=== PATIENT | female | born 1980 | race Caucasian/White ===

== ENCOUNTER 2024-06-10 11:31 | Outpatient (OUT) | payer MEDICAID, SELFPAY ==
[2024-06-10 12:02] LABS: Basophils Percent Auto 0.5 % (0.2-2.0); Eosinophils Absolute Auto 0.1 10^3/uL (0.0-0.7); Eosinophils Percent Auto 1.9 % (0.9-7.0); Hemoglobin 13.2 g/dL (12.0-16.0); Immature Granulocytes Abs Auto 0.03 10^3/uL (0.00-0.03); Immature Granulocytes Pct Auto 0.4 % (0.0-0.5); Lymphocytes Absolute Auto 1.8 10^3/uL (1.2-3.8); Mean Corpuscular HGB Conc 32.2 g/dL (29.9-35.2); Mean Corpuscular Hemoglobin 26.8 pg (26.7-34.0); Mean Corpuscular Volume 83.3 fL (81.0-99.0); Mean Platelet Volume 9.9 fL (9.5-13.5); Monocytes Absolute Auto 0.4 10^3/uL (0.3-0.8); Monocytes Percent Auto 5.2 % (1.7-12.0); Neutrophils Absolute Auto 5.1 10^3/uL (1.4-6.5); Platelet Count 300 10^3/uL (150-450); Red Blood Count 4.92 10^6/uL (4.20-5.40); Red Cell Distribution Width 12.4 % (11.0-15.0); White Blood Count 7.5 10^3/uL (4.0-11.0)
[2024-06-10 12:08] LABS: Estimated Average Glucose 100 mg/dL; Glycohemoglobin A1C 5.1 % (4.5-6.2)
[2024-06-10 12:19] LABS: Alanine Aminotransferase 35 U/L (14-59); Albumin Globulin Ratio 0.7; Albumin Level 3.2 g/dL (3.4-5.0); Alkaline Phosphatase 70 U/L (46-116); Anion Gap 8.6; Aspartate Amino Transferase 19 U/L (15-37); BUN Creatinine Ratio 14.5; Bilirubin Total 0.6 mg/dL (0.2-1.0); Calcium 8.8 mg/dL (8.5-10.1); Carbon Dioxide 29.1 mmol/L (21.0-32.0); Chloride 102 mmol/L (98-107); Chol HDL Ratio 5.3; Cholesterol 264 mg/dL (<=200); Estimated GFR (African America >60 (>=60); Estimated GFR (Non-African Ame >60 (>=60); Globulin 4.4 g/dL; Glucose 93 mg/dL (74-106); HDL Cholesterol 50 mg/dL (40-60); Potassium 3.7 mmol/L (3.5-5.1); Sodium 136 mmol/L (136-145); Thyroid Stimulating Hormone 2.815 uIU/mL (0.358-3.740); Total Protein 7.6 g/dL (6.4-8.2); Triglycerides 152 mg/dL (<=150); VLDL CHOLESTEROL 30.4 mg/dL
[2024-06-10 12:30] LABS: Bilirubin Urine NEGATIVE (NEGATIVE); Blood Urine TRACE-L (NEGATIVE); Clarity Urine CLEAR (CLEAR); Color Urine LT. YELLOW (YELLOW); Glucose Urine UA NEGATIVE (NEGATIVE); Ketones Urine NEGATIVE (NEGATIVE); Leukocyte Esterase Urine SMALL (NEGATIVE); Nitrite Urine NEGATIVE (NEGATIVE); Protein Urine NEGATIVE (NEG/TRACE); Urobilinogen Urine 0.2 EU/dL (0.2-1.0)
[2024-06-10 12:57] LABS: Urine Microscopic Indicated YES
[2024-06-10 13:12] LABS: Bacteria Urine MODERATE #/HPF (NONE SEEN); Cast Seen? NONE SEEN #/LPF (NONE SEEN); Crystals Seen? None Seen #/HPF (None Seen); Mucus Urine TRACE (NONE SEEN); RBC Urine 0-2 #/HPF (0-2); Squamous Epithelial Cell Urine FEW #/LPF (NONE/RARE)
== END 2024-06-10 11:32 | disposition home or self-care (01) ==
PROVIDERS: PCP Nurse Practitioner; Visit Provider Nurse Practitioner
DX: Z01.419 Encounter for gynecological examination (general) (routine) without abnormal findings (principal); Z78.9 Other specified health status
CPT/HCPCS: 36415; 80053; 80061; 81001; 83036; 84443; 85025; 87624; 88175

== ENCOUNTER 2024-06-10 21:36 | Outpatient (REF) | payer MEDICAID, SELFPAY | END 2024-06-10 21:37 | disposition home or self-care (01) | LOC: LAB 21:36 | PROVIDERS: PCP Nurse Practitioner; Visit Provider Nurse Practitioner | DX: Z01.419 Encounter for gynecological examination (general) (routine) without abnormal findings (principal) | CPT/HCPCS: 87624; 88175 ==

== ENCOUNTER 2024-06-14 06:54 | Outpatient (RCR) | payer MEDICAID, SELFPAY | END 2024-07-10 10:31 | disposition home or self-care (01) | LOC: PT 06:54 | PROVIDERS: PCP Nurse Practitioner; Visit Provider Nurse Practitioner | DX: M54.50 Low back pain, unspecified (principal) | CPT/HCPCS: 97010; 97110; 97112; 97140; 97161 ==

== ENCOUNTER 2024-06-14 11:22 | Outpatient (OUT) | payer MEDICAID, SELFPAY ==
--- NOTE | 2024-06-14 11:24 | MM_ITS ---
Patient Name: JOSE RODRIGUEZ MR#: [id number] : 1980 Exam Date: 06/14/2024 Ordering Doctor: KIRBY Byrne CNP RADIOLOGY REPORT PROCEDURE: MM TOMOSYNTHESIS SCREENING BI COMPARISON: MG MAMM SCREEN 3D VALERY CAD, 01/24/2022. INDICATIONS: Screening Calculator Name NCI Breast Cancer Risk Assessment Tool 5 Year Breast Cancer Risk 0.60% Lifetime Breast Cancer Risk 8.90% Personal Breast Cancer No Personal Ovarian Cancer No Treatments None Family Cancers Grandmother-paternal with lung cancer at age 66. LOCATION: [facility] BREAST COMPOSITION: The breasts are heterogeneously dense,which may obscure small masses. FINDINGS: DIAGNOSTIC CATEGORY 1--NEGATIVE. RIGHT BREAST: No significant suspicious finding. No significant change has occurred. LEFT BREAST: No significant suspicious finding. No significant change has occurred. RECOMMENDATIONS: ROUTINE MAMMOGRAM AND CLINICAL EVALUATION IN 12 MONTHS. PLEASE NOTE: A NORMAL MAMMOGRAM DOES NOT EXCLUDE THE POSSIBILITY OF BREAST CANCER. A CLINICALLY SUSPICIOUS PALPABLE LUMP SHOULD BE BIOPSIED. Dictated by: Boston Mccarthy M.D. on 06/14/2024 at 14:19 Approved by: Boston Mccarthy M.D. on 06/14/2024 at 14:25
== END 2024-06-14 11:23 | disposition home or self-care (01) ==
LOC: MAMMO 11:22
PROVIDERS: PCP Nurse Practitioner; Visit Provider Nurse Practitioner
DX: Z12.31 Encounter for screening mammogram for malignant neoplasm of breast (principal); M54.50 Low back pain, unspecified; Z80.1 Family history of malignant neoplasm of trachea, bronchus and lung
CPT/HCPCS: 77063; 77067; 97110; 97112; 97140; 97161

== ENCOUNTER 2024-07-29 10:31 | Outpatient (OUT) | payer MEDICAID, SELFPAY ==
[2024-07-29 10:47] LABS: Basophils Percent Auto 0.5 % (0.2-2.0); Eosinophils Absolute Auto 0.2 10^3/uL (0.0-0.7); Eosinophils Percent Auto 2.1 % (0.9-7.0); Immature Granulocytes Abs Auto 0.02 10^3/uL (0.00-0.03); Immature Granulocytes Pct Auto 0.3 % (0.0-0.5); Mean Corpuscular HGB Conc 33.3 g/dL (29.9-35.2); Mean Corpuscular Hemoglobin 27.3 pg (26.7-34.0); Mean Corpuscular Volume 81.8 fL (81.0-99.0); Mean Platelet Volume 10.1 fL (9.5-13.5); Monocytes Absolute Auto 0.3 10^3/uL (0.3-0.8); Neutrophils Absolute Auto 5.3 10^3/uL (1.4-6.5); Neutrophils Percent Auto 68.1 % (43.0-75.0); Platelet Count 264 10^3/uL (150-450); Red Blood Count 4.77 10^6/uL (4.20-5.40); Red Cell Distribution Width 12.5 % (11.0-15.0); White Blood Count 7.8 10^3/uL (4.0-11.0)
--- OUTSIDE RECORDS SUMMARY | 2024-07-29 10:53 | XMS_ITS | CCD ---
Author Organization [facility] Care Team Providers Care Stock Supervisor Name Role Phone AICHHOLZ, STEREO EQUIPMENT INSTALLER TRIP Consulting Unavailable AICHHOLZ, STEREO EQUIPMENT INSTALLER TRIP Primary Care Unavailable AICHHOLZ, STEREO EQUIPMENT INSTALLER TRIP Admitting Unavailable AICHHOLZ, STEREO EQUIPMENT INSTALLER TRIP Attending Unavailable AICHHOLZ, STEREO EQUIPMENT INSTALLER TRIP Consulting Unavailable AICHHOLZ, STEREO EQUIPMENT INSTALLER TRIP Primary Care Unavailable AICHHOLZ, STEREO EQUIPMENT INSTALLER TRIP Admitting Unavailable AICHHOLZ, STEREO EQUIPMENT INSTALLER TRIP Attending Unavailable AICHHOLZ, STEREO EQUIPMENT INSTALLER TRIP Consulting Unavailable AICHHOLZ, STEREO EQUIPMENT INSTALLER TRIP Primary Care Unavailable AICHHOLZ, STEREO EQUIPMENT INSTALLER TRIP Admitting Unavailable AICHHOLZ, STEREO EQUIPMENT INSTALLER TRIP Attending Unavailable AICHHOLZ, STEREO EQUIPMENT INSTALLER TRIP Primary Care Unavailable DR JINNY WHITE V Consulting Unavailable AICHHOLZ, STEREO EQUIPMENT INSTALLER TRIP Admitting Unavailable AICHHOLZ, STEREO EQUIPMENT INSTALLER TRIP Attending Unavailable AICHHOLZ, STEREO EQUIPMENT INSTALLER TRIP Consulting Unavailable AICHHOLZ, TRIP Attending Unavailable Problems Active Problems Problem Classification Problem Date Documented Da te Episodic/Chronic Conditions associated with dizziness or vertigo (4 sources) Dizziness and giddiness; Translations: [DIZZINESS AND GIDDINESS] Onset: 10-31-2022 Episodic Disorders of lipid metabolism (4 sources) Hyperlipidemia, unspecified; Translations: [HYPERLIPIDEMIA UNSPECIFIED] Onset: 01-15-2022 Chronic Mood disorders (1 source) Mood disorders; Translations: [DEPRESSION UNSPECIFIED] Onset: 01-19-2022 Other nutritional; endocrine; and metabolic disorders (1 source) Morbid (severe) obesity due to excess calories; Translations: [MORBID SEVERE OBES D/T EXCESS WILMA] Onset: 01-19-2022 Chronic Other nutritional; endocrine; and metabolic disorders (1 source) Body mass index (BMI) 40.0-44.9, adult; Translations: [BODY MASS INDEX BMI 40.0-44.9 ADULT] Onset: 01-19-2022 Chronic Past or Other Problems Problem Classification Problem Date Documented Da te Episodic/Chronic Genitourinary symptoms and ill-defined conditions (1 source) Asymptomatic microscopic hematuria; Translations: [ASYMPTOMATIC MICROSCOPIC HEMATURIA] Onset: 01-19-2022 Episodic Other screening for suspected conditions (not mental disorders or infectious disease) (8 sources) Encounter for screening mammogram for malignant neoplasm of breast; Translations: [Encounter for screening for malignant neoplasm of cervix] Onset: 01-18-2022 Episodic Residual codes; unclassified (1 source) Family history of malignant neoplasm of trachea, bronchus and lung; Translations: [FAM HX MALIG NEOPLSM TRACH BRON LNG] Onset: 01-26-2022 Episodic Results Test Name Value Interpretation Reference Range Facility CBC AUTO DIFFon 10-31-2022 BASO # 0.0 103/ul Normal 0.0-0.1 [facility] Comment on above: Performed By: #### C BC #### [facility] [address] [place] [address] Dr. Zainab Simpson Basophils/100 WBC (Bld) 0.5 % Normal 0.2-2.0 [facility] Comment on above: Performed By: #### C BC #### [facility] [address] [place] [address] Dr. Zainab Simpson EO # 0.1 103/ul Normal 0.0-0.7 [facility] Comment on above: Performed By: #### C BC #### [facility] [address] [place] [address] Dr. Zainab Simpson Eosinophils/100 WBC (Bld) 1.6 % Normal 0.9-7.[address] [facility] Comment on above: Performed By: #### C BC #### [facility] [address] [place] [address] Dr. Zainab Simpson Erythrocyte distribution width (RBC) [Ratio] 12.2 % Normal 11.0-15.0 [facility] Comment on above: Performed By: #### C BC #### [facility] [address] [place] [address] Dr. Zainab Simpson Hematocrit (Bld) [Volume fraction] 41.2 % Normal 36.0-48.0 [facility] Comment on above: Performed By: #### C BC #### [facility] [address] [place] [address] Dr. Zainab Simpson Hemoglobin (Bld) [Mass/Vol] 13.7 g/dL Normal 12.0-16.0 [facility] Comment on above: Performed By: #### C BC #### [facility] [address] [place] [address] Dr. Zainab Simpson IG # 0.03 10e3/ul Normal 0.00-0.03 [facility] Comment on above: Performed By: #### C BC #### [facility] [address] [place] [address] Dr. Zainab Simpson IG % 0.3 % Normal 0.0-0.5 [facility] Comment on above: Performed By: #### C BC #### [facility] [address] [place] [address] Dr. Zainab Simpson LYMPH # 2.0 103/ul Normal 1.2-3.[address] [facility] Comment on above: Performed By: #### C BC #### [facility] [address] [place] [address] Dr. Zainab Simpson Lymphocytes/100 WBC (Bld) 23.1 % Normal 20.5-60.0 [facility] Comment on above: Performed By: #### C BC #### [facility] [address] [place] [address] Dr. Zainab Simpson MANUAL DIFF REQ NO Normal [facility] Comment on above: Performed By: #### C BC #### [facility] [address] [place] [address] Dr. Zainab Simpson MCH (RBC) [Entitic mass] 27.6 pg Normal 26.7-34.[address] [facility] Comment on above: Performed By: #### C BC #### [facility] [address] [place] [address] Dr. Zainab Simpson MCHC (RBC) [Mass/Vol] 33.3 g/dL Normal 29.9-35.[address] [facility] Comment on above: Performed By: #### C BC #### [facility] [address] [place] [address] Dr. Zainab Simpson MCV (RBC) [Entitic vol] 82.9 fL Normal 81.0-99.[address] [facility] Comment on above: Performed By: #### C BC #### [facility] [address] [place] [address] Dr. Zainab Simpson MONO # 0.3 103/ul Normal 0.3-0.[address] [facility] Comment on above: Performed By: #### C BC #### [facility] [address] [address] [address] Zainab Simpson Monocytes/100 WBC (Bld) 3.7 % Normal 1.7-12.[address] [facility] Comment on above: Performed By: #### C BC #### [facility] [address] [place] [address] Dr. Zainab Simpson NEUT # 6.3 103/ul Normal 1.4-6.[address] [facility] Comment on above: Performed By: #### C BC #### [facility] [address] [place] [address] Dr. Zainab Simpson Neutrophils/100 WBC (Bld) 70.8 % Normal 43.0-75.[address] [facility] Comment on above: Performed By: #### C BC #### [facility] [address] [place] [address] Dr. Zainab Simpson Platelet mean volume (Bld) [Entitic vol] 10.3 fL Normal 9.5-13.[address] [facility] Comment on above: Performed By: #### C BC #### [facility] [address] [place] [address] Dr. Zainab Simpson PLT 289 103/ul Normal 150-[address] [facility] Comment on above: Performed By: #### C BC #### [facility] [address] [place] [address] Dr. Zainab Simpson RBC 4.97 106/ul Normal 4.20-5.[address] [facility] Comment on above: Performed By: #### C BC #### [facility] [address] [place] [address] Dr. Zainab Simpson WBC 8.8 103/ul Normal 4.0-11.0 [facility] Comment on above: Performed By: #### C BC #### [facility] [address] [place] [address] Dr. Zainab Smipson FREE T4on 10-31-2022 Free T4 [Mass/Vol] 0.89 ng/dL Normal 0.76-1.46 [facility] Comment on above: Performed By: #### F T4 #### [facility] [address] [place] [address] Dr. Zainab Simpson PROF 14(COMP METB)on 022 Albumin [Mass/Vol] 3.2 g/dL Critically low 3.4-5.0 [facility] Comment on above: Performed By: #### T SH, CMP #### [facility] [address] [place] [address] Dr. Zainab Simpson Albumin/Globulin [Mass ratio] 0.7 {ratio} Normal [facility] Comment on above: Performed By: #### T SH, CMP #### [facility] [address] [place] [address] Dr. Zainab Simpson ALP [Catalytic activity/Vol] 64 U/L Normal 46-116 [facility] Comment on above: Performed By: #### T SH, CMP #### [facility] [address] [place] [address] Dr. Zainab Simpson ALT [Catalytic activity/Vol] 32 U/L Normal 14-59 [facility] Comment on above: Performed By: #### T SH, CMP #### [facility] [address] [place] [address] Dr. Zainab Simpson Anion gap [Moles/Vol] 11.0 mmol/L Normal [facility] Comment on above: Performed By: #### T SH, CMP #### [facility] [address] [place] [address] Dr. Zainab Simpson AST [Catalytic activity/Vol] 21 U/L Normal 15-37 [facility] Comment on above: Performed By: #### T SH, CMP #### [facility] [address] [place] [address] Dr. Zainab Simpson Bilirubin [Mass/Vol] 0.5 mg/dL Normal 0.2-1.0 [facility] Comment on above: Performed By: #### T SH, CMP #### [facility] [address] [place] [address] Dr. Zainab Simpson Calcium [Mass/Vol] 9.0 mg/dL Normal 8.5-10.1 [facility] Comment on above: Performed By: #### T SH, CMP #### [facility] [address] [place] [address] Dr. Zainab Simpson Chloride [Moles/Vol] 102 mmol/L Normal 98-107 [facility] Comment on above: Performed By: #### T SH, CMP #### [facility] [address] [place] [address] Dr. Zainab Simpson CO2 [Moles/Vol] 30.2 mmol/L Normal 21.0-32.0 [facility] Comment on above: Performed By: #### T SH, CMP #### [facility] [address] [place] [address] Dr. Zainab Simpson Creatinine [Mass/Vol] 0.62 mg/dL Normal 0.55-1.02 [facility] Comment on above: Performed By: #### T SH, CMP #### [facility] [address] [place] [address] Dr. Zainab Simpson EGFR-AF LAO >60 Normal >=60 [facility] Comment on above: Performed By: #### T SH, CMP #### [facility] [address] [place] [address] Dr. Zainab Simpson EGFR-NON AF LAO >60 Normal >=60 [facility] Comment on above: Performed By: #### T SH, CMP #### [facility] [address] [place] [address] Dr. Zainab Simpson Globulin (S) [Mass/Vol] 4.5 g/dL Normal [facility] Comment on above: Performed By: #### T SH, CMP #### [facility] [address] [place] [address] Dr. Zainab Simpson Glucose [Mass/Vol] 90 mg/dL Normal 74-106 [facility] Comment on above: Performed By: #### T SH, CMP #### [facility] [address] [place] [address] Dr. Zainab Simpson Potassium [Moles/Vol] 4.2 mmol/L Normal 3.5-5.1 [facility] Comment on above: Performed By: #### T ERWIN, CMP #### [facility] [address] [place] [address] Dr. Zainab Simpson Protein [Mass/Vol] 7.7 g/dL Normal 6.4-8.2 [facility] Comment on above: Performed By: #### T ERWIN, CMP #### [facility] [address] [place] [address] Dr. Zainab Simpson Sodium [Moles/Vol] 139 mmol/L Normal 136-145 [facility] Comment on above: Performed By: #### T ERWIN, CMP #### [facility] [address] [place] [address] Dr. Zainab Simpson Urea nitrogen [Mass/Vol] 10.0 mg/dL Normal 7.0-18.0 [facility] Comment on above: Performed By: #### T ERWIN, CMP #### [facility] [address] [place] [address] Dr. Zainab Simpson Urea nitrogen/Creatinine [Mass ratio] 16.1 mg/mg Normal [facility] Comment on above: Performed By: #### T ERWIN, CMP #### [facility] [address] [place] [address] Dr. Zainab Simpson TSHon 10-31-2022 TSH 2.431 uIU/mL Normal 0.358-3.740 [facility] Comment on above: Performed By: #### T ERWIN, CMP #### [facility] [address] [place] [address] Dr. Zainab Simpson MG MAMM SCREEN 3D VALERY CADon 01-24-2022 MG MAMM SCREEN 3D VALERY CAD Patient: JOSE RODRIGUEZ Exam Date: 01/24/2022 : 1980 Gender:F Ordering : KIRBY MOCTEZUMA STEREO EQUIPMENT INSTALLER Admission #: [id number] Family : Order #: [id number] CLICK HERE TO VIEW EXAM RADIOLOGY REPORT PROCEDURE: MAMMOGRAM SCREENING 3D BILATERAL CAD COMPARISON: None. INDICATIONS: Screening mammography Calculator Name NCI Breast Cancer Risk Assessment Tool 5 Year Breast Cancer Risk 0.50% Lifetime Breast Cancer Risk 9.00% Personal Breast Cancer No Personal Ovarian Cancer No Treatments None Family Cancers Grandmother-paternal with lung cancer at age 66. LOCATION: [facility] BREAST COMPOSITION: Heterogeneously dense,which may obscure small masses. FINDINGS: DIAGNOSTIC CATEGORY 1--NEGATIVE. Scattered benign-appearing nodules are present. Scattered benign-appearing calcifications are present. RIGHT BREAST: No significant suspicious finding. LEFT BREAST: No significant suspicious finding. RECOMMENDATIONS: ROUTINE MAMMOGRAM AND CLINICAL EVALUATION IN 12 MONTHS. PLEASE NOTE: A NORMAL MAMMOGRAM DOES NOT EXCLUDE THE POSSIBILITY OF BREAST CANCER. A CLINICALLY SUSPICIOUS PALPABLE LUMP SHOULD BE BIOPSIED. Dictated by: Jinny White MD on 01/24/2022 at 10:40 Approved by: Jinny White MD on 01/24/2022 at 10:42 Normal [facility] PAP ACOG PANEL 2: 30 to 65on 01-22-2022 . . Normal [facility] Comment on above: Result Comment: Perf ormed at: WB Performed By: #### [id number] #### [facility] [address] [place] [address] Dr. Zainab Simpson DIAGNOSIS: Comment Normal [facility] Comment on above: Result Comment: NEGA TIVE FOR INTRAEPITHELIAL LESION OR MALIGNANCY. Performed at: WB Performed By: #### [id number] #### [facility] [address] [address] [address] Zainab Simpson HPV Aptima Negative Normal Negative [facility] Comment on above: Result Comment: This nucleic acid amplification test detects fourteen high-risk HPV types (16,18,31,33,35,39,45,51,52,56,58,59,66,68) without differentiation. Performed at: =G Performed By: #### [id number] #### [facility] [address] [address] [address] Zainab Simpson Methodology: Comment Normal [facility] Comment on above: Result Comment: This liquid based ThinPrep(R) pap test was screened with the use of an image guided system. Performed at: WB Performed By: #### [id number] #### [facility] [address] [address] [address] Zainab Simpson Note: Comment Normal [facility] Comment on above: Result Comment: The Pap smear is a screening test designed to aid in the detection of premalignant and malignant conditions of the uterine cervix. It is not a diagnostic procedure and should not be used as the sole means of detecting cervical cancer. Both false-positive and false-negative reports do occur. . Performed at: WB Performed By: #### [id number] #### [facility] [address] [address] [address] Zainab Simpson Performed by: Comment Normal [facility] Comment on above: Result Comment: Loretta Oliveira, Voip Network Engineer (ASCP) Performed at: WB Performed By: #### [id number] #### [facility] [address] [place] [address] Dr. Zainab Simpson Specimen adequacy: Comment Normal [facility] Comment on above: Result Comment: Sati sfactory for evaluation. Endocervical and/or squamous metaplastic cells (endocervical component) are present. Performed at: WB Performed By: #### [id number] #### [facility] [address] [place] [address] Dr. Zainab Simpson Age Gdln ACOG Testing 30-65 Normal [facility] Comment on above: Performed By: #### [id number] #### [facility] [address] [place] [address] Dr. Zainab Simpson VAGINITIS/VAGINOSIS DNA PROB Joe 01-20-2022 Mana species Negative Normal Negative [facility] Comment on above: Performed By: #### V AGINT ####[facility] [address] [address]Dr. Zainab Simpson Gardnerella vaginalis Negative Normal Negative [facility] Comment on above: Performed By: #### V AGINT ####[facility] [address] [id number]. Zainab Simpson Trichomonas vaginalis Negative Normal Negative [facility] Comment on above: Performed By: #### V AGINT ####[facility] [address] [id number]. Zainab Simpson CBC AUTO DIFFon 01-15-2022 BASO # 0.0 103/ul Normal 0.0-0.[address] [facility] Comment on above: Performed By: #### C BC ####[facility] [address] [address]Dr. Zainab Simpson Basophils/100 WBC (Bld) 0.5 % Normal 0.2-2.[address] [facility] Comment on above: Performed By: #### C BC ####[facility] [address] [id number]. Zainab Simpson EO # 0.2 103/ul Normal 0.0-0.[address] [facility] Comment on above: Performed By: #### C BC ####[facility] [address] [place], [place] [id number]. Zainab Simpson Eosinophils/100 WBC (Bld) 1.8 % Normal 0.9-7.[address] [facility] Comment on above: Performed By: #### C BC ####[facility] [address] [phone]. Zainab Simpson Erythrocyte distribution width (RBC) [Ratio] 12.8 % Normal 11.0-15.[address] [facility] Comment on above: Performed By: #### C BC ####[facility] [address] [place], [place] [address]Dr. Zainab Simpson Hematocrit (Bld) [Volume fraction] 40.9 % Normal 36.0-48.[address] [facility] Comment on above: Performed By: #### C BC ####[facility] [address] [phone]. Zainab Simpson Hemoglobin (Bld) [Mass/Vol] 13.4 g/dL Normal 12.0-16.[address] [facility] Comment on above: Performed By: #### C BC ####[facility] [address] [phone]. Zainab Simpson IG # 0.02 10e3/ul Normal 0.00-0.[address] [facility] Comment on above: Performed By: #### C BC ####[facility] [address] [id number]. Zainab Simpson IG % 0.2 % Normal 0.0-0.[address] [facility] Comment on above: Performed By: #### C BC ####[facility] [address] [id number]. Zainab Simpson LYMPH # 2.3 103/ul Normal 1.2-3.[address] [facility] Comment on above: Performed By: #### C BC ####[facility] [address] [address]Dr. Zainab Simpson Lymphocytes/100 WBC (Bld) 26.8 % Normal 20.5-60.[address] [facility] Comment on above: Performed By: #### C BC ####[facility] [address] [address]Dr. Zainab Simpson MANUAL DIFF REQ NO Normal [facility] Comment on above: Performed By: #### C BC ####[facility] [address] [address]Dr. Zainab Simpson MCH (RBC) [Entitic mass] 27.6 pg Normal 26.7-34.[address] [facility] Comment on above: Performed By: #### C BC ####[facility] [address] [address]Dr. Zainab Simpson MCHC (RBC) [Mass/Vol] 32.8 g/dL Normal 29.9-35.[address] [facility] Comment on above: Performed By: #### C BC ####[facility] [address] [address]Dr. Zainab Simpson MCV (RBC) [Entitic vol] 84.3 fL Normal 81.0-99.[address] [facility] Comment on above: Performed By: #### C BC ####[facility] [address] [phone]. Zainab Simpson MONO # 0.4 103/ul Normal 0.3-0.[address] [facility] Comment on above: Performed By: #### C BC ####[facility] [address] [phone]. Zainab Simpson Monocytes/100 WBC (Bld) 4.9 % Normal 1.7-12.[address] [facility] Comment on above: Performed By: #### C BC ####[facility] [address] [phone]. Zainab Simpson NEUT # 5.7 103/ul Normal 1.4-6.[address] [facility] Comment on above: Performed By: #### C BC ####[facility] [address] [phone]. Zainab Simpson Neutrophils/100 WBC (Bld) 65.8 % Normal 43.0-75.[address] [facility] Comment on above: Performed By: #### C BC ####[facility] [address] [phone]. Zainab Simpson Platelet mean volume (Bld) [Entitic vol] 10.1 fL Normal 9.5-13.[address] [facility] Comment on above: Performed By: #### C BC ####[facility] [address] [phone]. Zainab Simpson PLT 265 103/ul Normal 150-[address] [facility] Comment on above: Performed By: #### C BC ####[facility] [address] [phone]. Zainab Simpson RBC 4.85 106/ul Normal 4.20-5.[address] [facility] Comment on above: Performed By: #### C BC ####[facility] [address] [phone]. Zainab Simpson WBC 8.7 103/ul Normal 4.0-11.[address] [facility] Comment on above: Performed By: #### C BC ####[facility] [address] [place], [place] [id number]. Zainab Simpson GLYCOHEMOGLOBIN A1Con 2021 ADA RECOMMENDATION ADA THERAPEUTIC TARGET 6.0 - 7.0 ACTION SUGGESTED > 7.0 Normal [facility] Comment on above: Performed By: #### A 1C #### [facility] [address] [address] [address] Zainab Simpson Glucose [Mass/Vol] 111 mg/dL Normal [facility] Comment on above: Performed By: #### A 1C #### [facility] [address] [address] [address] Zainab Simpson HbA1c (Bld) [Mass fraction] 5.5 % Normal <=6.0 [facility] Comment on above: Performed By: #### A 1C #### [facility] [address] [place] [address] Dr. Zainab Simpson LIPID PROFILEon 01-15-2022 CHOL-HDL RATIO NORM SEE BELOW Normal [facility] Comment on above: Result Comment: 3.3 - 4.4 LOW RISK 4.4 - 7.1 AVERAGE RISK 7.1 - 11.0 MODERATE RISK >11.0 HIGH RISK Performed By: #### T SH, LIPID, CMP #### [facility] [address] [address] [address] Zainab Simpson Cholesterol [Mass/Vol] 194 mg/dL Normal <=200 [facility] Comment on above: Performed By: #### T SH, LIPID, CMP #### [facility] [address] [address] [address] Zainab Simpson Cholesterol in HDL [Mass/Vol] 50 mg/dL Normal [facility] Comment on above: Performed By: #### T SH, LIPID, CMP #### [facility] [address] [address] [address] Zainab Simpson Cholesterol in LDL [Mass/Vol] 108.8 mg/dL Normal [facility] Comment on above: Performed By: #### T SH, LIPID, CMP #### [facility] [address] [place] [address] Dr. Zainab Simpson Cholesterol.total/Cho lesterol in HDL [Mass ratio] 3.9 {ratio} Normal [facility] Comment on above: Performed By: #### T SH, LIPID, CMP #### [facility] [address] [address] [address] Zainab Simpson HDL NORMAL > or = 60 mg/dl - LO W CARDIOVASCULAR RISK <40 mg/dl - HIGH CARDIOVASCULAR RISK Normal [facility] Comment on above: Performed By: #### T SH, LIPID, CMP #### [facility] [address] [address] [address] Zainab Simpson LDL CALC NORMAL SEE BELOW Normal [facility] Comment on above: Result Comment: <100 mg/dl OPTIMAL 100 - 129 mg/dl NEAR OR ABOVE OPTIMAL 130 - 159 mg/dl BORDERLINE HIGH 160 - 189 mg/dl HIGH >190 mg/dl VERY HIGH Performed By: #### T SH, LIPID, CMP #### [facility] [address] [address] [address] Zainab Simpson Triglyceride [Mass/Vol] 176 mg/dL Critically high <=150 [facility] Comment on above: Performed By: #### T SH, LIPID, CMP #### [facility] [address] [address] [address] Zainab Simpson VLDL CALC 35.2 mg/dL Normal [facility] Comment on above: Performed By: #### T SH, LIPID, CMP #### [facility] [address] [address] [address] Zainab Simpson PROF 14(COMP METB)on 022 Albumin [Mass/Vol] 3.2 g/dL Critically low 3.5-5.0 [facility] Comment on above: Performed By: #### T SH, LIPID, CMP ####[facility] [address] [address]Dr. Zainab Simpson Albumin/Globulin [Mass ratio] 0.7 {ratio} Normal [facility] Comment on above: Performed By: #### T SH, LIPID, CMP ####[facility] [address] [address]Dr. Zainab Simpson ALP [Catalytic activity/Vol] 70 U/L Normal 38-126 [facility] Comment on above: Performed By: #### T SH, LIPID, CMP ####[facility] [address] [address]Dr. aZinab Simpson ALT [Catalytic activity/Vol] 28 U/L Normal 9-[address] [facility] Comment on above: Performed By: #### T SH, LIPID, CMP ####[facility] [address] [address]Dr. Zainab Simpson Anion gap [Moles/Vol] 7.7 mmol/L Normal [facility] Comment on above: Performed By: #### T SH, LIPID, CMP ####[facility] [address] [place], [place] [address]Dr. Zainab Simpson AST [Catalytic activity/Vol] 14 U/L Normal 14-36 [facility] Comment on above: Performed By: #### T SH, LIPID, CMP ####[facility] [address] [place], [place] [address]Dr. Zainab Simpson Bilirubin [Mass/Vol] 0.4 mg/dL Normal 0.2-1.[address] [facility] Comment on above: Performed By: #### T SH, LIPID, CMP ####[facility] [address] [place], [place] [address]Dr. Zainab Simpson Calcium [Mass/Vol] 9.1 mg/dL Normal 8.4-10.2 [facility] Comment on above: Performed By: #### T SH, LIPID, CMP ####[facility] [address] [place], [place] [address]Dr. Zainab Simpson Chloride [Moles/Vol] 105 mmol/L Normal 98-[address] [facility] Comment on above: Performed By: #### T SH, LIPID, CMP ####[facility] [address] [place], [place] [address]Dr. Zainab Simpson CO2 [Moles/Vol] 31.0 mmol/L Critically high 22.0-30.0 [facility] Comment on above: Performed By: #### T SH, LIPID, CMP ####[facility] [address] [place], [place] [address]Dr. Zainab Simpson Creatinine [Mass/Vol] 0.63 mg/dL Normal 0.52-1.[address] [facility] Comment on above: Performed By: #### T ERWIN, LIPID, CMP ####[facility] [address] [place] [id number]. Zainab Simpson EGFR-AF LAO >60 Normal >=60 [facility] Comment on above: Performed By: #### T SH, LIPID, CMP ####[facility] [address] [place] [id number]. Zainab Simpson EGFR-NON AF LAO >60 Normal >=[address] [facility] Comment on above: Performed By: #### T ERWIN, LIPID, CMP ####[facility] [address] [address]Dr. Zainab Simpson Globulin (S) [Mass/Vol] 4.3 g/dL Normal [facility] Comment on above: Performed By: #### T ERWIN, LIPID, CMP ####[facility] [address] [address]Dr. Zainab Simpson Glucose [Mass/Vol] 92 mg/dL Normal 74-106 [facility] Comment on above: Performed By: #### T ERWIN, LIPID, CMP ####[facility] [address] [address]Dr. Zainab Simpson Potassium [Moles/Vol] 3.7 mmol/L Normal 3.4-5.[address] [facility] Comment on above: Performed By: #### T ERWIN, LIPID, CMP ####[facility] [address] [address]Dr. Zainab Simpson Protein [Mass/Vol] 7.5 g/dL Normal 6.1-8.2 [facility] Comment on above: Performed By: #### T ERWIN, LIPID, CMP ####[facility] [address] [address]Dr. Zainab Simpson Sodium [Moles/Vol] 140 mmol/L Normal 137-145 [facility] Comment on above: Performed By: #### T ERWIN, LIPID, CMP ####[facility] [address] [place] [id number]. Zainab Simpson Urea nitrogen [Mass/Vol] 9.0 mg/dL Normal 7.0-17.[address] [facility] Comment on above: Performed By: #### T ERWIN, LIPID, CMP ####[facility] [address] [place], [place] [address]Dr. Zainab Simpson Urea nitrogen/Creatinine [Mass ratio] 14.3 mg/mg Normal [facility] Comment on above: Performed By: #### T ERWIN, LIPID, CMP ####[facility] [address] [place], [place] [address]AeDr. Zainab Simpson TSHon 01-15-2022 TSH 4.291 uIU/mL Normal 0.470-4.680 [facility] Comment on above: Performed By: #### T SH, LIPID, CMP #### [facility] [address] [place] [address] Dr. Zainab Simpson TSH RANGE SEE BELOW Normal [facility] Comment on above: Result Comment: <0.3 4 UIU/ml HYPERTHYROID 0.34-5.60 UIU/ml EUTHYROID >5.60 UIU/ml HYPOTHYROID Performed By: #### T ERWIN, LIPID, CMP #### [facility] [address] [place] [address] Dr. Zainab Simpson UA RANDOM W/MICROSCOPICon BACTERIA TRACE Abnormal NONE SEEN [facility] Comment on above: Performed By: #### U AMIC #### [facility] [address] [address] [address] Zainab Simpson Bilirubin Ql (U) Negative Normal NEGATIVE [facility] Comment on above: Performed By: #### U AMIC #### [facility] [address] [address] [address] Zainab Simpson CAST NONE SEEN Normal NONE SEEN [facility] Comment on above: Performed By: #### U AMIC #### [facility] [address] [place] [address] Dr. Zainab Simpson Clarity (U) CLEAR Normal CLEAR [facility] Comment on above: Performed By: #### U AMIC #### [facility] [address] [address] [address] Zainab Simpson Color (U) LT. YELLOW Normal YELLOW [facility] Comment on above: Performed By: #### U AMIC #### [facility] [address] [place] [address] Dr. Zainab Simpson Crystals LM Nom (Urine sed) NONE SEEN Normal NONE SEEN [facility] Comment on above: Performed By: #### U AMIC #### [facility] [address] [address] [address] Zainab Simpson Epithelial cells LM Ql (Urine sed) FEW Abnormal NONE SEEN /RARE [facility] Comment on above: Performed By: #### U AMIC #### [facility] [address] [place] [address] Dr. Zainab Simpson Glucose Ql (U) Negative Normal NEGATIVE [facility] Comment on above: Performed By: #### U AMIC #### [facility] [address] [place] [address] Dr. Zainab Simpson Hemoglobin Ql (U) Negative Normal NEGATIVE [facility] Comment on above: Performed By: #### U AMIC #### [facility] [address] [place] [address] Dr. Zainab Simpson Ketones Ql (U) Negative Normal NEGATIVE [facility] Comment on above: Performed By: #### U AMIC #### [facility] [address] [place] [address] Dr. Zainab Simpson LEUKOCYTES Negative Normal NEGATIVE [facility] Comment on above: Performed By: #### U AMIC #### [facility] [address] [place] [address] Dr. Zainab Simpson MUCOUS NONE SEEN Normal NONE SEEN [facility] Comment on above: Performed By: #### U AMIC #### [facility] [address] [place] [address] Dr. Zainab Simpson Nitrite Ql (U) Negative Normal NEGATIVE [facility] Comment on above: Performed By: #### U AMIC #### [facility] [address] [place] [address] Dr. Zainab Simpson pH (U) 6.0 [pH] Normal 5-[address] [facility] Comment on above: Performed By: #### U AMIC #### [facility] [address] [address] [address] Zainab Simpson RBC NONE SEEN Abnormal 0-[address] [facility] Comment on above: Performed By: #### U AMIC #### [facility] [address] [address] [address] Zainab Simpson SPEC GRAVITY 1.025 Normal 1.005-<=1.025 [facility] Comment on above: Performed By: #### U AMIC #### [facility] [address] [address] [address] Zainab Simpson UA PROTEIN Negative Normal NEGATIVE/ TRACE [facility] Comment on above: Performed By: #### U AMIC #### [facility] [address] [address] [address] Zainab Simpson Urobilinogen Qn (U) 0.2 {Robyn'U}/dL Normal 0.2 - 1. 0 [facility] Comment on above: Performed By: #### U AMIC #### [facility] [address] [address] [address] Zainab Simpson WBC 0-2 Abnormal NONE SEEN [facility] Comment on above: Performed By: #### U AMIC #### [facility] [address] [address] [address] Zainab Simpson Encounters Encounter Date Encounter Type Care Provider Facility Start: 06-10-2024 End: 06-10-2024 ambulatory TRIP AICHHOLZ Not Available Start: 10-31-2022 End: 11-01-2022 ambulatory [employer] TRIP AICHHOLZ Facility:[facility] Start: 01-24-2022 End: 01-25-2022 ambulatory [employer] TRIP AICHHOLZ Facility:[facility] Start: 01-18-2022 End: 01-18-2022 ambulatory [employer] TRIP AICHHOLZ Facility:[facility] Start: 01-15-2022 End: 01-16-2022 ambulatory [employer]ST[employer] TRIP AICHHOLZ Facility:[facility] Payers Date Payer Category Payer Unknown [id number] 2.16.84 [id number] 1980 Unknown [id number] 2.16.84 [id number] 1980 Unknown [id number] 2.16.84 [id number] 1980 Unknown [id number] 2.16.84 [id number] 1980 Unknown [id number] 2.16.84 [id number] 1959 Unknown [id number] Unknown [id number] Summary Purpose Family History No Family History Records FoundNo Family History Records Found Advance Directives No Advanced Directives Records FoundNo Advanced Directives Records Found Additional Source Comments INFORMATION SOURCE (unrecogn ized section and content) DATE CREATED AUTHOR 01/11/2023 [facility] DATE CREATED AUTHOR AUTHOR'S JAYRO WREN 06/12/2024 [facility] EPIC FOR RECORDS PERTAINING TO PATIENTS WHO ARE OR HAVE BEEN ENROLLED IN A CHEMICAL DEPENDENCY/SUBSTANCEABUSE PROGRAM, SOME INFORMATION MAY BE OMITTED. This clinical summary was aggregated from multiple sources. Caution should be exercised in using it in the provision of clinical care. This summary normalizes information from multiple sources, and as a consequence, information in this document may materially change the coding, format and clinical context of patient data. In addition, data may be omitted in some cases. CLINICAL DECISIONS SHOULD BE BASED ON THE PRIMARY CLINICAL RECORDS. [facility] [employer] provides no warranty or guarantee of the accuracy or completeness of information in this document.
[2024-07-29 11:28] LABS: INR 0.99; Prothrombin Time 10.5 sec (9.0-11.6)
[2024-07-29 11:45] LABS: Free T4 0.94 ng/dL (0.76-1.46)
[2024-07-29 11:52] LABS: Thyroid Stimulating Hormone 2.547 uIU/mL (0.358-3.740)
[2024-07-29 12:02] LABS: HCG Quantitative <1 mIU/mL
== END 2024-07-29 10:32 | disposition home or self-care (01) ==
LOC: LAB 10:33
PROVIDERS: PCP Nurse Practitioner; Visit Provider Obstetrics & Gynecology
DX: R10.30 Lower abdominal pain, unspecified (principal); T83.89XA Other specified complication of genitourinary prosthetic devices, implants and grafts, initial encounter; N92.0 Excessive and frequent menstruation with regular cycle
CPT/HCPCS: 36415; 84439; 84443; 84702; 85025; 85610; 85730

== ENCOUNTER 2024-08-30 10:22 | Outpatient (OUT) | payer MEDICAID, SELFPAY ==
--- NOTE | 2024-08-30 10:28 | US_ITS ---
The [address] [address] Patient Name: JOSE RODRIGUEZ MRN: [id number] date: 1980 Sex: F Assigned Patient Location: Current Patient Location: Accession/Order Number: [id number] Exam Date: 08/30/2024 10:30 Report Date: 09/01/2024 04:45 At the request of: JOELLEN BALLESTEROS Procedure: US pelvis w/ transvaginal EXAMINATION: US pelvis w/ transvaginal HISTORY: Lower Abdominal Pain, Heavy Menses Due To IUD COMPARISON: No relevant comparison available. TECHNIQUE: Transabdominal and/or transvaginal sonographic examination was performed as indicated by examination type. FINDINGS: UTERUS: Normal size and appearance. Uterus size: 9.7 x 5.5 x 5.9 cm ENDOMETRIUM: IUD within lower endometrial cavity and cervix. Endometrial thickness: 8 mm RIGHT OVARY: Normal size and appearance. Duplex Doppler demonstrates normal waveform and flow; resistive index 0.6. Ovary size: 1.9 x 3.8 x 2.6 cm LEFT OVARY: Normal size and appearance. Duplex Doppler demonstrates normal waveform and flow; resistive index 0.5. Ovary size: 3.6 x 2.0 x 2.7 cm CUL-DE-SAC: Unremarkable. No significant free fluid. BLADDER: Unremarkable. OTHER: None. US/US pelvis w/ transvaginal IMPRESSION: 1. IUD is present, but is low within the endometrial cavity extending into the cervical canal. Electronically authenticated by: ABELARDO HALEY Date: 09/01/2024 04:45
--- OUTSIDE RECORDS SUMMARY | 2024-08-30 10:38 | XMS_ITS | CCD ---
Author Organization [facility] Care Team Providers Care Dental Technology Advisor Name Role Phone AICHHOLZ, CLIENT SERVICE CONSULTANT TRIP Consulting Unavailable AICHHOLZ, CLIENT SERVICE CONSULTANT TRIP Primary Care Unavailable AICHHOLZ, CLIENT SERVICE CONSULTANT TRIP Admitting Unavailable AICHHOLZ, CLIENT SERVICE CONSULTANT TRIP Attending Unavailable AICHHOLZ, CLIENT SERVICE CONSULTANT TRIP Consulting Unavailable AICHHOLZ, CLIENT SERVICE CONSULTANT TRIP Primary Care Unavailable AICHHOLZ, CLIENT SERVICE CONSULTANT TRIP Admitting Unavailable AICHHOLZ, CLIENT SERVICE CONSULTANT TRIP Attending Unavailable AICHHOLZ, CLIENT SERVICE CONSULTANT TRIP Consulting Unavailable AICHHOLZ, CLIENT SERVICE CONSULTANT TRIP Primary Care Unavailable AICHHOLZ, CLIENT SERVICE CONSULTANT TRIP Admitting Unavailable AICHHOLZ, CLIENT SERVICE CONSULTANT TRIP Attending Unavailable AICHHOLZ, CLIENT SERVICE CONSULTANT TRIP Primary Care Unavailable DR JINNY WHITE V Consulting Unavailable AICHHOLZ, CLIENT SERVICE CONSULTANT TRIP Admitting Unavailable AICHHOLZ, CLIENT SERVICE CONSULTANT TRIP Attending Unavailable AICHHOLZ, CLIENT SERVICE CONSULTANT TRIP Consulting Unavailable AICHHOLZ, TRIP Attending Unavailable JOELLEN BALLESTEROS Attending Unavailable AICHHOLZ, RTIP Referring Unavailable Problems Active Problems Problem Classification Problem [...] 10-31-2022 BASO # 0.0 103/ul Normal 0.0-0.1 [facility] Comment on above: Performed By: #### C BC #### [facility] [address] [place] [address] Dr. Zainab Simpson Basophils/100 WBC (Bld) 0.5 % Normal 0.2-2.0 [facility] Comment on above: Performed By: #### C BC #### [facility] [address] [place] [address] Dr. Zainab Simpson EO # 0.1 103/ul Normal 0.0-0.7 [facility] Comment on above: Performed By: #### C BC #### [facility] [address] [address] [address] Zainab Simpson Eosinophils/100 WBC (Bld) 1.6 % Normal 0.9-7.0 [facility] Comment on above: Performed By: #### C BC #### [facility] [address] [place] [address] Dr. Zainab Simpson Erythrocyte distribution width (RBC) [Ratio] 12.2 % Normal 11.0-15.0 [facility] Comment on above: Performed By: #### C BC #### [facility] [address] [place] [address] Dr. Zainab Simpson Hematocrit (Bld) [Volume fraction] 41.2 % Normal 36.0-48.0 [facility] Comment on above: Performed By: #### C BC #### [facility] [address] [place] [address] Dr. Zainab Simpson Hemoglobin (Bld) [Mass/Vol] 13.7 g/dL Normal 12.0-16.0 [facility] Comment on above: Performed By: #### C BC #### [facility] [address] [place] [address] Dr. Zainab Simpson IG # 0.03 10e3/ul Normal 0.00-0.03 [facility] Comment on above: Performed By: #### C BC #### [facility] [address] [place] [address] Dr. Zainab Simpson IG % 0.3 % Normal 0.0-0.5 [facility] Comment on above: Performed By: #### C BC #### [facility] [address] [place] [address] Dr. Zainab Simpson LYMPH # 2.0 103/ul Normal 1.2-3.8 [facility] Comment on above: Performed By: #### C BC #### [facility] [address] [place] [address] Dr. Zainab Simpson Lymphocytes/100 WBC (Bld) 23.1 % Normal 20.5-60.0 [facility] Comment on above: Performed By: #### C BC #### [facility] [address] [place] [address] Dr. Zainab Simpson MANUAL DIFF REQ NO Normal [facility] Comment on above: Performed By: #### C BC #### [facility] [address] [place] [address] Dr. Zainab Simpson MCH (RBC) [Entitic mass] 27.6 pg Normal 26.7-34.0 [facility] Comment on above: Performed By: #### C BC #### [facility] [address] [place] [address] Dr. Zainab Simpson MCHC (RBC) [Mass/Vol] 33.3 g/dL Normal 29.9-35.2 [facility] Comment on above: Performed By: #### C BC #### [facility] [address] [address] [address] Zainab Simpson MCV (RBC) [Entitic vol] 82.9 fL Normal 81.0-99.0 [facility] Comment on above: Performed By: #### C BC #### [facility] [address] [address] [address] Zainab Simpson MONO # 0.3 103/ul Normal 0.3-0.8 [facility] Comment on above: Performed By: #### C BC #### [facility] [address] [place] [address] Dr. Zainab Simpson Monocytes/100 WBC (Bld) 3.7 % Normal 1.7-12.0 [facility] Comment on above: Performed By: #### C BC #### [facility] [address] [place] [address] Dr. Zainab Simpson NEUT # 6.3 103/ul Normal 1.4-6.5 [facility] Comment on above: Performed By: #### C BC #### [facility] [address] [place] [address] Dr. Zainab Simpson Neutrophils/100 WBC (Bld) 70.8 % Normal 43.0-75.0 [facility] Comment on above: Performed By: #### C BC #### [facility] [address] [place] [address] Dr. Zainab Simpson Platelet mean volume (Bld) [Entitic vol] 10.3 fL Normal 9.5-13.5 [facility] Comment on above: Performed By: #### C BC #### [facility] [address] [place] [address] Dr. Zainab Simpson PLT 289 103/ul Normal 150-450 [facility] Comment on above: Performed By: #### C BC #### [facility] [address] [address] [address] Zainab Simpson RBC 4.97 106/ul Normal 4.20-5.40 [facility] Comment on above: Performed By: #### C BC #### [facility] [address] [place] [address] Dr. Zainab Simpson WBC 8.8 103/ul Normal 4.0-11.0 [facility] Comment on above: Performed By: #### C BC #### [facility] [address] [place] [address] Dr. Zainab Simpson FREE T4on 10-31-2022 Free T4 [Mass/Vol] 0.89 ng/dL Normal 0.76-1.46 [facility] Comment on above: Performed By: #### F T4 #### [facility] [address] [place] [address] Dr. Zainab Simpson PROF 14(COMP METB)on 022 Albumin [Mass/Vol] 3.2 g/dL Critically low 3.4-5.0 [facility] Comment on above: Performed By: #### T SH, CMP #### [facility] [address] [place] [address] Dr. Zainab Simpson Albumin/Globulin [Mass ratio] 0.7 {ratio} Normal [facility] Comment on above: Performed By: #### T SH, CMP #### [facility] [address] [place] [address] Dr. Zainab Simpson ALP [Catalytic activity/Vol] 64 U/L Normal 46-116 [facility] Comment on above: Performed By: #### T SH, CMP #### [facility] [address] [place] [address] Dr. Zainab Simpson ALT [Catalytic activity/Vol] 32 U/L Normal 14-59 [facility] Comment on above: Performed By: #### T SH, CMP #### [facility] [address] [place] [address] Dr. Zainab Simpson Anion gap [Moles/Vol] 11.0 mmol/L Normal [facility] Comment on above: Performed By: #### T SH, CMP #### [facility] [address] [place] [address] Dr. Zainab Simpson AST [Catalytic activity/Vol] 21 U/L Normal 15-37 [facility] Comment on above: Performed By: #### T SH, CMP #### [facility] [address] [address] [address] Zainab Simpson Bilirubin [Mass/Vol] 0.5 mg/dL Normal 0.2-1.0 [facility] Comment on above: Performed By: #### T SH, CMP #### [facility] [address] [place] [address] Dr. Zainab Simpson Calcium [Mass/Vol] 9.0 mg/dL Normal 8.5-10.1 [facility] Comment on above: Performed By: #### T SH, CMP #### [facility] [address] [address] [address] Zainab Simpson Chloride [Moles/Vol] 102 mmol/L Normal 98-107 [facility] Comment on above: Performed By: #### T SH, CMP #### [facility] [address] [place] [address] Dr. Zainab Simpson CO2 [Moles/Vol] 30.2 mmol/L Normal 21.0-32.0 [facility] Comment on above: Performed By: #### T SH, CMP #### [facility] [address] [place] [address] Dr. Zainab Simpson Creatinine [Mass/Vol] 0.62 mg/dL Normal 0.55-1.02 [facility] Comment on above: Performed By: #### T SH, CMP #### [facility] [address] [place] [address] Dr. Zainab Simpson EGFR-AF ESTONIAN >60 Normal >=60 [facility] Comment on above: Performed By: #### T SH, CMP #### [facility] [address] [place] [address] Dr. Zainab Simpson EGFR-NON AF ESTONIAN >60 Normal >=60 [facility] Comment on above: Performed By: #### T SH, CMP #### [facility] [address] [place] [address] Dr. Zainab Simpson Globulin (S) [Mass/Vol] 4.5 g/dL Normal [facility] Comment on above: Performed By: #### T SH, CMP #### [facility] [address] [address] [address] Zainab Simpson Glucose [Mass/Vol] 90 mg/dL Normal 74-106 [facility] Comment on above: Performed By: #### T SH, CMP #### [facility] [address] [address] [address] Zainab Simpson Potassium [Moles/Vol] 4.2 mmol/L Normal 3.5-5.1 [facility] Comment on above: Performed By: #### T SH, CMP #### [facility] [address] [address] [address] Zainab Simpson Protein [Mass/Vol] 7.7 g/dL Normal 6.4-8.2 [facility] Comment on above: Performed By: #### T SH, CMP #### [facility] [address] [place] [address] Dr. Zainab Simpson Sodium [Moles/Vol] 139 mmol/L Normal 136-145 [facility] Comment on above: Performed By: #### T SH, CMP #### [facility] [address] [place] [address] Dr. Zainab Simpson Urea nitrogen [Mass/Vol] 10.0 mg/dL Normal 7.0-18.0 [facility] Comment on above: Performed By: #### T SH, CMP #### [facility] [address] [place] [address] Dr. Zainab Simpson Urea nitrogen/Creatinine [Mass ratio] 16.1 mg/mg Normal [facility] Comment on above: Performed By: #### T SH, CMP #### [facility] [address] [address] [address] Zainab Simpson TSHon 10-31-2022 TSH 2.431 uIU/mL Normal 0.358-3.740 [facility] Comment on above: Performed By: #### T SH, CMP #### [facility] [address] [address] [address] Zainab Simpson MG MAMM SCREEN 3D VALERY CADon 01-24-2022 MG MAMM SCREEN 3D VALERY CAD Patient: JOSE RODRIGUEZ Exam Date: 01/24/2022 : 1980 Gender:F Ordering : KIRBY MOCTEZUMA CLIENT SERVICE CONSULTANT Admission #: [id number] Family : Order #: [id number] CLICK HERE TO VIEW EXAM RADIOLOGY REPORT PROCEDURE: MAMMOGRAM SCREENING 3D BILATERAL CAD COMPARISON: None. INDICATIONS: Screening mammography Calculator Name NCI Breast Cancer Risk Assessment Tool 5 Year Breast Cancer Risk 0.50% Lifetime Breast Cancer Risk 9.00% Personal Breast Cancer No Personal Ovarian Cancer No Treatments None Family Cancers Grandmother-paternal with lung cancer at age 66. LOCATION: [facility] BREAST COMPOSITION: Heterogeneously dense,which may obscure [...] White MD on 01/24/2022 at 10:42 Normal [facility] PAP ACOG PANEL 2: 30 to 65on 01-22-2022 . . Normal [facility] Comment on above: Result Comment: Perf ormed at: WB Performed By: #### [id number] #### [facility] [address] [address] [address] Zainab Simpson DIAGNOSIS: Comment Normal [facility] Comment on above: Result Comment: NEGA TIVE FOR INTRAEPITHELIAL LESION OR MALIGNANCY. Performed at: WB Performed By: #### [id number] #### [facility] [address] [address] [address] Zainab Simpson HPV Aptima Negative Normal Negative [facility] Comment on above: Result Comment: This nucleic acid amplification test detects fourteen high-risk HPV types (16,18,31,33,35,39,45,51,52,56,58,59,66,68) without differentiation. Performed at: =G Performed By: #### [id number] #### [facility] [address] [address] [address] Zainab Simpson Methodology: Comment Normal [facility] Comment on above: Result Comment: This liquid based ThinPrep(R) pap test was screened with the use of an image guided system. Performed at: WB Performed By: #### [id number] #### [facility] [address] [address] [address] Zainab Simpson Note: Comment Normal [facility] Comment on above: Result Comment: The Pap smear is a screening test designed to aid in the detection of premalignant and malignant conditions of the uterine cervix. It is not a diagnostic procedure and should not be used as the sole means of detecting cervical cancer. Both false-positive and false-negative reports do occur. . Performed at: WB Performed By: #### [id number] #### [facility] [address] [place] [address] Dr. Zainab Simpson Performed by: Comment Normal [facility] Comment on above: Result Comment: Loretta Oliveira, Webbing Supervisor (ASCP) Performed at: WB Performed By: #### [id number] #### [facility] [address] [address] [address] Zainab Simpson Specimen adequacy: Comment Normal [facility] Comment on above: Result Comment: Sati sfactory for evaluation. Endocervical and/or squamous metaplastic cells (endocervical component) are present. Performed at: WB Performed By: #### [id number] #### [facility] [address] [place] [address] Dr. Zainab Simpson Age Gdln ACOG Testing 30-65 [facility] Comment on above: Performed By: #### [id number] #### [facility] [address] [address] [address] Zainab Simpson VAGINITIS/VAGINOSIS DNA PROB Joe 01-20-2022 Mana species Negative Normal Negative [facility] Comment on above: Performed By: #### V AGINT ####[facility] [address] [address]. Zainab Simpson Gardnerella vaginalis Negative Normal Negative [facility] Comment on above: Performed By: #### V AGINT ####[facility] [address] [address]. Zainab Simpson Trichomonas vaginalis Negative Normal Negative [facility] Comment on above: Performed By: #### V AGINT ####[facility] [address] [id number]. Zainab Simpson CBC AUTO DIFFon 01-15-2022 BASO # 0.0 103/ul Normal 0.0-0.1 [facility] Comment on above: Performed By: #### C BC ####[facility] [address] [place], [place] [address]Dr. Avriladelina Simpson Basophils/100 WBC (Bld) 0.5 % Normal 0.2-2.0 [facility] Comment on above: Performed By: #### C BC ####[facility] [address] [place], [place] [address]Dr. Zainab Calvin EO # 0.2 103/ul Normal 0.0-0.7 [facility] Comment on above: Performed By: #### C BC ####[facility] [address] [place], [place] [address]Dr. Zainab Calvin Eosinophils/100 WBC (Bld) 1.8 % Normal 0.9-7.0 [facility] Comment on above: Performed By: #### C BC ####[facility] [address] [place], [place] [address]Dr. Zainab Simpson Erythrocyte distribution width (RBC) [Ratio] 12.8 % Normal 11.0-15.0 [facility] Comment on above: Performed By: #### C BC ####[facility] [address] [place], [place] [address]Dr. Avriladelina Simpson Hematocrit (Bld) [Volume fraction] 40.9 % Normal 36.0-48.0 [facility] Comment on above: Performed By: #### C BC ####[facility] [address] [place], [place] [address]Dr. Zainab Simpson Hemoglobin (Bld) [Mass/Vol] 13.4 g/dL Normal 12.0-16.0 [facility] Comment on above: Performed By: #### C BC ####[facility] [address] [address]DrYogi Simpson IG # 0.02 10e3/ul Normal 0.00-0.03 [facility] Comment on above: Performed By: #### C BC ####[facility] [address] [address]DrYogi Simpson IG % 0.2 % Normal 0.0-0.5 [facility] Comment on above: Performed By: #### C BC ####[facility] [address] [address]DrYogi Simpson LYMPH # 2.3 103/ul Normal 1.2-3.8 [facility] Comment on above: Performed By: #### C BC ####[facility] [address] [address]DrYogi Simpson Lymphocytes/100 WBC (Bld) 26.8 % Normal 20.5-60.0 [facility] Comment on above: Performed By: #### C BC ####[facility] [address] [address]DrYogi Simpson MANUAL DIFF REQ NO Normal [facility] Comment on above: Performed By: #### C BC ####[facility] [address] [id number]. Zainab Simpson MCH (RBC) [Entitic mass] 27.6 pg Normal 26.7-34.0 [facility] Comment on above: Performed By: #### C BC ####[facility] [address] [id number] Simpsno MCHC (RBC) [Mass/Vol] 32.8 g/dL Normal 29.9-35.2 [facility] Comment on above: Performed By: #### C BC ####[facility] [address] [id number] Simpson MCV (RBC) [Entitic vol] 84.3 fL Normal 81.0-99.0 [facility] Comment on above: Performed By: #### C BC ####[facility] [address] [address]Dr. Zainab Simpson MONO # 0.4 103/ul Normal 0.3-0.8 [facility] Comment on above: Performed By: #### C BC ####[facility] [address] [address]Dr. Zainab Simpson Monocytes/100 WBC (Bld) 4.9 % Normal 1.7-12.0 [facility] Comment on above: Performed By: #### C BC ####[facility] [address] [place], [place] [address]Dr. Zainab Simpson NEUT # 5.7 103/ul Normal 1.4-6.5 [facility] Comment on above: Performed By: #### C BC ####[facility] [address] [place], [place] [address]Dr. Zainab Simpson Neutrophils/100 WBC (Bld) 65.8 % Normal 43.0-75.0 [facility] Comment on above: Performed By: #### C BC ####[facility] [address] [place], [place] [address]Dr. Zainab Simpson Platelet mean volume (Bld) [Entitic vol] 10.1 fL Normal 9.5-13.5 [facility] Comment on above: Performed By: #### C BC ####[facility] [address] [place], [place] [address]Dr. Zainab Simpson PLT 265 103/ul Normal 150-450 [facility] Comment on above: Performed By: #### C BC ####[facility] [address] [place], [place] [address]Dr. Zainab Simpson RBC 4.85 106/ul Normal 4.20-5.40 [facility] Comment on above: Performed By: #### C BC ####[facility] [address] [address]Dr. Zainab Simpson WBC 8.7 103/ul Normal 4.0-11.0 [facility] Comment on above: Performed By: #### C BC ####[facility] [address] [address]Dr. Zainab Simpson GLYCOHEMOGLOBIN A1Con 2021 ADA RECOMMENDATION ADA THERAPEUTIC TARGET 6.0 - 7.0 ACTION SUGGESTED > 7.0 Normal [facility] Comment on above: Performed By: #### A 1C #### [facility] [address] [address] [address] Zainab Simpson Glucose [Mass/Vol] 111 mg/dL Normal [facility] Comment on above: Performed By: #### A 1C #### [facility] [address] [address] [address] Zainab Simpson HbA1c (Bld) [Mass fraction] 5.5 % Normal <=6.0 [facility] Comment on above: Performed By: #### A 1C #### [facility] [address] [address] [address] Zainab Simpson LIPID PROFILEon 01-15-2022 CHOL-HDL RATIO NORM SEE BELOW Normal [facility] Comment on above: Result Comment: 3.3 - 4.4 LOW RISK 4.4 - 7.1 AVERAGE RISK 7.1 - 11.0 MODERATE RISK >11.0 HIGH RISK Performed By: #### T ERWIN, LIPID, CMP #### [facility] [address] [address] [address] Zainab Simpson Cholesterol [Mass/Vol] 194 mg/dL Normal <=200 [facility] Comment on above: Performed By: #### T ERWIN, LIPID, CMP #### [facility] [address] [address] [address] Zainab Simpson Cholesterol in HDL [Mass/Vol] 50 mg/dL Normal [facility] Comment on above: Performed By: #### T ERWIN, LIPID, CMP #### [facility] [address] [address] [address] Zainab Simpson Cholesterol in LDL [Mass/Vol] 108.8 mg/dL Normal [facility] Comment on above: Performed By: #### T SH, LIPID, CMP #### [facility] [address] [address] [address] Zainab Simpson Cholesterol.total/Cho lesterol in HDL [Mass ratio] 3.9 {ratio} Normal [facility] Comment on above: Performed By: #### T ERWIN, LIPID, CMP #### [facility] [address] [place] [address] Dr. Zainab Simpson HDL NORMAL > or = 60 mg/dl - LO W CARDIOVASCULAR RISK <40 mg/dl - HIGH CARDIOVASCULAR RISK Normal [facility] Comment on above: Performed By: #### T ERWIN, LIPID, CMP #### [facility] [address] [address] [address] Zainab Simpson LDL CALC NORMAL SEE BELOW Normal [facility] Comment on above: Result Comment: <100 mg/dl OPTIMAL 100 - 129 mg/dl NEAR OR ABOVE OPTIMAL 130 - 159 mg/dl BORDERLINE HIGH 160 - 189 mg/dl HIGH >190 mg/dl VERY HIGH Performed By: #### T ERWIN, LIPID, CMP #### [facility] [address] [address] [address] Zainab Simpson Triglyceride [Mass/Vol] 176 mg/dL Critically high <=150 [facility] Comment on above: Performed By: #### T ERWIN, LIPID, CMP #### [facility] [address] [address] [address] Zainab Simpson VLDL CALC 35.2 mg/dL Normal [facility] Comment on above: Performed By: #### T ERWIN, LIPID, CMP #### [facility] [address] [place] [address] Dr. Zainab Simpson PROF 14(COMP METB)on 022 Albumin [Mass/Vol] 3.2 g/dL Critically low 3.5-5.0 [facility] Comment on above: Performed By: #### T ERWIN, LIPID, CMP ####[facility] [address] [address]Dr. Zainab Simpson Albumin/Globulin [Mass ratio] 0.7 {ratio} Normal [facility] Comment on above: Performed By: #### T ERWIN, LIPID, CMP ####[facility] [address] [address]Dr. Zainab Simpson ALP [Catalytic activity/Vol] 70 U/L Normal 38-126 [facility] Comment on above: Performed By: #### T ERWIN LIPID, CMP ####[facility] [address] [address]Dr. Zainab Simpson ALT [Catalytic activity/Vol] 28 U/L Normal 9-52 [facility] Comment on above: Performed By: #### T ERWIN LIPID, CMP ####[facility] [address] [address]Dr. Zainab Simpson Anion gap [Moles/Vol] 7.7 mmol/L Normal [facility] Comment on above: Performed By: #### T ERWIN LIPID, CMP ####[facility] [address] [place], [place] [address]Dr. Zainab Simpson AST [Catalytic activity/Vol] 14 U/L Normal 14-36 [facility] Comment on above: Performed By: #### T ERWIN LIPID, CMP ####[facility] [address] [place], [place] [address]Dr. Zainab Simpson Bilirubin [Mass/Vol] 0.4 mg/dL Normal 0.2-1.3 [facility] Comment on above: Performed By: #### T ERWIN LIPID, CMP ####[facility] [address] [place], [place] [address]Dr. Zainab Simpson Calcium [Mass/Vol] 9.1 mg/dL Normal 8.4-10.2 [facility] Comment on above: Performed By: #### T ERWIN LIPID, CMP ####[facility] [address] [place], [place] [address]Dr. Zainab Simpson Chloride [Moles/Vol] 105 mmol/L Normal 98-107 [facility] Comment on above: Performed By: #### T ERWIN LIPID, CMP ####[facility] [address] [address]Dr. Zainab Simpson CO2 [Moles/Vol] 31.0 mmol/L Critically high 22.0-30.0 [facility] Comment on above: Performed By: #### T ERWIN LIPID, CMP ####[facility] [address] [address]Dr. Zainab Simpson Creatinine [Mass/Vol] 0.63 mg/dL Normal 0.52-1.04 [facility] Comment on above: Performed By: #### T SH, LIPID, CMP ####[facility] [address] [address]Dr. Zainab Simpson EGFR-AF ESTONIAN >60 Normal >=60 [facility] Comment on above: Performed By: #### T SH, LIPID, CMP ####[facility] [address] [address]Dr. Zainab Simpson EGFR-NON AF ESTONIAN >60 Normal >=60 [facility] Comment on above: Performed By: #### T SH, LIPID, CMP ####[facility] [address] [place], [place] [address]Dr. Zainab Simpson Globulin (S) [Mass/Vol] 4.3 g/dL Normal [facility] Comment on above: Performed By: #### T SH, LIPID, CMP ####[facility] [address] [place], [place] [address]Dr. Zainab Simpson Glucose [Mass/Vol] 92 mg/dL Normal 74-106 [facility] Comment on above: Performed By: #### T SH, LIPID, CMP ####[facility] [address] [place], [place] [address]Dr. Zainab Simpson Potassium [Moles/Vol] 3.7 mmol/L Normal 3.4-5.0 [facility] Comment on above: Performed By: #### T SH, LIPID, CMP ####[facility] [address] [place], [place] [address]Dr. Zainab Simpson Protein [Mass/Vol] 7.5 g/dL Normal 6.1-8.2 The [facility] Comment on above: Performed By: #### T SH, LIPID, CMP ####[facility] [address] [place], [place] [address]Dr. Zainab Simpson Sodium [Moles/Vol] 140 mmol/L Normal 137-145 The [facility] Comment on above: Performed By: #### T SH, LIPID, CMP ####[facility] [address] [id number] Simpson Urea nitrogen [Mass/Vol] 9.0 mg/dL Normal 7.0-17.0 [facility] Comment on above: Performed By: #### T SH, LIPID, CMP ####[facility] [address] [id number] Simpson Urea nitrogen/Creatinine [Mass ratio] 14.3 mg/mg Normal [facility] Comment on above: Performed By: #### T SH, LIPID, CMP ####[facility] [address] [address]DrYogi Simpson TSHon 01-15-2022 TSH 4.291 uIU/mL Normal 0.470-4.680 [facility] Comment on above: Performed By: #### T SH, LIPID, CMP #### [facility] [address] [place] [address] Dr. Zainab Simpson TSH RANGE SEE BELOW Normal [facility] Comment on above: Result Comment: <0.3 4 UIU/ml HYPERTHYROID 0.34-5.60 UIU/ml EUTHYROID >5.60 UIU/ml HYPOTHYROID Performed By: #### T SH, LIPID, CMP #### [facility] [address] [place] [address] Dr. Zainab Simpson UA RANDOM W/MICROSCOPICon BACTERIA TRACE Abnormal NONE SEEN [facility] Comment on above: Performed By: #### U AMIC #### [facility] [address] [place] [address] Dr. Zainab Simpson Bilirubin Ql (U) Negative Normal NEGATIVE [facility] Comment on above: Performed By: #### U AMIC #### [facility] [address] [place] [address] Dr. Zainab Simpson CAST NONE SEEN Normal NONE SEEN [facility] Comment on above: Performed By: #### U AMIC #### [facility] [address] [place] [address] Dr. Zainab Simpson Clarity (U) CLEAR Normal CLEAR [facility] Comment on above: Performed By: #### U AMIC #### [facility] [address] [address] [address] Zainab Simpson Color (U) LT. YELLOW Normal YELLOW [facility] Comment on above: Performed By: #### U AMIC #### [facility] [address] [address] [address] Zainab Simpson Crystals LM Nom (Urine sed) NONE SEEN Normal NONE SEEN [facility] Comment on above: Performed By: #### U AMIC #### [facility] [address] [address] [address] Zainab Simpson Epithelial cells LM Ql (Urine sed) FEW Abnormal NONE SEEN /RARE [facility] Comment on above: Performed By: #### U AMIC #### [facility] [address] [place] [address] Dr. Zainab Smipson Glucose Ql (U) Negative Normal NEGATIVE [facility] Comment on above: Performed By: #### U AMIC #### [facility] [address] [address] [address] Zainab Simpson Hemoglobin Ql (U) Negative Normal NEGATIVE [facility] Comment on above: Performed By: #### U AMIC #### [facility] [address] [place] [address] Dr. Zainab Simpson Ketones Ql (U) Negative Normal NEGATIVE [facility] Comment on above: Performed By: #### U AMIC #### [facility] [address] [address] [address] Zainab Simpson LEUKOCYTES Negative Normal NEGATIVE [facility] Comment on above: Performed By: #### U AMIC #### [facility] [address] [address] [address] Zainab Simpson MUCOUS NONE SEEN Normal NONE SEEN [facility] Comment on above: Performed By: #### U AMIC #### [facility] [address] [place] [address] Dr. Zainab Simpson Nitrite Ql (U) Negative Normal NEGATIVE [facility] Comment on above: Performed By: #### U AMIC #### [facility] [address] [address] [address] Zainab Simpson pH (U) 6.0 [pH] Normal 5-9 [facility] Comment on above: Performed By: #### U AMIC #### [facility] [address] [address] [address] Zainab Simpson RBC NONE SEEN Abnormal 0-2 [facility] Comment on above: Performed By: #### U AMIC #### [facility] [address] [address] [address] Zainab Simpson SPEC GRAVITY 1.025 Normal 1.005-<=1.025 The [facility] Comment on above: Performed By: #### U AMIC #### [facility] [address] [place] [address] Dr. Zainab Simpson UA PROTEIN Negative Normal NEGATIVE/ TRACE [facility] Comment on above: Performed By: #### U AMIC #### [facility] [address] [address] [address] Zainab Simpson Urobilinogen Qn (U) 0.2 {Robyn'U}/dL Normal 0.2 - 1. 0 [facility] Comment on above: Performed By: #### U AMIC #### [facility] [address] [place] [address] Dr. Zainab Simpson WBC 0-2 Abnormal NONE SEEN [facility] Comment on above: Performed By: #### U AMIC #### [facility] [address] [address] [address] Zainab Simpson Encounters Encounter Date Encounter Type Care Provider Facility Start: 07-29-2024 End: 07-29-2024 ambulatory JOELLEN LESLI Not Available Start: 06-10-2024 End: 06-10-2024 ambulatory TRIP AICHHOLZ Not Available Start: 10-31-2022 End: 11-01-2022 ambulatory CLIENT SERVICE CONSULTANT TRIP AICHMARCUSZ Facility:[facility] Start: 01-24-2022 End: 01-25-2022 ambulatory CLIENT SERVICE CONSULTANT TRIP AICHMARCUSZ Facility:[facility] Start: 01-18-2022 End: 01-18-2022 ambulatory CLIENT SERVICE CONSULTANT TRIP AICHHOLZ Facility:[facility] Start: 01-15-2022 End: 01-16-2022 ambulatory KIRBY MOCTEZUMA Facility:[facility] Payers Date Payer Category Payer Unknown [id number] 2.16.84 [id number] 1980 Unknown [id number] 2.16.84 [id number] 1981 Unknown [id number] 2.16.84 [id number] 1981 Unknown [id number] 2.16.84 [id number] 1981 Unknown [id number] 2.16.84 [id number] 1981 Unknown [id number] 2.16.84 [id number] 1959 Unknown [id number] Medicaid [id number] Summary Purpose Family History No Family History Records FoundNo Family History Records Found Advance Directives No Advanced Directives Records FoundNo Advanced Directives Records Found Additional Source Comments INFORMATION SOURCE (unrecogn ized section and content) DATE CREATED AUTHOR 01/11/2023 [facility] DATE CREATED AUTHOR AUTHORChristian WREN 07/29/2024 [facility] EPIC FOR RECORDS PERTAINING TO PATIENTS [...] BE BASED ON THE PRIMARY CLINICAL RECORDS. [facility] [employer] [facility]. provides no warranty or guarantee of the accuracy or completeness of information in this document.
== END 2024-08-30 10:23 | disposition home or self-care (01) ==
LOC: US 10:22
PROVIDERS: PCP Nurse Practitioner; Visit Provider Obstetrics & Gynecology
DX: R10.30 Lower abdominal pain, unspecified (principal); T83.89XA Other specified complication of genitourinary prosthetic devices, implants and grafts, initial encounter; N92.0 Excessive and frequent menstruation with regular cycle
CPT/HCPCS: 76830; 76856

== ENCOUNTER 2024-09-02 13:12 | Outpatient (REF) | payer MEDICAID, SELFPAY ==
--- OUTSIDE RECORDS SUMMARY | 2024-09-06 13:18 | XMS_ITS | CCD ---
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 Name Role Phone AICHHOLZ, HAND BENDER TRIP Consulting Unavailable AICHHOLZ, HAND BENDER TRIP Primary Care Unavailable AICHHOLZ, HAND BENDER TRIP Admitting Unavailable AICHHOLZ, HAND BENDER TRIP Attending Unavailable AICHHOLZ, HAND BENDER TRIP Consulting Unavailable AICHHOLZ, HAND BENDER TRIP Primary Care Unavailable AICHHOLZ, HAND BENDER TRIP Admitting Unavailable AICHHOLZ, HAND BENDER TRIP Attending Unavailable AICHHOLZ, HAND BENDER TRIP Consulting Unavailable AICHHOLZ, HAND BENDER TRIP Primary Care Unavailable AICHHOLZ, HAND BENDER TRIP Admitting Unavailable AICHHOLZ, HAND BENDER TRIP Attending Unavailable AICHHOLZ, HAND BENDER TRIP Primary Care Unavailable DR JINNY WHITE V Consulting Unavailable AICHHOLZ, HAND BENDER TRIP Admitting Unavailable AICHHOLZ, HAND BENDER TRIP Attending Unavailable AICHHOLZ, HAND BENDER TRIP Consulting Unavailable AICHHOLZ, TRIP Attending Unavailable FLAKOJOELLEN TABARES Attending Unavailable AICHHOLZ, TRIP Referring Unavailable JOELLEN ARRIOLA Attending Unavailable Brad Lala MD Primary Care Provider Joellen Arriola Attending Unavailable Joellen Arriola Admitting Unavailable DO Joellen Arriola Attending Provider Allergies Allergy Classification Reported Allergen(s) Allergy Type Date of Onset Reaction(s) Facility (1 source) Wound Dressing Adhesive Propensity to adverse reactions to drug 4 Rash [facility] Medications Current Medications Medication Drug Class(es) Dates Sig (Normalized) Sig (Original) atorvastatin 10 mg oral tablet (1 source) HMG-CoA Reductase Inhibitor Start: 08-13-2024 End: 09-12-2024 take 1 tablet by mouth at bedtime atorvastatin (Lipitor) 10 MG tablet Indications: Mixed hyperlipidemia (CMS/HCC) Take 1 tablet (10 mg) by mouth at bedtime 30 tablet 1 08/13/2024 09/12/2024 Active chlorhexidine gluconate 40 mg/ml medicated liquid soap (1 source) Start: 06-10-2024 Chlorhexidine Gluconate (Hibiclens) 4 % solution Indications: Folliculitis Apply to torso and breast area leave on for 5 minutes and then wash off. Do this daily for 5 doses. Avoid use on face 118 mL 06/10/2024 Active Problems Active Problems Problem Classification Problem Date Documented Date Episodic/Chronic Abdominal pain (2 sources) Pain in female pelvis; Translations: [Pelvic and perineal pain] Onset: 07-29-2024 09-02-2024 Episodic Anxiety disorders (1 source) Mixed anxiety and depressive disorder; Translations: [Other specified anxiety disorders] Onset: 06-10-2024 06-10-2024 Chronic Conditions associated with dizziness or vertigo (4 sources) Dizziness and giddiness; Translations: [DIZZINESS AND GIDDINESS] Onset: 10-31-2022 Episodic Contraceptive and procreative management (1 source) Sterilization requested; Translations: [Encounter for sterilization] 09-02-2024 Episodic Disorders of lipid metabolism (5 sources) Hyperlipidemia, unspecified; Translations: [Mixed hyperlipidemia] Onset: 01-15-2022 Chronic Inflammatory diseases of female pelvic organs (1 source) Bacterial vaginosis; Translations: [Acute vaginitis] Onset: 06-12-2024 06-12-2024 Episodic Menstrual disorders (4 sources) Menorrhagia; Translations: [Excessive and frequent menstruation with regular cycle] Onset: 06-10-2024 09-02-2024 Chronic Mood disorders (1 source) Mood disorders; Translations: [DEPRESSION UNSPECIFIED] Onset: 01-19-2022 Other female genital disorders (1 source) Abnormal uterine bleeding; Translations: [Abnormal uterine and vaginal bleeding, unspecified] 09-02-2024 Chronic Other female genital disorders (1 source) Vaginal discharge; Translations: [Other specified noninflammatory disorders of vagina] Onset: 06-10-2024 06-10-2024 Episodic Other nutritional; endocrine; and metabolic disorders (1 source) Morbid (severe) obesity due to excess calories; Translations: [MORBID SEVERE OBES D/T EXCESS WILMA] Onset: 01-19-2022 Chronic Other nutritional; endocrine; and metabolic disorders (1 source) Body mass index (BMI) 40.0-44.9, adult; Translations: [BODY MASS INDEX BMI 40.0-44.9 ADULT] Onset: 01-19-2022 Chronic Other nutritional; endocrine; and metabolic disorders (1 source) Morbid obesity; Translations: [Morbid (severe) obesity due to excess calories] Onset: 06-10-2024 06-10-2024 Chronic Other screening for suspected conditions (not mental disorders or infectious disease) (9 sources) Encounter for screening mammogram for malignant neoplasm of breast; Translations: [Encounter for screening for malignant neoplasm of cervix] Onset: 01-18-2022 Episodic Other skin disorders (1 source) Folliculitis; Translations: [Follicular disorder, unspecified] Onset: 06-10-2024 06-10-2024 Episodic Residual codes; unclassified (1 source) Patient participation status; Translations: [Other specified health status] Onset: 06-10-2024 06-10-2024 Episodic Spondylosis; intervertebral disc disorders; other back problems (1 source) Low back pain; Translations: [Lumbar back pain] Onset: 06-10-2024 06-10-2024 Episodic Past or Other Problems Problem Classification Problem Date Documented Da te Episodic/Chronic Genitourinary symptoms and ill-defined conditions (1 source) Asymptomatic microscopic hematuria; Translations: [ASYMPTOMATIC MICROSCOPIC HEMATURIA] Onset: 01-19-2022 Episodic Residual codes; unclassified (1 source) Family history of malignant neoplasm of trachea, bronchus and lung; Translations: [FAM HX MALIG NEOPLSM TRACH BRON LNG] Onset: 01-26-2022 Episodic Results Test Name Value Interpretation Reference Range Facility HCG ( test) Ql (U)o n 09-02-2024 Interpretation and review of laboratory results Normal [facility] Preg Test, Ur Negative [facility] Healthcare [facility] CBC AUTO DIFFon 10-31-2022 BASO # 0.0 103/ul Normal 0.0-0.1 [facility] Comment on above: Performed By: #### C BC #### [facility] [address] [address] [address] Zainab Simpson Basophils/100 WBC (Bld) 0.5 % Normal 0.2-2.0 [facility] Comment on above: Performed By: #### C BC #### [facility] [address] [place] [address] Dr. Zainab Simpson EO # 0.1 103/ul Normal 0.0-0.7 [facility] Comment on above: Performed By: #### C BC #### [facility] [address] [place] [address] Dr. Zainab Simpson Eosinophils/100 WBC (Bld) 1.6 % Normal 0.9-7.0 [facility] Comment on above: Performed By: #### C BC #### [facility] [address] [place] [address] Dr. Zainab Simpson Erythrocyte distribution width (RBC) [Ratio] 12.2 % Normal 11.0-15.0 [facility] Comment on above: Performed By: #### C BC #### [facility] [address] [place] [address] Dr. Zainab Simpson Hematocrit (Bld) [Volume fraction] 41.2 % Normal 36.0-48.0 [facility] Comment on above: Performed By: #### C BC #### [facility] [address] [place] [address] Dr. Zainab Simpson Hemoglobin (Bld) [Mass/Vol] 13.7 g/dL Normal 12.0-16.0 [facility] Comment on above: Performed By: #### C BC #### [facility] [address] [place] [address] Dr. Zainab Simpson IG # 0.03 10e3/ul Normal 0.00-0.03 [facility] Comment on above: Performed By: #### C BC #### [facility] [address] [place] [address] Dr. Zainab Simpson IG % 0.3 % Normal 0.0-0.5 [facility] Comment on above: Performed By: #### C BC #### [facility] [address] [place] [address] Dr. Zainab Simpson LYMPH # 2.0 103/ul Normal 1.2-3.8 [facility] Comment on above: Performed By: #### C BC #### [facility] [address] [place] [address] Dr. Zainab Simpson Lymphocytes/100 WBC (Bld) 23.1 % Normal 20.5-60.0 [facility] Comment on above: Performed By: #### C BC #### [facility] [address] [place] [address] Dr. Zainab Simpson MANUAL DIFF REQ NO Normal [facility] Comment on above: Performed By: #### C BC #### [facility] [address] [place] [address] Dr. Zainab Simpson MCH (RBC) [Entitic mass] 27.6 pg Normal 26.7-34.0 [facility] Comment on above: Performed By: #### C BC #### [facility] [address] [place] [address] Dr. Zainab Simpson MCHC (RBC) [Mass/Vol] 33.3 g/dL Normal 29.9-35.2 [facility] Comment on above: Performed By: #### C BC #### [facility] [address] [place] [address] Dr. Zainab Simpson MCV (RBC) [Entitic vol] 82.9 fL Normal 81.0-99.0 [facility] Comment on above: Performed By: #### C BC #### [facility] [address] [place] [address] Dr. Zainab Simpson MONO # 0.3 103/ul Normal 0.3-0.8 [facility] Comment on above: Performed By: #### C BC #### [facility] [address] [place] [address] Dr. Zainab Simpson Monocytes/100 WBC (Bld) 3.7 % Normal 1.7-12.0 [facility] Comment on above: Performed By: #### C BC #### [facility] [address] [place] [address] Dr. Zainab Simpson NEUT # 6.3 103/ul Normal 1.4-6.5 [facility] Comment on above: Performed By: #### C BC #### [facility] [address] [place] [address] Dr. Zainab Simpson Neutrophils/100 WBC (Bld) 70.8 % Normal 43.0-75.0 [facility] Comment on above: Performed By: #### C BC #### [facility] [address] [place] [address] Dr. Zainab Simposn Platelet mean volume (Bld) [Entitic vol] 10.3 fL Normal 9.5-13.5 [facility] Comment on above: Performed By: #### C BC #### [facility] [address] [place] [address] Dr. Zainab Simpson PLT 289 103/ul Normal 150-450 [facility] Comment on above: Performed By: #### C BC #### [facility] [address] [place] [address] Dr. Zainab Simpson RBC 4.97 106/ul Normal 4.20-5.40 [facility] Comment on above: Performed By: #### C BC #### [facility] [address] [place] [address] Dr. Zainab Simpson WBC 8.8 103/ul Normal 4.0-11.0 [facility] Comment on above: Performed By: #### C BC #### [facility] [address] [place] [address] Dr. Zainab Simpson FREE T4on 10-31-2022 Free T4 [Mass/Vol] 0.89 ng/dL Normal 0.76-1.46 [facility] Comment on above: Performed By: #### F T4 #### [facility] [address] [place] [address] Dr. Zainab Simpson PROF 14(COMP METB)on 022 Albumin [Mass/Vol] 3.2 g/dL Critically low 3.4-5.0 [facility] Comment on above: Performed By: #### T ERWIN CMP #### [facility] [address] [place] [address] Dr. Zainab Simpson Albumin/Globulin [Mass ratio] 0.7 {ratio} Normal [facility] Comment on above: Performed By: #### T ANU HOOD #### [facility] [address] [address] [address] Zainab Simpson ALP [Catalytic activity/Vol] 64 U/L Normal 46-116 [facility] Comment on above: Performed By: #### T SH, CMP #### [facility] [address] [address] [address] Zainab Simpson ALT [Catalytic activity/Vol] 32 U/L Normal 14-59 [facility] Comment on above: Performed By: #### T SH, CMP #### [facility] [address] [address] [address] Zainab Simpson Anion gap [Moles/Vol] 11.0 mmol/L Normal [facility] Comment on above: Performed By: #### T SH, CMP #### [facility] [address] [place] [address] Dr. Zainab Simpson AST [Catalytic activity/Vol] 21 U/L Normal 15-37 [facility] Comment on above: Performed By: #### T SH, CMP #### [facility] [address] [address] [address] Zainab Simpson Bilirubin [Mass/Vol] 0.5 mg/dL Normal 0.2-1.0 [facility] Comment on above: Performed By: #### T SH, CMP #### [facility] [address] [place] [address] Dr. Zainab Simpson Calcium [Mass/Vol] 9.0 mg/dL Normal 8.5-10.1 [facility] Comment on above: Performed By: #### T SH, CMP #### [facility] [address] [address] [address] Zainab Simpson Chloride [Moles/Vol] 102 mmol/L Normal 98-107 [facility] Comment on above: Performed By: #### T SH, CMP #### [facility] [address] [address] [address] Zainab Simpson CO2 [Moles/Vol] 30.2 mmol/L Normal 21.0-32.0 [facility] Comment on above: Performed By: #### T SH, CMP #### [facility] [address] [place] [address] Dr. Zainab Simpson Creatinine [Mass/Vol] 0.62 mg/dL Normal 0.55-1.02 [facility] Comment on above: Performed By: #### T SH, CMP #### [facility] [address] [place] [address] Dr. Zainab Simpson EGFR-AF ISRAELI >60 Normal >=60 [facility] Comment on above: Performed By: #### T SH, CMP #### [facility] [address] [place] [address] Dr. Zainab Simpson EGFR-NON AF ISRAELI >60 Normal >=60 [facility] Comment on above: Performed By: #### T SH, CMP #### [facility] [address] [place] [address] Dr. Zainab Simpson Globulin (S) [Mass/Vol] 4.5 g/dL Normal [facility] Comment on above: Performed By: #### T SH, CMP #### [facility] [address] [place] [address] Dr. Zainab Simpson Glucose [Mass/Vol] 90 mg/dL Normal 74-106 [facility] Comment on above: Performed By: #### T SH, CMP #### [facility] [address] [place] [address] Dr. Zainab Simpson Potassium [Moles/Vol] 4.2 mmol/L Normal 3.5-5.1 [facility] Comment on above: Performed By: #### T SH, CMP #### [facility] [address] [place] [address] Dr. Zainab Simpson Protein [Mass/Vol] 7.7 g/dL Normal 6.4-8.2 [facility] Comment on above: Performed By: #### T SH, CMP #### [facility] [address] [place] [address] Dr. Zainab Simpson Sodium [Moles/Vol] 139 mmol/L Normal 136-145 [facility] Comment on above: Performed By: #### T SH, CMP #### [facility] [address] [address] [address] Zainab Simpson Urea nitrogen [Mass/Vol] 10.0 mg/dL Normal 7.0-18.0 [facility] Comment on above: Performed By: #### T SH, CMP #### [facility] [address] [address] [address] Zainab Simpson Urea nitrogen/Creatinine [Mass ratio] 16.1 mg/mg Normal [facility] Comment on above: Performed By: #### T SH, CMP #### [facility] [address] [address] [address] Zainab Simpson TSHon 10-31-2022 TSH 2.431 uIU/mL Normal 0.358-3.740 [facility] Comment on above: Performed By: #### T SH, CMP #### [facility] [address] [address] [address] Zainab Simpson MG MAMM SCREEN 3D VALERY CADon 01-24-2022 MG MAMM SCREEN 3D VALERY CAD Patient: JOSE MARADIAGA Exam Date: 01/24/2022 : 1980 Gender:F Ordering : KIRBY TRIP [facility]EZESDRAS [facility] Admission #: [id number] Family : Order #: [id number] CLICK HERE TO VIEW EXAM RADIOLOGY REPORT PROCEDURE: MAMMOGRAM SCREENING 3D BILATERAL CAD COMPARISON: None. INDICATIONS: Screening mammography Calculator Name NCI Breast Cancer Risk Assessment Tool 5 Year Breast Cancer Risk 0.50% Lifetime Breast Cancer Risk 9.00% Personal Breast Cancer No Personal Ovarian Cancer No Treatments None Family Cancers Grandmother-paternal with lung cancer at age 66. LOCATION: [facility] BREAST COMPOSITION: Heterogeneously dense,which may obscure small [...] White MD on 01/24/2022 at 10:42 Normal [facility] PAP ACOG PANEL 2: 30 to 65on 01-22-2022 . . Normal [facility] Comment on above: Result Comment: Perf ormed at: WB Performed By: #### [id number] #### [facility] [address] [address] [address] Zainab Simpson DIAGNOSIS: Comment Normal [facility] Comment on above: Result Comment: NEGA TIVE FOR INTRAEPITHELIAL LESION OR MALIGNANCY. Performed at: WB Performed By: #### [id number] #### [facility] [address] [address] [address] Zainab Simpson HPV Aptima Negative Normal Negative [facility] Comment on above: Result Comment: This nucleic acid amplification test detects fourteen high-risk HPV types (16,18,31,33,35,39,45,51,52,56,58,59,66,68) without differentiation. Performed at: =G Performed By: #### [id number] #### [facility] [address] [address] [address] Zainab Simpson Methodology: Comment Normal [facility] Comment on above: Result Comment: This liquid based ThinPrep(R) pap test was screened with the use of an image guided system. Performed at: WB Performed By: #### [id number] #### [facility] [address] [place] [address] Dr. Zainab Simpson Note: Comment Normal [facility] Comment on above: Result Comment: The Pap smear is a screening test designed to aid in the detection of premalignant and malignant conditions of the uterine cervix. It is not a diagnostic procedure and should not be used as the sole means of detecting cervical cancer. Both false-positive and false-negative reports do occur. . Performed at: WB Performed By: #### [id number] #### [facility] [address] [place] [address] Dr. Zainab Simpson Performed by: Comment Normal [facility] Comment on above: Result Comment: Loretta Oliveira, Waterproofing Mixer (ASCP) Performed at: WB Performed By: #### [id number] #### [facility] [address] [address] [address] Zainab Simpson Specimen adequacy: Comment Normal [facility] Comment on above: Result Comment: Sati sfactory for evaluation. Endocervical and/or squamous metaplastic cells (endocervical component) are present. Performed at: WB Performed By: #### 4 [id number] #### [facility] [address] [address] [address] Zainab Simpson Age Gdln ACOG Testing 30-65 Normal [facility] Comment on above: Performed By: #### 4 [id number] #### [facility] [address] [address] [address] Zainab Simpson VAGINITIS/VAGINOSIS DNA PROB Joe 01-20-2022 Mana species Negative Normal Negative [facility] Comment on above: Performed By: #### V AGINT ####[facility] [address] [place], [place] [address]Dr. Zainab Simpson Gardnerella vaginalis Negative Normal Negative [facility] Comment on above: Performed By: #### V AGINT ####[facility] [address] [place], [place] [address]Dr. Zainab Simpson Trichomonas vaginalis Negative Normal Negative [facility] Comment on above: Performed By: #### V AGINT ####[facility] [address] [address]Dr. Zainab Simpson CBC AUTO DIFFon 01-15-2022 BASO # 0.0 103/ul Normal 0.0-0.1 [facility] Comment on above: Performed By: #### C BC ####[facility] [address] [address]Dr. Zainab Simpson Basophils/100 WBC (Bld) 0.5 % Normal 0.2-2.0 [facility] Comment on above: Performed By: #### C BC ####[facility] [address] [address]Dr. Zainab Simpson EO # 0.2 103/ul Normal 0.0-0.7 [facility] Comment on above: Performed By: #### C BC ####[facility] [address] [id number]. Zainab Simpson Eosinophils/100 WBC (Bld) 1.8 % Normal 0.9-7.0 [facility] Comment on above: Performed By: #### C BC ####[facility] [address] [address]Dr. Zainab Simpson Erythrocyte distribution width (RBC) [Ratio] 12.8 % Normal 11.0-15.0 [facility] Comment on above: Performed By: #### C BC ####[facility] [address] [place], [place] [address]Dr. Zainab Simpson Hematocrit (Bld) [Volume fraction] 40.9 % Normal 36.0-48.0 [facility] Comment on above: Performed By: #### C BC ####[facility] [address] [place], [place] [address]Dr. Zainab Simpson Hemoglobin (Bld) [Mass/Vol] 13.4 g/dL Normal 12.0-16.0 [facility] Comment on above: Performed By: #### C BC ####[facility] [address] [place], [place] [address]Dr. Zainab Simpson IG # 0.02 10e3/ul Normal 0.00-0.03 [facility] Comment on above: Performed By: #### C BC ####[facility] [address] [place], [place] [address]Dr. Zainab Simpson IG % 0.2 % Normal 0.0-0.5 [facility] Comment on above: Performed By: #### C BC ####[facility] [address] [place], [place] [address]Dr. Zainab Simpson LYMPH # 2.3 103/ul Normal 1.2-3.8 [facility] Comment on above: Performed By: #### C BC ####[facility] [address] [place], [place] [address]Dr. Zainab Simpson Lymphocytes/100 WBC (Bld) 26.8 % Normal 20.5-60.0 [facility] Comment on above: Performed By: #### C BC ####[facility] [address] [id number]. Zainab Simpson MANUAL DIFF REQ NO Normal [facility] Comment on above: Performed By: #### C BC ####[facility] [address] [id number]. Zainab Simpson MCH (RBC) [Entitic mass] 27.6 pg Normal 26.7-34.0 [facility] Comment on above: Performed By: #### C BC ####[facility] [address] [place], [place] [address]Dr. Zainab Simpson MCHC (RBC) [Mass/Vol] 32.8 g/dL Normal 29.9-35.2 [facility] Comment on above: Performed By: #### C BC ####[facility] [address] [place], [place] [address]Dr. Zainab Calvin MCV (RBC) [Entitic vol] 84.3 fL Normal 81.0-99.0 [facility] Comment on above: Performed By: #### C BC ####[facility] [address] [place], [place] [address]Dr. Zainab Simpson MONO # 0.4 103/ul Normal 0.3-0.8 [facility] Comment on above: Performed By: #### C BC ####[facility] [address] [place], [place] [address]Dr. Avriladelina Simpson Monocytes/100 WBC (Bld) 4.9 % Normal 1.7-12.0 [facility] Comment on above: Performed By: #### C BC ####[facility] [address] [place], [place] [address]Dr. Zainab Simpson NEUT # 5.7 103/ul Normal 1.4-6.5 [facility] Comment on above: Performed By: #### C BC ####[facility] [address] [place], [place] [address]Dr. Zainab Simpson Neutrophils/100 WBC (Bld) 65.8 % Normal 43.0-75.0 [facility] Comment on above: Performed By: #### C BC ####[facility] [address] [place], [place] [address]Av. Zainab Simpson Platelet mean volume (Bld) [Entitic vol] 10.1 fL Normal 9.5-13.5 [facility] Comment on above: Performed By: #### C BC ####[facility] [address] [place], [place] [address]Nw. Zainab Simpson PLT 265 103/ul Normal 150-450 [facility] Comment on above: Performed By: #### C BC ####[facility] [address] [id number]. Zainab Simpson RBC 4.85 106/ul Normal 4.20-5.40 [facility] Comment on above: Performed By: #### C BC ####[facility] [address] [place] [id number]. Zainab Simpson WBC 8.7 103/ul Normal 4.0-11.0 [facility] Comment on above: Performed By: #### C BC ####[facility] [address] [place] [place] [id number] Simpson GLYCOHEMOGLOBIN A1Con 2021 ADA RECOMMENDATION ADA THERAPEUTIC TARGET 6.0 - 7.0 ACTION SUGGESTED > 7.0 Normal [facility] Comment on above: Performed By: #### A 1C #### [facility] [address] [address] [address] Zainab Simpson Glucose [Mass/Vol] 111 mg/dL Normal [facility] Comment on above: Performed By: #### A 1C #### [facility] [address] [address] [address] Zainab Simpson HbA1c (Bld) [Mass fraction] 5.5 % Normal <=6.0 [facility] Comment on above: Performed By: #### A 1C #### [facility] [address] [address] [address] Zainab Simpson LIPID PROFILEon 01-15-2022 CHOL-HDL RATIO NORM SEE BELOW Normal [facility] Comment on above: Result Comment: 3.3 - 4.4 LOW RISK 4.4 - 7.1 AVERAGE RISK 7.1 - 11.0 MODERATE RISK >11.0 HIGH RISK Performed By: #### T SH, LIPID, CMP #### [facility] [address] [place] [address] Dr. Zainab Simpson Cholesterol [Mass/Vol] 194 mg/dL Normal <=200 [facility] Comment on above: Performed By: #### T SH, LIPID, CMP #### [facility] [address] [place] [address] Dr. Zainab Simpson Cholesterol in HDL [Mass/Vol] 50 mg/dL Normal [facility] Comment on above: Performed By: #### T SH, LIPID, CMP #### [facility] [address] [place] [address] Dr. Zainab Simpson Cholesterol in LDL [Mass/Vol] 108.8 mg/dL Normal [facility] Comment on above: Performed By: #### T SH, LIPID, CMP #### [facility] [address] [place] [address] Dr. Zainab Simpson Cholesterol.total/Ch olesterol in HDL [Mass ratio] 3.9 {ratio} Normal [facility] Comment on above: Performed By: #### T SH, LIPID, CMP #### [facility] [address] [place] [address] Dr. Zainab Simpson HDL NORMAL > or = 60 mg/dl - LO W CARDIOVASCULAR RISK <40 mg/dl - HIGH CARDIOVASCULAR RISK Normal [facility] Comment on above: Performed By: #### T SH, LIPID, CMP #### [facility] [address] [place] [address] Dr. Zainab Simpson LDL CALC NORMAL SEE BELOW Normal [facility] Comment on above: Result Comment: <100 mg/dl OPTIMAL 100 - 129 mg/dl NEAR OR ABOVE OPTIMAL 130 - 159 mg/dl BORDERLINE HIGH 160 - 189 mg/dl HIGH >190 mg/dl VERY HIGH Performed By: #### T SH, LIPID, CMP #### [facility] [address] [place] [address] Dr. Zainab Simpson Triglyceride [Mass/Vol] 176 mg/dL Critically high <=150 [facility] Comment on above: Performed By: #### T SH, LIPID, CMP #### [facility] [address] [address] [address] Zainab Simpson VLDL CALC 35.2 mg/dL Normal [facility] Comment on above: Performed By: #### T SH, LIPID, CMP #### [facility] [address] [address] [address] Zainab Simpson PROF 14(COMP METB)on 022 Albumin [Mass/Vol] 3.2 g/dL Critically low 3.5-5.0 Th [facility] Comment on above: Performed By: #### T SH, LIPID, CMP ####[facility] [address] [address]DrYogi Simpson Albumin/Globulin [Mass ratio] 0.7 {ratio} Normal [facility] Comment on above: Performed By: #### T SH, LIPID, CMP ####[facility] [address] [place] [address]Dr. Zainab Simpson ALP [Catalytic activity/Vol] 70 U/L Normal 38-126 [facility] Comment on above: Performed By: #### T SH, LIPID, CMP ####[facility] [address] [place] [address]Dr. Zainab Simpson ALT [Catalytic activity/Vol] 28 U/L Normal 9-52 [facility] Comment on above: Performed By: #### T SH, LIPID, CMP ####[facility] [address] [place] [address]DrYogi Simpson Anion gap [Moles/Vol] 7.7 mmol/L Normal [facility] Comment on above: Performed By: #### T SH, LIPID, CMP ####[facility] [address] [place] [address]Dr. Zainab Simpson AST [Catalytic activity/Vol] 14 U/L Normal 14-36 [facility] Comment on above: Performed By: #### T SH, LIPID, CMP ####[facility] [address] [place] [address]Dr. Zainab Simpson Bilirubin [Mass/Vol] 0.4 mg/dL Normal 0.2-1.3 [facility] Comment on above: Performed By: #### T ERWIN, LIPID, CMP ####[facility] [address] [place], [place] [address]Dr. Zainab Simpson Calcium [Mass/Vol] 9.1 mg/dL Normal 8.4-10.2 [facility] Comment on above: Performed By: #### T ERWIN, LIPID, CMP ####[facility] [address] [place], [place] [address]Dr. Zainab Simpson Chloride [Moles/Vol] 105 mmol/L Normal 98-107 [facility] Comment on above: Performed By: #### T ERWIN, LIPID, CMP ####[facility] [address] [place], [place] [address]Dr. Zainab Simpson CO2 [Moles/Vol] 31.0 mmol/L Critically high 22.0-30.0 [facility] Comment on above: Performed By: #### T ERWIN, LIPID, CMP ####[facility] [address] [place], [place] [address]Dr. Zainab Simpson Creatinine [Mass/Vol] 0.63 mg/dL Normal 0.52-1.04 [facility] Comment on above: Performed By: #### T ERWIN, LIPID, CMP ####[facility] [address] [place], [place] [address]Dr. Zainab Simpson EGFR-AF ISRAELI >60 Normal >=60 [facility] Comment on above: Performed By: #### T ERWIN, LIPID, CMP ####[facility] [address] [place], [place] [address]Dr. Zainab Simpson EGFR-NON AF ISRAELI >60 Normal >=60 [facility] Comment on above: Performed By: #### T SH, LIPID, CMP ####[facility] [address] [place], [place] [address]Dr. Zainab Simpson Globulin (S) [Mass/Vol] 4.3 g/dL Normal [facility] Comment on above: Performed By: #### T SH, LIPID, CMP ####[facility] [address] [place] [address]Dr. Zainab Simpson Glucose [Mass/Vol] 92 mg/dL Normal 74-106 [facility] Comment on above: Performed By: #### T SH, LIPID, CMP ####[facility] [address] [place] [address]Dr. Zainab Simpson Potassium [Moles/Vol] 3.7 mmol/L Normal 3.4-5.0 [facility] Comment on above: Performed By: #### T SH, LIPID, CMP ####[facility] [address] [place] [address]Dr. Zainab Simpson Protein [Mass/Vol] 7.5 g/dL Normal 6.1-8.2 [facility] Comment on above: Performed By: #### T SH, LIPID, CMP ####[facility] [address] [place] [address]Dr. Zainab Simpson Sodium [Moles/Vol] 140 mmol/L Normal 137-145 [facility] Comment on above: Performed By: #### T SH, LIPID, CMP ####[facility] [address] [place] [address]Dr. Zainab Simpson Urea nitrogen [Mass/Vol] 9.0 mg/dL Normal 7.0-17.0 [facility] Comment on above: Performed By: #### T ERWIN, LIPID, CMP ####[facility] [address] [place] [address]Dr. Zainab Simpson Urea nitrogen/Creatinine [Mass ratio] 14.3 mg/mg Normal [facility] Comment on above: Performed By: #### T SH, LIPID, CMP ####[facility] [address] [place] [id number]. Zainab Simpson TSHon 01-15-2022 TSH 4.291 uIU/mL Normal 0.470-4.680 The [facility] Comment on above: Performed By: #### T SH, LIPID, CMP #### [facility] [address] [place], [place] [address] Dr. Zainab Simpson TSH RANGE SEE BELOW Normal [facility] Comment on above: Result Comment: <0.3 4 UIU/ml HYPERTHYROID 0.34-5.60 UIU/ml EUTHYROID >5.60 UIU/ml HYPOTHYROID Performed By: #### T SH, LIPID, CMP #### [facility] [address] [place] [address] Dr. Zainab Simpson UA RANDOM W/MICROSCOPICon BACTERIA TRACE Abnormal NONE SEEN [facility] Comment on above: Performed By: #### U AMIC #### [facility] [address] [place] [address] Dr. Zainab Simpson Bilirubin Ql (U) Negative Normal NEGATIVE [facility] Comment on above: Performed By: #### U AMIC #### [facility] [address] [place] [address] Dr. Zainab Simpson CAST NONE SEEN Normal NONE SEEN [facility] Comment on above: Performed By: #### U AMIC #### [facility] [address] [place] [address] Dr. Zainab Simpson Clarity (U) CLEAR Normal CLEAR [facility] Comment on above: Performed By: #### U AMIC #### [facility] [address] [place] [address] Dr. Zainab Simpson Color (U) LT. YELLOW Normal YELLOW [facility] Comment on above: Performed By: #### U AMIC #### [facility] [address] [place] [address] Dr. Zainab Simpson Crystals LM Nom (Urine sed) NONE SEEN Normal NONE SEEN [facility] Comment on above: Performed By: #### U AMIC #### [facility] [address] [place] [address] Dr. Zainab Simpson Epithelial cells LM Ql (Urine sed) FEW Abnormal NONE SEEN /RARE [facility] Comment on above: Performed By: #### U AMIC #### [facility] [address] [place] [address] Dr. Zainab Simpson Glucose Ql (U) Negative Normal NEGATIVE [facility] Comment on above: Performed By: #### U AMIC #### [facility] [address] [place] [address] Dr. Zainab Simpson Hemoglobin Ql (U) Negative Normal NEGATIVE [facility] Comment on above: Performed By: #### U AMIC #### [facility] [address] [address] [address] Zainab Simpson Ketones Ql (U) Negative Normal NEGATIVE [facility] Comment on above: Performed By: #### U AMIC #### [facility] [address] [address] [address] Zainab Simpson LEUKOCYTES Negative Normal NEGATIVE [facility] Comment on above: Performed By: #### U AMIC #### [facility] [address] [address] [address] Zainab Simpson MUCOUS NONE SEEN Normal NONE SEEN [facility] Comment on above: Performed By: #### U AMIC #### [facility] [address] [place] [address] Dr. Zainab Simpson Nitrite Ql (U) Negative Normal NEGATIVE [facility] Comment on above: Performed By: #### U AMIC #### [facility] [address] [place] [address] Dr. Zainab Simpson pH (U) 6.0 [pH] Normal 5-9 [facility] Comment on above: Performed By: #### U AMIC #### [facility] [address] [place] [address] Dr. Zainab Simpson RBC NONE SEEN Abnormal 0-2 [facility] Comment on above: Performed By: #### U AMIC #### [facility] [address] [place] [address] Dr. Zainab Simpson SPEC GRAVITY 1.025 Normal 1.005-<=1.025 [facility] Comment on above: Performed By: #### U AMIC #### [facility] [address] [place] [address] Dr. Zainab Simpson UA PROTEIN Negative Normal NEGATIVE/ TRACE [facility] Comment on above: Performed By: #### U AMIC #### [facility] [address] [place] [address] Dr. Zainab Simpson Urobilinogen Qn (U) 0.2 {Robyn'U}/dL Normal 0.2 - 1. 0 [facility] Comment on above: Performed By: #### U AMIC #### [facility] [address] [place], [place] [address] Dr. Zainab Simpson WBC 0-2 Abnormal NONE SEEN [facility] Comment on above: Performed By: #### U AMIC #### [facility] [address] [place], [place] [address] Dr. Zainab Simpson Vital Signs Date Time Vital Sign Value Performing Clinician Faci lity 09-02-2024 10:44-0400 Body mass index (BMI) [Ratio] 45.4 kg/m2 Joellen Flako DO Work Phone: [facility] 09-02-2024 10:44-0400 Body weight 137.44 kg Joellen Flako DO Work Phone: [facility] 09-02-2024 10:44-0400 Diastolic blood pressure 82 mm[Hg] Joellen Flako DO Work Phone: [facility] 09-02-2024 10:44-0400 Systolic blood pressure 124 mm[Hg] Joellen Flako DO Work Phone: [facility] Encounters Encounter Date Encounter Type Care Provider Facility Start: 09-03-2024 End: 09-03-2024 ambulatory Joellen Flako Facility:[facility] Start: 09-03-2024 End: 09-03-2024 Departed Referred DO Joellen Flako Work Phone: [facility] Start: 09-02-2024 End: 09-02-2024 Patient encounter procedure Joellen Flako DO Work Phone: [facility] Comment on above: Pre-op examination; Request for sterilization; Menorrhagia with regular cycle; Abnormal uterine bleeding (AUB); Pelvic pain in female; Dysmenorrhea Start: 09-02-2024 End: 09-02-2024 Preprocedural examination done Joellen Flako DO Work Phone: [facility] Start: 09-02-2024 End: 09-02-2024 ambulatory JOELLEN FLAKO Not Available Start: 07-29-2024 End: 07-29-2024 ambulatory JOELLEN FLAKO Not Available Start: 06-10-2024 Encounter for gynecological examination (general) (routine) without abnormal findings Joellen Flako DO Work Phone: [facility] Start: 06-10-2024 End: 06-10-2024 ambulatory TRIP PAEZHOLZ Not Available Start: 10-31-2022 End: 11-01-2022 ambulatory KIRBY TRIP AICHHOLZ Facility:[facility] Start: 01-24-2022 End: 01-25-2022 ambulatory HAND BENDER TRIP AICHHOLZ Facility:[facility] Start: 01-18-2022 End: 01-18-2022 ambulatory HAND BENDER TRIP AICHHOLZ Facility:[facility] Start: 01-15-2022 End: 01-16-2022 ambulatory KIRBY TRIP AICHHOLZ Facility:[facility] Procedures Date Procedure Procedure Detail Performing Clinician Start: 09-02-2024 Urine test visual color cmprsn meths Joellen Flako DO Work Phone: Start: 06-17-2024 Mammography Joellenlizet Hedrick o DO Work Phone: Start: 06-10-2024 Microscopic observat ion [Identifier] in Cervix by Cyto stain Joellen Flako DO Work Phone: Plan of Treatment Date Care Activity Detail Author Start: 06-10-2027 Screening for malignant neoplasm of cervix [facility] Start: 01-18-2027 Screening for malignant neoplasm of cervix HPV/Cotest [facility] Start: 06-17-2025 Screening for malignant neoplasm of breast Mammogram [facility] Tissue exam Tissue exam Path ology and Cytology Routine Dysmenorrhea Ordered: 09/02/2024 [facility] Work Phone: Comment on above: Ordered: 09/02/2024 Payers Date Payer Category Payer Self-pay 2022 Medicaid [facility] [id number] 1981 Unknown [id number] 1981 Unknown [id number] 1981 Unknown [id number] 1981 Unknown [id number] 1981 Unknown [id number] 1981 Unknown [id number] 1981 Unknown [id number] 1959 Unknown [id number] Medicaid [id number] Unknown [employer] [id number] Social History Date Type Detail Facility Start: [facility]10-[facility]24 [facility] History of tobacco use Cigarette Smoker [facility] Start: 09-02-2024 Alcoholic beverage intake Ex-drinker (finding) [facility] Start: 06-10-2024 History of Social function [facility] Start: 06-10-2024 B1300 Health Literacy [facility] How often do you nee d to have someone help you when you read instructions, pamphlets, or other written material from your doctor or pharmacy [SILS] Never [facility] Do you belong to any clubs or organizations such as mandaen groups, unions, fraternal or athletic groups, or school groups? No [facility] Are you now , , , , never or living with a partner? Never [facility] How often to you hav e a drink containing alcohol? Monthly or less [facility] How many standard dr inks containing alcohol do you have on a typical day? 1 or 2 [facility] How often do you hav e 6 or more drinks on 1 occasion? Never [facility] Do you feel stress - tense, restless, nervous, or anxious, or unable to sleep at night because your mind is troubled all the time - these days [OSQ] To some extent [facility] (I/We) worried wheth er (my/our) food would run out before (I/we) got money to buy more. Never true [facility] Start: 06-10-2024 Tobacco Comment vapes [facility] Start: 1981 Sex assigned at Not on file [facility] Start: 1980 Sex Assigned At Female F [facility] History of Present illness Narrative 09-02-2024 Monika Cat - 09/02/2024 10:30 AM EDT Note Date & Type Note Facility 09-02-2024 History of Presen t illness Narrative Reason for Appointment: Patient ID: Jose Maradiaga is a 43 y.o. female who presents for Pre-op Visit and Endometrial Biopsy Patient presents today for Pre Op/Endometrial Biopsy appointment. Patient is scheduled to undergo Da Varun assisted Bilateral Laparoscopic Salpingectomy and Endometrial Ablation with Maggie on 09/27/[address] Arriola at [facility]. MEDICATIONS Current Outpatient Medications Medication Instructions atorvastatin (LIPITOR) 10 mg, Oral, Nightly Chlorhexidine Gluconate (Hibiclens) 4 % solution Apply to torso and breast area leave on for 5 minutes and then wash off. Do this daily for 5 doses. Avoid use on face ALLERGIES Allergies Allergen Reactions Wound Dressing Adhesive Rash Pt has a sensitivity to dressing adhesive that can cause rash and open areas-bleeding PROBLEMS Active Ambulatory Problems Diagnosis Date Noted Mixed hyperlipidemia ([facility]) 06/10/2024 Morbid obesity due to excess calories ([facility]) 06/10/2024 Mixed anxiety and depressive disorder 06/10/2024 Participant in health and wellness plan 06/10/2024 Encounter for screening mammogram for malignant neoplasm of breast 06/10/2024 Pap smear, as part of routine gynecological examination 06/10/2024 Dysmenorrhea 06/10/2024 Vaginal discharge 06/10/2024 Lumbar back pain 06/10/2024 Folliculitis 06/10/2024 Bacterial vaginosis 06/12/2024 Lower abdominal pain 07/29/2024 Menorrhagia with regular cycle 07/29/2024 Resolved Ambulatory Problems Diagnosis Date Noted No Resolved Ambulatory Problems No Additional Past Medical History HISTORY PAST MEDICAL HISTORY SOCIAL HISTORY History reviewed. No pertinent past medical history. Social History Tobacco Use Smoking status: Every Day Types: Cigarettes Smokeless tobacco: Not on file Tobacco comments: vapes Substance Use Topics Alcohol use: Not Currently Drug use: Not on file FAMILY HISTORY No family history on file. SURGICAL HISTORY History reviewed. No pertinent surgical history. REVIEW OF SYSTEMS Review of Systems: Review of Systems Constitutional: Negative. HENT: Negative. Eyes: Negative. Respiratory: Negative. Cardiovascular: Negative. Gastrointestinal: Negative. Genitourinary: Positive for menstrual problem and pelvic pain. Musculoskeletal: Negative. Skin: Negative. Neurological: Negative. All other systems reviewed and are negative. Hematological: Negative. Endocrine: Negative. Allergic/Immunologic: Negative. OBJECTIVE Objective: Physical Exam Constitutional: Appearance: Normal appearance. She is well-developed. Genitourinary: Vulva normal. Cardiovascular: Rate and Rhythm: Normal rate and regular rhythm. Pulmonary: Effort: Pulmonary effort is normal. Breath sounds: Normal breath sounds. Abdominal: General: Bowel sounds are normal. There is no distension. Palpations: Abdomen is soft. Tenderness: There is no abdominal tenderness. There is no guarding or rebound. Musculoskeletal: General: No swelling. Normal range of motion. Right lower leg: No edema. Left lower leg: No edema. Neurological: Mental Status: She is alert and oriented to person, place, and time. Skin: General: Skin is warm and dry. Psychiatric: Mood and Affect: Mood normal. Behavior: Behavior normal. Vitals and nursing note reviewed. Exam conducted with a final assembly inspector present. Vitals: Estimated body mass index is 45.4 kg/m as calculated from the following: Height as of 06/10/24: 5' 8.5 . Weight as of this encounter: 303 lb. BP: 124/82 No LMP recorded. ASSESSMENT & PLAN ICD-10-CM 1. Pre-op examination Z01.818 2. Request for sterilization Z30.2 3. Menorrhagia with regular cycle N92.0 4. Abnormal uterine bleeding (AUB) N93.9 5. Pelvic pain in female R10.2 6. Dysmenorrhea N94.6 POCT , urine manually resulted Tissue exam EMBX: Patient was placed in dorsal lithotomy position with feet in stirrups. A sterile speculum was placed into the vagina and the cervix was visualized. The cervix was grasped with a single tooth tenaculum. The endometrial pipette was placed through the cervix into the uterus, endometrial curettage was performed and sampling was obtained, endometrial curettings were placed in formalin, and single tooth tenaculum was removed. Excellent hemostasis was assured. All instruments were removed from vagina. Pre Op: Patient is doing well but has desire for sterilization and has complaints of bleeding and pelvic pain. Patient has tried hormone therapy in the past but all attempts to subside patients issues of bleeding have failed. I have discussed conservative management vs. surgical management with the patient in detail and patient desires surgical management at this time. Patient has voiced understanding that a Bilateral Salpingectomy is considered to be permanent and patient will undergo Da Varun assisted Bilateral Laparoscopic Salpingectomy & Endometrial Ablation with Maggie on 09/27/2024. Surgical consents were signed, mmc was reviewed, and patient is to proceed to [facility] OR. Follow Up: Patient is to follow up between 1-2 weeks post op to assess proper healing and recovery from procedure. Documented by Alessandra Benedict LPN on behalf of: Joellen Arriola DO documented in this encounter [facility] Evaluation note Note Date & Type Note Facility Evaluation note Diagnosis Gynecologic exam normal- Primary Morbid obesity due to excess calories (CMS/HCC) Mixed hyperlipidemia (CMS/HCC) Mixed hyperlipidemia Participant in health and wellness plan Encounter for screening mammogram for malignant neoplasm of breast Dysmenorrhea Vaginal discharge Leukorrhea, not specified as infective Lumbar back pain Lumbago Folliculitis Other specified disease of hair and hair follicles Pre-op examination Request for sterilization Menorrhagia with regular cycle Abnormal uterine bleeding (AUB) Pelvic pain in female Unspecified symptom associated with female genital organs Dysmenorrhea documented in this encounter [facility] Evaluation note Note Date & Type Note Facility Evaluation note No assessment information availa [facility] Work Phone: Summary Purpose Family History No Family History Records FoundNo Family History Records FoundNo Family History Records Found Advance Directives No Advanced Directives Records FoundNo Advanced Directives Records FoundNo Advanced Directives Records Found Additional Source Comments INFORMATION SOURCE (unrecogn ized section and content) DATE CREATED AUTHOR 01/11/2023 [facility] DATE CREATED AUTHOR AUTHOR'S ORGANIZ ATION 09/03/2024 [facility] EPIC DATE CREATED AUTHOR AUTHOR'S ORGANIZ ATION 09/05/2024 [facility] Reason for Visit (unrecogniz ed section and content) Reason Comments Pre-op Visit Endometrial Biopsy Care Teams (unrecognized sec tion and content) [employer] Relationship Specialty Start Date End Date Brad Lala MD [address] [place] [address] PCP - General Family Medicine 05/14/24 Team Status: Inactive Member Role Status Dates Joellen Arriola DO Attending Provider Active Start : September 03, 2024 End: September 03, 2024 Goals (unrecognized section and content) Goals may be documented in a n alternate section FOR RECORDS PERTAINING TO PATIENTS WHO ARE [...] BE BASED ON THE PRIMARY CLINICAL RECORDS. [employer] provides no warranty or guarantee of the accuracy or completeness of information in this document.
== END 2024-09-02 13:13 | disposition home or self-care (01) ==
LOC: LAB 13:12
PROVIDERS: PCP Nurse Practitioner; Visit Provider Obstetrics & Gynecology
DX: N94.6 Dysmenorrhea, unspecified (principal)
CPT/HCPCS: 88305

== ENCOUNTER 2024-09-12 13:09 | Outpatient (OUT) | payer MEDICAID, SELFPAY ==
--- NOTE | 2024-09-12 13:27 | XR_ITS ---
The [address] [address] Patient Name: JOSE RODRIGUEZ MRN: [id number] date: 1980 Sex: F Assigned Patient Location: [facility] Current Patient Location: [facility] Accession/Order Number: [id number] Exam Date: 09/12/2024 13:35 Report Date: 09/12/2024 14:03 At the request of: JOELLEN BALLESTEROS Procedure: XR chest 2V PROCEDURE: XR chest 2V DATE: 09/12/2024 12:35 PM CDT COMPARISONS: None. CLINICAL INDICATION: 43 years Female Preop exam FINDINGS: The cardiomediastinal silhouette and pulmonary vasculature are within normal limits. The lungs are clear. There is no evidence of pleural effusion or pneumothorax. XR/XR chest 2V IMPRESSION: Chest radiograph is within normal limits. Electronically authenticated by: ANKIT BRIGHT Date: 09/12/2024 14:03
== END 2024-09-12 13:10 | disposition home or self-care (01) ==
LOC: PST 13:10
PROVIDERS: PCP Nurse Practitioner; Visit Provider Obstetrics & Gynecology
DX: Z01.810 Encounter for preprocedural cardiovascular examination (principal); N92.0 Excessive and frequent menstruation with regular cycle; N93.9 Abnormal uterine and vaginal bleeding, unspecified; R10.2 Pelvic and perineal pain
CPT/HCPCS: 71046

== ENCOUNTER 2024-09-27 07:42 | Day surgery (SDC) | payer MEDICAID, SELFPAY ==
[2024-09-12 14:08] VITALS: BP 127/82; PULSE 99; TEMP 36.1; O2SAT 99; BMI 44.9
[2024-09-27] VITALS (12 sets, daily range): BP systolic 102–144; BP diastolic 60–94; PULSE 66–87; TEMP 36.4–36.8; O2SAT 90–99; BMI 45.6
--- OUTSIDE RECORDS SUMMARY | 2024-09-27 07:46 | XMS_ITS | CCD ---
Author Organization [facility] Care Team Providers Care Process Worker Name Role Phone AICHHOLZ, MESSAGE BROKER DEVELOPER TRIP Consulting Unavailable AICHHOLZ, MESSAGE BROKER DEVELOPER TRIP Primary Care Unavailable AICHHOLZ, MESSAGE BROKER DEVELOPER TRIP Admitting Unavailable AICHHOLZ, MESSAGE BROKER DEVELOPER TRIP Attending Unavailable AICHHOLZ, MESSAGE BROKER DEVELOPER TRIP Consulting Unavailable AICHHOLZ, MESSAGE BROKER DEVELOPER TRIP Primary Care Unavailable AICHHOLZ, MESSAGE BROKER DEVELOPER TRIP Admitting Unavailable AICHHOLZ, MESSAGE BROKER DEVELOPER TRIP Attending Unavailable AICHHOLZ, MESSAGE BROKER DEVELOPER TRIP Consulting Unavailable AICHHOLZ, MESSAGE BROKER DEVELOPER TRIP Primary Care Unavailable AICHHOLZ, MESSAGE BROKER DEVELOPER TRIP Admitting Unavailable AICHHOLZ, MESSAGE BROKER DEVELOPER TRIP Attending Unavailable AICHHOLZ, MESSAGE BROKER DEVELOPER TRIP Primary Care Unavailable DR JINNY WHITE V Consulting Unavailable AICHHOLZ, MESSAGE BROKER DEVELOPER TRIP Admitting Unavailable AICHHOLZ, MESSAGE BROKER DEVELOPER TRIP Attending Unavailable AICHHOLZ, MESSAGE BROKER DEVELOPER TRIP Consulting Unavailable AICHHOLZ, TRIP Attending Unavailable JOELLEN ARRIOLA Attending Unavailable AICHHOLZ, TRIP Referring Unavailable JOELLEN ARRIOLA Attending Unavailable Brad Lala MD Primary Care Provider [phone] DO Joellen Arriola Attending Provider Joellen Arriola Attending Unavailable Joellen Arriola Admitting Unavailable Allergies Allergy Classification Reported Allergen(s) Allergy Type [...] Normal [facility] Preg Test, Ur Negative [facility] Rudi 09-02-2024 L Specimen: [id number] Received: 09/03/24 Status: MIGUEL Stone Num: [id number] Spec Type: Surgical Subm Dr: Joellen Arriola Tissues: A Endometrium - Biopsy (EMBX) Procedures: HE/2, Gross/Micro L4 Age/ Patient Sex Location Account Attending Physician Jose Rodriguez 43/F [place] [id number] Joellen Arriola SPEC NUM: [id number] RECD: 09/03/24 STATUS: MIGUEL STONE NUM: [id number] JAMILA: 09/02/24- DR: Joellen Arriola ENTERED: 09/03/24 [facility] DR: Mesfin,Gillian SPEC TYPE: Surgical DEPT: ISABELLE ANSARI ENTERED BY: [id number] RECV BY: [id number] ORDERED: HE/2, Gross/Micro L4 ORDERED: HE/2, Gross/Micro L4 Pathological Diagnosis Endometrium, biopsy: - Proliferative phase endometrium. - No evidence of hyperplasia or malignancy identified. Clinical Information Dysmenorrhea Gross Description The specimen is received in formalin with the patient's name and endometrial biopsy and consists of multiple pena-pink mucoid tissue fragments measuring 2.5 x 1.0 x 0.4 cm in aggregate. The specimen is filtered and entirely submitted in cassette A1. Microscopic Description Microscopic examination is performed. CPT Codes 07292 -------- -------- Specimen: [id number] Received: 09/03/24 Status: MIGUEL Stone Num: [id number] Spec Type: Surgical Subm Dr: Joellen Arriola Tissues: A Endometrium - Biopsy (EMBX) Procedures: HE/2, Gross/Micro L4 -------- Patient: Jose Rodriguez [id number] (Continued) -------- Signed (signature on file) Navjot Rdz MD 09/11/24 0935 Normal [facility] CBC AUTO DIFFon 10-31-2022 BASO # 0.0 103/ul Normal 0.0-0.1 [facility] Comment on above: Performed By: #### C BC #### [facility] [address] [place] [address] Dr. Zainab Simpson Basophils/100 WBC (Bld) 0.5 % Normal 0.2-2.0 [facility] Comment on above: Performed By: #### C BC #### [facility] [address] [place] [address] Dr. Zainab Simpson EO # 0.1 103/ul Normal 0.0-0.7 [facility] Comment on above: Performed By: #### C BC #### [facility] [address] [place] [address] Dr. Zainab Simpson Eosinophils/100 WBC (Bld) 1.6 % Normal 0.9-7.0 [facility] Comment on above: Performed By: #### C BC #### [facility] [address] [place] [address] Dr. Zainab Simpson Erythrocyte distribution width (RBC) [Ratio] 12.2 % Normal 11.0-15.0 [facility] Comment on above: Performed By: #### C BC #### [facility] [address] [place] [address] Dr. Zainab Simpson Hematocrit (Bld) [Volume fraction] 41.2 % Normal 36.0-48.0 [facility] Comment on above: Performed By: #### C BC #### [facility] [address] [place] [address] Dr. Zainab Simpson Hemoglobin (Bld) [Mass/Vol] 13.7 g/dL Normal 12.0-16.0 [facility] Comment on above: Performed By: #### C BC #### [facility] [address] [place] [address] Dr. Zainab Simpson IG # 0.03 10e3/ul Normal 0.00-0.03 [facility] Comment on above: Performed By: #### C BC #### [facility] [address] [place] [address] Dr. Zainab Simpson IG % 0.3 % Normal 0.0-0.5 [facility] Comment on above: Performed By: #### C BC #### [facility] [address] [place] [address] Dr. Zainab Simpson LYMPH # 2.0 103/ul Normal 1.2-3.8 [facility] Comment on above: Performed By: #### C BC #### [facility] [address] [place] [address] Dr. Zainab Simpson Lymphocytes/100 WBC (Bld) 23.1 % Normal 20.5-60.0 [facility] Comment on above: Performed By: #### C BC #### [facility] [address] [place] [address] Dr. Zainab Simpson MANUAL DIFF REQ NO Normal [facility] Comment on above: Performed By: #### C BC #### [facility] [address] [place] [address] Dr. Zainab Simpson MCH (RBC) [Entitic mass] 27.6 pg Normal 26.7-34.0 [facility] Comment on above: Performed By: #### C BC #### [facility] [address] [place] [address] Dr. Zainab Simpson MCHC (RBC) [Mass/Vol] 33.3 g/dL Normal 29.9-35.2 [facility] Comment on above: Performed By: #### C BC #### [facility] [address] [address] [address] Zainab Simpson MCV (RBC) [Entitic vol] 82.9 fL Normal 81.0-99.0 [facility] Comment on above: Performed By: #### C BC #### [facility] [address] [address] [address] Zainab Simpson MONO # 0.3 103/ul Normal 0.3-0.8 [facility] Comment on above: Performed By: #### C BC #### [facility] [address] [address] [address] Zainab Simpson Monocytes/100 WBC (Bld) 3.7 % Normal 1.7-12.0 [facility] Comment on above: Performed By: #### C BC #### [facility] [address] [place] [address] Dr. Zainab Simpson NEUT # 6.3 103/ul Normal 1.4-6.5 [facility] Comment on above: Performed By: #### C BC #### [facility] [address] [place] [address] Dr. Zainab Simpson Neutrophils/100 WBC (Bld) 70.8 % Normal 43.0-75.0 [facility] Comment on above: Performed By: #### C BC #### [facility] [address] [place] [address] Dr. Zainab Simpson Platelet mean volume (Bld) [Entitic vol] 10.3 fL Normal 9.5-13.5 [facility] Comment on above: Performed By: #### C BC #### [facility] [address] [address] [address] Zainab Simpson PLT 289 103/ul Normal 150-450 [facility] Comment on above: Performed By: #### C BC #### [facility] [address] [address] [address] Zainab Simpson RBC 4.97 106/ul Normal 4.20-5.40 [facility] Comment on above: Performed By: #### C BC #### [facility] [address] [place] [address] Dr. Zaianb Simpson WBC 8.8 103/ul Normal 4.0-11.0 [facility] Comment on above: Performed By: #### C BC #### [facility] [address] [place] [address] Dr. Zainab Simpson FREE T4on 10-31-2022 Free T4 [Mass/Vol] 0.89 ng/dL Normal 0.76-1.46 [facility] Comment on above: Performed By: #### F T4 #### [facility] [address] [place] [address] Dr. Zainab Simpson PROF 14(COMP METB)on 022 Albumin [Mass/Vol] 3.2 g/dL Critically low 3.4-5.0 [facility] Comment on above: Performed By: #### T SH, CMP #### [facility] [address] [place] [address] Dr. Zainab Simpson Albumin/Globulin [Mass ratio] 0.7 {ratio} Normal [facility] Comment on above: Performed By: #### T SH, CMP #### [facility] [address] [place] [address] Dr. Zainab Simpson ALP [Catalytic activity/Vol] 64 U/L Normal 46-116 [facility] Comment on above: Performed By: #### T SH, CMP #### [facility] [address] [place] [address] Dr. Zainab Simpson ALT [Catalytic activity/Vol] 32 U/L Normal 14-59 [facility] Comment on above: Performed By: #### T SH, CMP #### [facility] [address] [place] [address] Dr. Zainab Simpson Anion gap [Moles/Vol] 11.0 mmol/L Normal [facility] Comment on above: Performed By: #### T SH, CMP #### [facility] [address] [place] [address] Dr. Zainab Simpson AST [Catalytic activity/Vol] 21 U/L Normal 15-37 [facility] Comment on above: Performed By: #### T SH, CMP #### [facility] [address] [address] [address] Zainab Simpson Bilirubin [Mass/Vol] 0.5 mg/dL Normal 0.2-1.0 [facility] Comment on above: Performed By: #### T SH, CMP #### [facility] [address] [place] [address] Dr. Zainab Simpson Calcium [Mass/Vol] 9.0 mg/dL Normal 8.5-10.1 [facility] Comment on above: Performed By: #### T SH, CMP #### [facility] [address] [address] [address] Zainab Simpson Chloride [Moles/Vol] 102 mmol/L Normal 98-107 [facility] Comment on above: Performed By: #### T SH, CMP #### [facility] [address] [place] [address] Dr. Zainab Simpson CO2 [Moles/Vol] 30.2 mmol/L Normal 21.0-32.0 [facility] Comment on above: Performed By: #### T SH, CMP #### [facility] [address] [place] [address] Dr. Zainab Simpson Creatinine [Mass/Vol] 0.62 mg/dL Normal 0.55-1.02 [facility] Comment on above: Performed By: #### T SH, CMP #### [facility] [address] [place] [address] Dr. Zainab Simpson EGFR-AF KOSOVAN >60 Normal >=60 [facility] Comment on above: Performed By: #### T SH, CMP #### [facility] [address] [place] [address] Dr. Zainab Simpson EGFR-NON AF KOSOVAN >60 Normal >=60 [facility] Comment on above: Performed By: #### T SH, CMP #### [facility] [address] [place] [address] Dr. Zainab Simpson Globulin (S) [Mass/Vol] 4.5 g/dL Normal [facility] Comment on above: Performed By: #### T SH, CMP #### [facility] [address] [address] [address] Zainab Simpson Glucose [Mass/Vol] 90 mg/dL Normal 74-106 [facility] Comment on above: Performed By: #### T SH, CMP #### [facility] [address] [address] [address] Zainab Simpson Potassium [Moles/Vol] 4.2 mmol/L Normal 3.5-5.1 [facility] Comment on above: Performed By: #### T SH, CMP #### [facility] [address] [address] [address] Zainab Simpson Protein [Mass/Vol] 7.7 g/dL Normal 6.4-8.2 [facility] Comment on above: Performed By: #### T SH, CMP #### [facility] [address] [place] [address] Dr. Zainab Simpson Sodium [Moles/Vol] 139 mmol/L Normal 136-145 [facility] Comment on above: Performed By: #### T SH, CMP #### [facility] [address] [place] [address] Dr. Zainab Simpson Urea nitrogen [Mass/Vol] 10.0 mg/dL Normal 7.0-18.0 [facility] Comment on above: Performed By: #### T SH, CMP #### [facility] [address] [place] [address] Dr. Zainab Simpson Urea nitrogen/Creatinine [Mass ratio] 16.1 mg/mg Normal [facility] Comment on above: Performed By: #### T SH, CMP #### [facility] [address] [address] [address] Zainab Simpson TSHon 10-31-2022 TSH 2.431 uIU/mL Normal 0.358-3.740 [facility] Comment on above: Performed By: #### T SH, CMP #### [facility] [address] [address] [address] Zainab Simpson MG MAMM SCREEN 3D VALERY CADon 01-24-2022 MG MAMM SCREEN 3D VALERY CAD Patient: JOSE RODRIGUEZ Exam Date: 01/24/2022 : 1980 Gender:F Ordering : KIRBY MOCTEZUMA MESSAGE BROKER DEVELOPER Admission #: [id number] Family : Order #: [id number] CLICK HERE TO VIEW EXAM RADIOLOGY REPORT PROCEDURE: MAMMOGRAM SCREENING 3D BILATERAL CAD COMPARISON: None. INDICATIONS: Screening mammography Calculator Name NCI Breast Cancer Risk Assessment Tool 5 Year Breast Cancer Risk 0.50% Lifetime Breast Cancer Risk 9.00% Personal Breast Cancer No Personal Ovarian Cancer No Treatments None Family Cancers Grandmother-paternal with lung cancer at age 66. LOCATION: [facility] BREAST COMPOSITION: Heterogeneously dense,which may obscure [...] White MD on 01/24/2022 at 10:42 Normal [facility] PAP ACOG PANEL 2: 30 to 65on 01-22-2022 . . Normal [facility] Comment on above: Result Comment: Perf ormed at: WB Performed By: #### [id number] #### [facility] [address] [address] [address] Zainab Simpson DIAGNOSIS: Comment Normal [facility] Comment on above: Result Comment: NEGA TIVE FOR INTRAEPITHELIAL LESION OR MALIGNANCY. Performed at: WB Performed By: #### [id number] #### [facility] [address] [address] [address] Zainab Simpson HPV Aptima Negative Normal Negative [facility] Comment on above: Result Comment: This nucleic acid amplification test detects fourteen high-risk HPV types (16,18,31,33,35,39,45,51,52,56,58,59,66,68) without differentiation. Performed at: =G Performed By: #### [id number] #### [facility] [address] [place] [address] Dr. Zainab Simpson Methodology: Comment Normal [facility] Comment on above: Result Comment: This liquid based ThinPrep(R) pap test was screened with the use of an image guided system. Performed at: WB Performed By: #### [id number] #### [facility] [address] [address] [address] Zainab Simpson Note: Comment Normal [facility] Comment on above: Result Comment: The Pap smear is a screening test designed to aid in the detection of premalignant and malignant conditions of the uterine cervix. It is not a diagnostic procedure and should not be used as the sole means of detecting cervical cancer. Both false-positive and false-negative reports do occur. . Performed at: WB Performed By: #### [id number] #### [facility] [address] [place] [address] Dr. Zainab Simpson Performed by: Comment Normal [facility] Comment on above: Result Comment: Loretta Oliveira, Non Food Receiving Clerk (ASCP) Performed at: WB Performed By: #### [id number] #### [facility] [address] [address] [address] Zainab Simpson Specimen adequacy: Comment Normal [facility] Comment on above: Result Comment: Sati sfactory for evaluation. Endocervical and/or squamous metaplastic cells (endocervical component) are present. Performed at: WB Performed By: #### [id number] #### [facility] [address] [place] [address] Dr. Zainab Simpson Age Gdln ACOG Testing 30-65 [facility] Comment on above: Performed By: #### [id number] #### [facility] [address] [place] [address] Dr. Zainab Simpson VAGINITIS/VAGINOSIS DNA PROB Joe 01-20-2022 Mana species Negative Normal Negative [facility] Comment on above: Performed By: #### V AGINT ####[facility] [address] [address]. Zainab Simpson Gardnerella vaginalis Negative Normal Negative [facility] Comment on above: Performed By: #### V AGINT ####[facility] [address] [address]Dr. Zainab Simpson Trichomonas vaginalis Negative Normal Negative [facility] Comment on above: Performed By: #### V AGINT ####[facility] [address] [id number]. Zainab Simpson CBC AUTO DIFFon 01-15-2022 BASO # 0.0 103/ul Normal 0.0-0.1 [facility] Comment on above: Performed By: #### C BC ####[facility] [address] [place], [place] [address]Dr. Avriladelina Simpson Basophils/100 WBC (Bld) 0.5 % Normal 0.2-2.0 [facility] Comment on above: Performed By: #### C BC ####[facility] [address] [place], [place] [address]Dr. Zainab Simpson EO # 0.2 103/ul Normal 0.0-0.7 [facility] Comment on above: Performed By: #### C BC ####[facility] [address] [place], [place] [address]Dr. Zainab Calvin Eosinophils/100 WBC (Bld) 1.8 % Normal 0.9-7.0 [facility] Comment on above: Performed By: #### C BC ####[facility] [address] [place], [place] [address]Dr. Zainab Simpson Erythrocyte distribution width (RBC) [Ratio] 12.8 % Normal 11.0-15.0 [facility] Comment on above: Performed By: #### C BC ####[facility] [address] [place], [place] [address]Dr. Zainab Simpson Hematocrit (Bld) [Volume fraction] 40.9 % Normal 36.0-48.0 [facility] Comment on above: Performed By: #### C BC ####[facility] [address] [place], [place] [address]Dr. Zainab Calvin Hemoglobin (Bld) [Mass/Vol] 13.4 g/dL Normal 12.0-16.0 [facility] Comment on above: Performed By: #### C BC ####[facility] [address] [address]DrYogi Simpson IG # 0.02 10e3/ul Normal 0.00-0.03 [facility] Comment on above: Performed By: #### C BC ####[facility] [address] [address]DrYogi Simpson IG % 0.2 % Normal 0.0-0.5 [facility] Comment on above: Performed By: #### C BC ####[facility] [address] [address]DrYogi Simpson LYMPH # 2.3 103/ul Normal 1.2-3.8 [facility] Comment on above: Performed By: #### C BC ####[facility] [address] [address]DrYogi Simpson Lymphocytes/100 WBC (Bld) 26.8 % Normal 20.5-60.0 [facility] Comment on above: Performed By: #### C BC ####[facility] [address] [address]DrYogi Simpson MANUAL DIFF REQ NO Normal [facility] Comment on above: Performed By: #### C BC ####[facility] [address] [id number] Simpson MCH (RBC) [Entitic mass] 27.6 pg Normal 26.7-34.0 [facility] Comment on above: Performed By: #### C BC ####[facility] [address] [id number] Simpson MCHC (RBC) [Mass/Vol] 32.8 g/dL Normal 29.9-35.2 [facility] Comment on above: Performed By: #### C BC ####[facility] [address] [id number] Simpson MCV (RBC) [Entitic vol] 84.3 fL Normal 81.0-99.0 [facility] Comment on above: Performed By: #### C BC ####[facility] [address] [address]Dr. Zainab Simpson MONO # 0.4 103/ul Normal 0.3-0.8 [facility] Comment on above: Performed By: #### C BC ####[facility] [address] [address]Dr. Zainab Simpson Monocytes/100 WBC (Bld) 4.9 % Normal 1.7-12.0 [facility] Comment on above: Performed By: #### C BC ####[facility] [address] [place], [place] [address]Dr. Zainab Simpson NEUT # 5.7 103/ul Normal 1.4-6.5 [facility] Comment on above: Performed By: #### C BC ####[facility] [address] [place], [place] [address]Dr. Zainab Simpson Neutrophils/100 WBC (Bld) 65.8 % Normal 43.0-75.0 [facility] Comment on above: Performed By: #### C BC ####[facility] [address] [place], [place] [address]Dr. Zainab Simpson Platelet mean volume (Bld) [Entitic vol] 10.1 fL Normal 9.5-13.5 [facility] Comment on above: Performed By: #### C BC ####[facility] [address] [place], [place] [address]Dr. Zainab Simpson PLT 265 103/ul Normal 150-450 [facility] Comment on above: Performed By: #### C BC ####[facility] [address] [place], [place] [address]Dr. Zainab Simpson RBC 4.85 106/ul Normal 4.20-5.40 [facility] Comment on above: Performed By: #### C BC ####[facility] [address] [place], [place] [address]Dr. Avriladelina Calvin WBC 8.7 103/ul Normal 4.0-11.0 [facility] Comment on above: Performed By: #### C BC ####[facility] [address] [place], [place] [address]FsDr. Zainab Simpson GLYCOHEMOGLOBIN A1Con 2021 ADA RECOMMENDATION ADA THERAPEUTIC TARGET 6.0 - 7.0 ACTION SUGGESTED > 7.0 Normal [facility] Comment on above: Performed By: #### A 1C #### [facility] [address] [address] [address] Zainab Simpson Glucose [Mass/Vol] 111 mg/dL Normal [facility] Comment on above: Performed By: #### A 1C #### [facility] [address] [address] [address] Zainab Simpson HbA1c (Bld) [Mass fraction] 5.5 % Normal <=6.0 [facility] Comment on above: Performed By: #### A 1C #### [facility] [address] [address] [address] Zainab Simpson LIPID PROFILEon 01-15-2022 CHOL-HDL RATIO NORM SEE BELOW Normal [facility] Comment on above: Result Comment: 3.3 - 4.4 LOW RISK 4.4 - 7.1 AVERAGE RISK 7.1 - 11.0 MODERATE RISK >11.0 HIGH RISK Performed By: #### T ERWIN, LIPID, CMP #### [facility] [address] [address] [address] Zainab Simpson Cholesterol [Mass/Vol] 194 mg/dL Normal <=200 [facility] Comment on above: Performed By: #### T ERWIN, LIPID, CMP #### [facility] [address] [address] [address] Zainab Simpson Cholesterol in HDL [Mass/Vol] 50 mg/dL Normal [facility] Comment on above: Performed By: #### T SH, LIPID, CMP #### [facility] [address] [address] [address] Zainab Simpson Cholesterol in LDL [Mass/Vol] 108.8 mg/dL Normal [facility] Comment on above: Performed By: #### T SH, LIPID, CMP #### [facility] [address] [address] [address] Zainab Simpson Cholesterol.total/Ch olesterol in HDL [Mass ratio] 3.9 {ratio} Normal [facility] Comment on above: Performed By: #### T ERWIN, LIPID, CMP #### [facility] [address] [address] [address] Zainab Simpson HDL NORMAL > or = 60 mg/dl - LO W CARDIOVASCULAR RISK <40 mg/dl - HIGH CARDIOVASCULAR RISK Normal [facility] Comment on above: Performed By: #### T ERWIN, LIPID, CMP #### [facility] [address] [address] [address] Zainab Simpson LDL CALC NORMAL SEE BELOW Normal [facility] Comment on above: Result Comment: <100 mg/dl OPTIMAL 100 - 129 mg/dl NEAR OR ABOVE OPTIMAL 130 - 159 mg/dl BORDERLINE HIGH 160 - 189 mg/dl HIGH >190 mg/dl VERY HIGH Performed By: #### T ERWIN, LIPID, CMP #### [facility] [address] [address] [address] Zainab Simpson Triglyceride [Mass/Vol] 176 mg/dL Critically high <=150 [facility] Comment on above: Performed By: #### T ERWIN, LIPID, CMP #### [facility] [address] [address] [address] Zainab Simpson VLDL CALC 35.2 mg/dL Normal [facility] Comment on above: Performed By: #### T ERWIN, LIPID, CMP #### [facility] [address] [address] [address] Zainab Simpson PROF 14(COMP METB)on 022 Albumin [Mass/Vol] 3.2 g/dL Critically low 3.5-5.0 [facility] Comment on above: Performed By: #### T ERWIN, LIPID, CMP ####[facility] [address] [address]Dr. Zainab Simpson Albumin/Globulin [Mass ratio] 0.7 {ratio} Normal [facility] Comment on above: Performed By: #### T ERWIN, LIPID, CMP ####[facility] [address] [address]Dr. Zainab Simpson ALP [Catalytic activity/Vol] 70 U/L Normal 38-126 [facility] Comment on above: Performed By: #### T ERWIN, LIPID, CMP ####[facility] [address] [address]Dr. Zainab Simpson ALT [Catalytic activity/Vol] 28 U/L Normal 9-52 [facility] Comment on above: Performed By: #### T ERWIN, LIPID, CMP ####[facility] [address] [address]Dr. Zainab Simpson Anion gap [Moles/Vol] 7.7 mmol/L Normal [facility] Comment on above: Performed By: #### T ERWIN LIPID, CMP ####[facility] [address]ctys[address] [place], [place] [address]Dr. Zainab Simpson AST [Catalytic activity/Vol] 14 U/L Normal 14-36 [facility] Comment on above: Performed By: #### T ERWIN LIPID, CMP ####[facility] [address] [place], [place] [address]Dr. Zainab Simpson Bilirubin [Mass/Vol] 0.4 mg/dL Normal 0.2-1.3 [facility] Comment on above: Performed By: #### T ERWIN LIPID, CMP ####[facility] [address] [place], [place] [address]Dr. Zainab Simpson Calcium [Mass/Vol] 9.1 mg/dL Normal 8.4-10.2 [facility] Comment on above: Performed By: #### T ERWIN, LIPID, CMP ####[facility] [address]ig[address]inec[address] [place], [place] [address]Dr. Zainab Simpson Chloride [Moles/Vol] 105 mmol/L Normal 98-107 [facility] Comment on above: Performed By: #### T ERWIN, LIPID, CMP ####[facility] [address] [place], [place] [address]Dr. Zainab Simpson CO2 [Moles/Vol] 31.0 mmol/L Critically high 22.0-30.0 [facility] Comment on above: Performed By: #### T ERWIN, LIPID, CMP ####[facility] [address] [place] [id number]. Zainab Simpson Creatinine [Mass/Vol] 0.63 mg/dL Normal 0.52-1.04 [facility] Comment on above: Performed By: #### T SH, LIPID, CMP ####[facility] [address] [id number]. Zainab Simpson EGFR-AF KOSOVAN >60 Normal >=60 [facility] Comment on above: Performed By: #### T SH, LIPID, CMP ####[facility] [address] [id number]. Zainab Simpson EGFR-NON AF KOSOVAN >60 Normal >=60 [facility] Comment on above: Performed By: #### T SH, LIPID, CMP ####[facility] [address] [place] [address]Dr. Zainab Simpson Globulin (S) [Mass/Vol] 4.3 g/dL Normal [facility] Comment on above: Performed By: #### T SH, LIPID, CMP ####[facility] [address]yl[address] [place] [id number]. Zainab Simpson Glucose [Mass/Vol] 92 mg/dL Normal 74-106 [facility] Comment on above: Performed By: #### T SH, LIPID, CMP ####[facility] [address] [address]Dr. Zainab Simpson Potassium [Moles/Vol] 3.7 mmol/L Normal 3.4-5.0 [facility] Comment on above: Performed By: #### T SH, LIPID, CMP ####[facility] [address] [address]Dr. Zainab Simpson Protein [Mass/Vol] 7.5 g/dL Normal 6.1-8.2 [facility] Comment on above: Performed By: #### T SH, LIPID, CMP ####[facility] [address] [address]Dr. Zainab Simpson Sodium [Moles/Vol] 140 mmol/L Normal 137-145 [facility] Comment on above: Performed By: #### T SH, LIPID, CMP ####[facility] [address] [address]DrYogi Simpson Urea nitrogen [Mass/Vol] 9.0 mg/dL Normal 7.0-17.0 [facility] Comment on above: Performed By: #### T SH, LIPID, CMP ####[facility] [address] [address]DrYogi Simpson Urea nitrogen/Creatinine [Mass ratio] 14.3 mg/mg Normal [facility] Comment on above: Performed By: #### T SH, LIPID, CMP ####[facility] [address] [address]Dr. Zainba Simpson TSHon 01-15-2022 TSH 4.291 uIU/mL Normal 0.470-4.680 [facility] Comment on above: Performed By: #### T SH, LIPID, CMP #### [facility] [address] [place] [address] Dr. Zainab Simpson TSH RANGE SEE BELOW Normal [facility] Comment on above: Result Comment: <0.3 4 UIU/ml HYPERTHYROID 0.34-5.60 UIU/ml EUTHYROID >5.60 UIU/ml HYPOTHYROID Performed By: #### T SH, LIPID, CMP #### [facility] [address] [place] [address] Dr. Zainab Simpson UA RANDOM W/MICROSCOPICon BACTERIA TRACE Abnormal NONE SEEN [facility] Comment on above: Performed By: #### U AMIC #### [facility] [address] [place] [address] Dr. Zainab Simpson Bilirubin Ql (U) Negative Normal NEGATIVE [facility] Comment on above: Performed By: #### U AMIC #### [facility] [address] [place] [address] Dr. Zainab Simpson CAST NONE SEEN Normal NONE SEEN [facility] Comment on above: Performed By: #### U AMIC #### [facility] [address] [place] [address] Dr. Zainab Simpson Clarity (U) CLEAR Normal CLEAR [facility] Comment on above: Performed By: #### U AMIC #### [facility] [address] [address] [address] Zainab Simpson Color (U) LT. YELLOW Normal YELLOW [facility] Comment on above: Performed By: #### U AMIC #### [facility] [address] [address] [address] Zainab Simpson Crystals LM Nom (Urine sed) NONE SEEN Normal NONE SEEN [facility] Comment on above: Performed By: #### U AMIC #### [facility] [address] [address] [address] Zainab Simpson Epithelial cells LM Ql (Urine sed) FEW Abnormal NONE SEEN /RARE [facility] Comment on above: Performed By: #### U AMIC #### [facility] [address] [place] [address] Dr. Zainab Simpson Glucose Ql (U) Negative Normal NEGATIVE [facility] Comment on above: Performed By: #### U AMIC #### [facility] [address] [place] [address] Dr. Zainab Simpson Hemoglobin Ql (U) Negative Normal NEGATIVE [facility] Comment on above: Performed By: #### U AMIC #### [facility] [address] [place] [address] Dr. Zainab Simpson Ketones Ql (U) Negative Normal NEGATIVE [facility] Comment on above: Performed By: #### U AMIC #### [facility] [address] [place] [address] Dr. Zainab Simpson LEUKOCYTES Negative Normal NEGATIVE [facility] Comment on above: Performed By: #### U AMIC #### [facility] [address] [address] [address] Zainab Simpson MUCOUS NONE SEEN Normal NONE SEEN [facility] Comment on above: Performed By: #### U AMIC #### [facility] [address] [place] [address] Dr. Zainab Simpson Nitrite Ql (U) Negative Normal NEGATIVE [facility] Comment on above: Performed By: #### U AMIC #### [facility] [address] [address] [address] Zainab Simpson pH (U) 6.0 [pH] Normal 5-9 [facility] Comment on above: Performed By: #### U AMIC #### [facility] [address] [address] [address] Zainab Simpson RBC NONE SEEN Abnormal 0-2 [facility] Comment on above: Performed By: #### U AMIC #### [facility] [address] [place] [address] Dr. Zainab Simpson SPEC GRAVITY 1.025 Normal 1.005-<=1.025 [facility] Comment on above: Performed By: #### U AMIC #### [facility] [address] [place] [address] Dr. Zainab Simpson UA PROTEIN Negative Normal NEGATIVE/ TRACE [facility] Comment on above: Performed By: #### U AMIC #### [facility] [address] [place] [address] Dr. Zainab Simpson Urobilinogen Qn (U) 0.2 {Robyn'U}/dL Normal 0.2 - 1. 0 [facility] Comment on above: Performed By: #### U AMIC #### [facility] [address] [place] [address] Dr. Zainab Simpson WBC 0-2 Abnormal NONE SEEN [facility] Comment on above: Performed By: #### U AMIC #### [facility] [address] [place] [address] Dr. Zainab Simpson Vital Signs Date Time Vital Sign Value Performing Clinician Faci lity 09-02-2024 10:44-0400 Body mass index (BMI) [Ratio] 45.4 kg/m2 [employer] Work Phone: [facility] [employer] 09-02-2024 10:44-0400 Body weight 137.44 kg [employer] Work Phone: [facility] 09-02-2024 10:44-0400 Diastolic blood pressure 82 mm[Hg] Joellen Flako DO Work Phone: [facility] 09-02-2024 10:44-0400 Systolic blood pressure 124 mm[Hg] Joellen Hedricko DO Work Phone: [facility] Healthcare Encounters Encounter Date Encounter Type Care Provider Facility Start: 09-03-2024 End: 09-03-2024 ambulatory Joellen Arriola [facility] Work Phone: Start: 09-03-2024 End: 09-03-2024 Departed Referred DO Joellen Arriola Work Phone: [facility] Start: 09-02-2024 End: 09-02-2024 Patient encounter procedure Joellen Arriola DO Work Phone: [facility] Comment on above: Pre-op examination; Request for sterilization; Menorrhagia with regular cycle; Abnormal uterine bleeding (AUB); Pelvic pain in female; Dysmenorrhea Start: 09-02-2024 End: 09-02-2024 Preprocedural examination done Joellen Arriola DO Work Phone: [facility] Start: 09-02-2024 End: 09-02-2024 ambulatory JOELLEN FLAKO Not Available Start: 07-29-2024 End: 07-29-2024 ambulatory JOELLEN FLAKO Not Available Start: 06-10-2024 Encounter for gynecological examination (general) (routine) without abnormal findings Joellen Hedricko DO Work Phone: [facility] Start: 06-10-2024 End: 06-10-2024 ambulatory TRIP AICHHOLZ Not Available Start: 10-31-2022 End: 11-01-2022 ambulatory [employer]AGE [employer] TRIP AICHHOLZ Facility:[facility] Start: 01-24-2022 End: 01-25-2022 ambulatory MESSAGE BR[employer] DEVELOPER TRIP AICHHOLZ Facility:[facility] Start: 01-18-2022 End: 01-18-2022 ambulatory MESSAGE BR[employer]ER DEVELOPER TRIP AICHHOLZ Facility:[facility] Start: 01-15-2022 End: 01-16-2022 ambulatory MESSAGE [employer] DEVELOPER TRIP AICHHOLZ Facility:[facility] Procedures Date Procedure Procedure Detail Performing Clinician Start: 09-02-2024 Urine test visual color cmprsn meths Joellen Arriola DO Work Phone: Start: 06-17-2024 Mammography Joellen grider DO Work Phone: Start: 06-10-2024 Microscopic observat ion [Identifier] in Cervix by Cyto stain Joellen Arriola DO Work Phone: Plan of Treatment Date Care Activity Detail Author Start: 06-10-2027 Screening for malignant neoplasm of cervix [facility] Start: 01-18-2027 Screening for malignant neoplasm of cervix HPV/Cotest [facility] Start: 06-17-2025 Screening for malignant neoplasm of breast Mammogram [facility] Tissue exam Tissue exam Path ology and Cytology Routine Dysmenorrhea Ordered: 09/02/2024 [facility] Work Phone: Comment on above: Ordered: 09/02/2024 Payers Date Payer Category Payer Self-pay 2022 Medicaid [employer] [place] [id number] 1981 Unknown [id number] 1981 Unknown [id number] 1981 Unknown [id number] 1981 Unknown [id number] 1981 Unknown [id number] 1981 Unknown [id number] 1981 Unknown [id number] 1959 Unknown [id number] Medicaid [id number] Unknown [employer] [id number] Social History Date Type Detail Facility Start: 06-10-2024 Tobacco smoking stat [facility] Smokes tobacco daily [facility] History of [...] to any clubs or organizations such as restoration groups, unions, fraternal or athletic groups, or [...] To some extent [facility] (I/We) worried abdulaziz er (my/our) food would run out before (I/we) got money to buy more. Never true [facility] Start: 06-10-2024 Tobacco Comment vapes [facility] Start: 1981 Sex assigned at Not on file [facility] Start: 1980 Sex Assigned At Female [facility] History of Present illness Narrative 09-02-2024 Monika Cat - 09/02/2024 10:30 AM EDT Note Date & Type Note Facility 09-02-2024 History of Presen t illness Narrative Reason for Appointment: Patient ID: Jose Rodriguez is a 43 y.o. female who presents for Pre-op Visit and Endometrial Biopsy Patient presents today for Pre Op/Endometrial Biopsy appointment. Patient is scheduled to undergo Da Varun assisted Bilateral Laparoscopic Salpingectomy and Endometrial Ablation with Maggie on 09/27/[address] Arriola at [facility]. MEDICATIONS Current Outpatient Medications Medication Instructions atorvastatin [...] Ambulatory Problems Diagnosis Date Noted Mixed hyperlipidemia (CMS/HCC) 06/10/2024 Morbid obesity due to excess calories (CMS/HCC) 06/10/2024 Mixed anxiety and depressive disorder 06/10/2024 [...] nursing note reviewed. Exam conducted with a crystal gazer present. Vitals: Estimated body mass index is [...] reviewed, and patient is to proceed to [facility] OR. Follow Up: Patient is [...] Facility Evaluation note No assessment information availa [facility] Work Phone: Summary Purpose Family History No Family History Records FoundNo Family History Records FoundNo Family History Records Found Advance Directives No Advanced Directives Records FoundNo Advanced Directives Records FoundNo Advanced Directives Records Found Additional Source Comments INFORMATION SOURCE (unrecogn ized section and content) DATE CREATED AUTHOR 01/11/2023 [facility] DATE CREATED AUTHOR AUTHOR'S ORGANIZ ATION 09/03/2024 [facility] EPIC DATE CREATED AUTHOR AUTHOR'S ORGANIZ ATION 09/12/2024 [facility] Reason for Visit (unrecogniz ed section and content) Reason Comments Pre-op Visit Endometrial Biopsy Care Teams (unrecognized sec tion and content) Process Worker Relationship Specialty Start Date End Date Brad Lala MD [address] [place] [phone] PCP - General Family Medicine 05/14/24 Team [...] BE BASED ON THE PRIMARY CLINICAL RECORDS. [employer] [facility]. provides no warranty or guarantee of the accuracy or completeness of information in this document.
[2024-09-27 07:51] LABS: Basophils Percent Auto 0.6 % (0.2-2.0); Eosinophils Absolute Auto 0.2 10^3/uL (0.0-0.7); Eosinophils Percent Auto 3.1 % (0.9-7.0); Hematocrit 39.4 % (36.0-48.0); Hemoglobin 12.9 g/dL (12.0-16.0); Immature Granulocytes Abs Auto 0.01 10^3/uL (0.00-0.03); Immature Granulocytes Pct Auto 0.1 % (0.0-0.5); Mean Corpuscular HGB Conc 32.7 g/dL (29.9-35.2); Mean Corpuscular Hemoglobin 27.2 pg (26.7-34.0); Mean Corpuscular Volume 83.1 fL (81.0-99.0); Mean Platelet Volume 9.8 fL (9.5-13.5); Monocytes Absolute Auto 0.4 10^3/uL (0.3-0.8); Monocytes Percent Auto 5.4 % (1.7-12.0); Neutrophils Absolute Auto 4.3 10^3/uL (1.4-6.5); Neutrophils Percent Auto 61.8 % (43.0-75.0); Platelet Count 293 10^3/uL (150-450); Red Blood Count 4.74 10^6/uL (4.20-5.40); Red Cell Distribution Width 12.4 % (11.0-15.0)
[2024-09-27] MEDS: LACTATED RINGER'S SOLUTION 1,000 ML 50 ML IV ×2 (08:13→10:41)
[2024-09-27 08:25] LABS: HCG Quantitative <1 mIU/mL
--- NOTE | 2024-09-27 10:49 | P.ON_ITS ---
Brief Operative Note Date of procedure: 09/27/24 Pre-op diagnosis general: menorrhagia, desires sterilization Post-op diagnosis: same as pre-op Procedure: NAME OF PROCEDURE: robotic assisted Laparoscopic bilateral salpingectomy, with Maggie endometrial ablation with hysteroscopy removal of iud PROCEDURE: The patient was taken back to the OR where she was prepped and draped in the normal sterile fashion after being placed in the dorsal lithotomy position, after being placed under general anesthesia without difficulty. a weighted speculum was then placed into the vagina. Pap and endometrial bx were performed without difficultyThe anterior lip was grasped with a single tooth tenaculum. The patient was then sounded to approximatley 9cm. The patient was gently sounded using Hegar dilators and the hysteroscope was passed through the cervix into the uterus where both ostia were seen. No gross evidence of polyps, fibroids or malignancy. The cervical length was noted to be 4cm. The Maggie ablation apparatus was set to approximately 5cm in length. This was placed in through the cervix and into the uterus. After the seal was tested, at that time the total ablation of 120 seconds was performed with the Maggie without difficulty. All instruments were removed from the vagina. please note iud removed easily with ring forceps prior to the procedure. A wet sponge stick was placed into the patient's vagina. Attention was then turned to the patient's abdomen, where a scalpel was used to make a small infraumbilical incision. The S retractors were then used to dissect the underlying layers until the fascia could be seen. The fascia was then grasped with Bhakti clamps and tented up. A knife was then used to make a small incision to the fascia. The muscle was identified, at that time two sutures of #0 Vicryl on a GI needlewas then used and placed through the fascia. The peritoneum was then identified and entered bluntly. The 10-4 Dorothy was then placed into the patient's abdomen. This was confirmed with direct visualization of the bowel, using the laparoscope. The patient's abdomen was then insufflated using approximately 4 liters of CO2 gas. Survey of the patient's abdomen demonstrated normal appearing ovaries, uterus and tubes. A second and third lateral robotic ports, which was 8mm in size, was then placed laterally after incision was made in the skin under direct visualization. the robotic arms were engaged. The patient's tube on the patient's right side was identified. The tube was then tented up using a grasper. The ligasure was used to transect and coagulate the mesosalpingx from the fimbriated end to the insertion at the uterus, the tube was amputated and removed in its entirety.? Excellent hemostasis was noted. ?This was performed on the contralateral sideas well. The lateral ports were then moved under direct visualization with excellent hemostasis. The abdomen was deinsufflated. All instruments were removed from the patient's abdomen. The fascia was closed using the #0 Vicryl on GI needle. The skin was closed using 4- 0 Vicryl subcuticularly. All instruments were removed from the patient's vagina as well. The patient was taken out of the dorsal lithotomy position and placed in the supine position and taken to recovery in stable condition. Sponge, lap and needle counts were correct x2. ??? Anesthesia: ERLINDA Surgeon: Curtis Arriola Assessment Manager: Shelbi Turner Estimated blood loss (mL): 5 Pathology: other (tubes) Condition: stable Disposition: PACU Urinary Catheter Management Urinary Catheter Management Urethral: Cath placed during this visit: no
[2024-09-27] MEDS: HYDROMORPHONE HCL 0.5 MG/0.5 ML SYRINGE IV (11:07)
[2024-09-27] MEDS: HYDROCODONE/ACET 5-325 MG TABLET 1 TAB PO (13:24)
--- NOTE | 2024-09-27 15:39 | RESP.RT ---
done per nursing
== END 2024-09-27 13:35 | disposition home or self-care (01) ==
PROVIDERS: PCP Nurse Practitioner; Visit Provider Obstetrics & Gynecology
PROC: (CPT 840; principal; 2024-09-27 09:00)
DX: Z30.2 Encounter for sterilization (principal); N92.0 Excessive and frequent menstruation with regular cycle; N93.9 Abnormal uterine and vaginal bleeding, unspecified; R10.2 Pelvic and perineal pain; E66.01 Morbid (severe) obesity due to excess calories; Z68.41 Body mass index [BMI] 40.0-44.9, adult; F17.290 Nicotine dependence, other tobacco product, uncomplicated; E78.5 Hyperlipidemia, unspecified
CPT/HCPCS: 58301; 58563; 58661; 36415; 84702; 85025; 88302; 94667; J1100; J1171; J1885; J2250; J2405; J2704; J3010

== ENCOUNTER 2024-11-30 10:40 | Outpatient (OUT) | payer MEDICAID, SELFPAY ==
--- OUTSIDE RECORDS SUMMARY | 2024-11-30 10:43 | XMS_ITS | CCD ---
Author Organization [facility] Care Team Providers Care Automated Weaver Name Role Phone AICHHOLZ, DRAFTING LAYOUT MAN TANVI Consulting Unavailable AICHHOLZ, DRAFTING LAYOUT MAN TANVI Primary Care Unavailable AICHHOLZ, DRAFTING LAYOUT MAN TANVI Admitting Unavailable AICHHOLZ, DRAFTING LAYOUT MAN TANVI Attending Unavailable AICHHOLZ, DRAFTING LAYOUT MAN TANVI Consulting Unavailable AICHHOLZ, DRAFTING LAYOUT MAN TANVI Primary Care Unavailable AICHHOLZ, DRAFTING LAYOUT MAN TANVI Admitting Unavailable AICHHOLZ, DRAFTING LAYOUT MAN TANVI Attending Unavailable AICHHOLZ, DRAFTING LAYOUT MAN TANVI Consulting Unavailable AICHHOLZ, DRAFTING LAYOUT MAN TANVI Primary Care Unavailable AICHHOLZ, DRAFTING LAYOUT MAN TANVI Admitting Unavailable AICHHOLZ, DRAFTING LAYOUT MAN TANVI Attending Unavailable AICHHOLZ, DRAFTING LAYOUT MAN TANVI Primary Care Unavailable DR JINNY WHITE V Consulting Unavailable AICHHOLZ, DRAFTING LAYOUT MAN TANVI Admitting Unavailable AICHHOLZ, DRAFTING LAYOUT MAN TANVI Attending Unavailable AICHHOLZ, DRAFTING LAYOUT MAN TANVI Consulting Unavailable AICHHOLZ, TANVI Attending Unavailable FLAKO, JOELLEN Attending Unavailable AICHHOLZ, TANVI Referring Unavailable FLAKO, JOELLEN Attending Unavailable Brad Lala MD Primary Care Provider DO Joellen Arriola Attending Provider [phone] Flako, Joellen Admitting Unavailable Flako, Joellen Attending Unavailable Joellen Arriola Attending Unavailable Flako, Joellen Admitting Unavailable Joellen Arriola DO Attending Provider [phone] Allergies Allergy Classification Reported Allergen(s) Allergy Type Date of Onset Reaction(s) Facility (8 sources) Wound Dressing Adhesive Propensity to adverse reactions to drug 4 Rash [facility] Medications Current Medications Medication Drug Class(es) Dates Sig (Normalized) Sig (Original) atorvastatin 10 mg oral tablet (10 sources) HMG-CoA Reductase Inhibitor Start: 08-13-2024 End: 12-11-2024 take 1 tablet by mouth at bedtime atorvastatin (Lipitor) 10 MG tablet Indications: Mixed hyperlipidemia (CMS/HCC) Take 1 tablet (10 mg) by mouth at bedtime 30 tablet 1 11/11/2024 12/11/2024 Active Start: 06-12-2024 take 1 tablet by dash th at bedtime atorvastatin (Lipitor) 10 MG tablet Indications: Mixed hyperlipidemia (CMS/HCC) Take 1 tablet (10 mg) by mouth at bedtime 30 tablet 1 06/12/2024 Active chlorhexidine gluconate 40 m g/ml medicated liquid soap (8 sources) Start: 06-10-2024 Chlorhexidine Gluconate (Hibiclens) 4 % solution Indications: Folliculitis Apply to torso and breast area leave on for 5 minutes and then wash off. Do this daily for 5 doses. Avoid use on face 118 mL 06/10/2024 Active Problems Active Problems Problem Classification Problem Date Documented Date Episodic/Chronic Anxiety disorders (8 sources) Mixed anxiety and depressive disorder; Translations: [Other specified anxiety disorders] Onset: 06-10-2024 06-10-2024 Chronic Conditions associated with dizziness or vertigo (4 sources) Dizziness and giddiness; Translations: [DIZZINESS AND GIDDINESS] Onset: 10-31-2022 Episodic Contraceptive and procreative management (1 source) Sterilization requested; Translations: [Encounter for sterilization] 09-02-2024 Episodic Disorders of lipid metabolism (15 sources) Hyperlipidemia, unspecified; Translations: [Mixed hyperlipidemia] Onset: 01-15-2022 Chronic Menstrual disorders (18 sources) Menorrhagia; Translations: [Excessive and frequent menstruation with regular cycle] Onset: 06-10-2024 09-02-2024 Chronic Mood disorders (1 source) Mood disorders; Translations: [DEPRESSION UNSPECIFIED] Onset: 01-19-2022 Other female genital disorders (1 source) Abnormal uterine bleeding; Translations: [Abnormal uterine and vaginal bleeding, unspecified] 09-02-2024 Chronic Other nutritional; endocrine; and metabolic disorders (1 source) Morbid (severe) obesity due to excess calories; Translations: [MORBID SEVERE OBES D/T EXCESS WILMA] Onset: 01-19-2022 Chronic Other nutritional; endocrine; and metabolic disorders (1 source) Body mass index (BMI) 40.0-44.9, adult; Translations: [BODY MASS INDEX BMI 40.0-44.9 ADULT] Onset: 01-19-2022 Chronic Other nutritional; endocrine; and metabolic disorders (8 sources) Morbid obesity; Translations: [Morbid (severe) obesity due to excess calories] Onset: 06-10-2024 06-10-2024 Chronic Past or Other Problems Problem Classification Problem Date Documented Date Episodic/Chronic Abdominal pain (9 sources) Pain in female pelvis; Translations: [Pelvic and perineal pain] Onset: 07-29-2024 09-02-2024 Episodic Administrative/social admission (1 source) Counseling procedure with explicit context; Translations: [Other specified counseling] 07-29-2024 Episodic Complication of device; implant or graft (2 sources) Menorrhagia; Translations: [Other specified complication of genitourinary prosthetic devices, implants and grafts, initial encounter] Onset: 07-29-2024 07-29-2024 Episodic Genitourinary symptoms and ill-defined conditions (1 source) Asymptomatic microscopic hematuria; Translations: [ASYMPTOMATIC MICROSCOPIC HEMATURIA] Onset: 01-19-2022 Episodic Inflammatory diseases of female pelvic organs (8 sources) Bacterial vaginosis; Translations: [Acute vaginitis] Onset: 06-12-2024 06-12-2024 Episodic Other female genital disorders (8 sources) Vaginal discharge; Translations: [Other specified noninflammatory disorders of vagina] Onset: 06-10-2024 06-10-2024 Episodic Other screening for suspected conditions (not mental disorders or infectious disease) (16 sources) Encounter for screening mammogram for malignant neoplasm of breast; Translations: [Encounter for screening for malignant neoplasm of cervix] Onset: 01-18-2022 Episodic Other skin disorders (8 sources) Folliculitis; Translations: [Follicular disorder, unspecified] Onset: 06-10-2024 06-10-2024 Episodic Residual codes; unclassified (1 source) Family history of malignant neoplasm of trachea, bronchus and lung; Translations: [FAM HX MALIG NEOPLSM TRACH BRON LNG] Onset: 01-26-2022 Episodic Residual codes; unclassified (8 sources) Patient participation status; Translations: [Other specified health status] Onset: 06-10-2024 06-10-2024 Episodic Spondylosis; intervertebral disc disorders; other back problems (8 sources) Low back pain; Translations: [Lumbar back pain] Onset: 06-10-2024 06-10-2024 Episodic Results Test Name Value Interpretation Reference Range Facility Pathology study report docum entOrdered By: Navjot Rdz on 09-30-2024 Pathology study [facility] Other ALL CBC WITH AUTO DIFFon BASOPHILS ABSOLUTE AUTO 0 [facility] Basophils/100 WBC (Bld) 0.6 % 0.2 - 2.0 % [facility] Eosinophils/100 WBC (Bld) 3.1 % 0.9 - 7.0 % [facility] Erythrocyte distribution width (RBC) [Ratio] 12.4 % 11.0 - 15.0 % [facility] Hematocrit (Bld) [Volume fraction] 39.4 % 36.0 - 48.0 % [facility] Hemoglobin (Bld) [Mass/Vol] 12.9 g/dL 12.0 - 16.0 g/dL [facility] IMMATURE GRANULOCYTES ABS AUTO 0.01 [facility] Immature granulocytes/100 WBC (Bld) 0.1 % 0.0 - 0.5 % [facility] LYMPHOCYTES ABSOLUTE AUTO 2 [facility] Lymphocytes/100 WBC (Bld) 29 % 20.5 - 60.0 % [facility] MCH (RBC) [Entitic mass] 27.2 pg 26.7 - 34.0 pg [facility] MCHC (RBC) [Mass/Vol] 32.7 g/dL 29.9 - 35.2 g/dL [facility] MCV (RBC) [Entitic vol] 83.1 fL 81.0 - 99.0 fL [facility] MONOCYTES ABSOLUTE AUTO 0.4 [facility] Monocytes/100 WBC (Bld) 5.4 % 1.7 - 12.0 % [facility] NEUTROPHILS ABSOLUTE AUTO 4.3 [facility] Neutrophils/100 WBC (Bld) 61.8 % 43.0 - 75.0 % [facility] Platelet mean volume (Bld) [Entitic vol] 9.8 fL 9.5 - 13.5 fL [facility] TBH EO # 0.2 [facility] TBH PLT 293 [facility] TBH RBC 4.74 [facility] TB WBC 7 [facility] Rudi 09-27-2024 L - -------- Specimen: [id number] Received: 09/27/24 Status: MIGUEL Stone Num: [id number] Spec Type: Surgical Subm Dr: Joellen Arriola Tissues: A Fallopian Tube - Sterilization (VALERY FAL TUBES) Procedures: HE/2, Jose Luis/Ricardo L2 -------- Age/ Patient Sex Location Account Attending Physician -------- Jose Rodriguez 44/F [facility] [id number] Joellen Arriola -------- SPEC NUM: [id number] RECD: 09/27/24 STATUS: MIGUEL STONE NUM: [id number] JAMILA: 09/27/[address]: Joellen Arriola ENTERED: 09/27/24-1403 [facility] [address]: Mesfin,Gillian SPEC TYPE: Surgical DEPT: ISABELLE ANSARI ENTERED BY: [id number] RECV BY: [id number] ORDERED: HE/2, Gross/Micro L2 ORDERED: HE/2, Gross/Micro L2 Pathological Diagnosis Bilateral fallopian tubes, bilateral tubal ligation: - Completely transected bilateral fallopian tubes with no significant histopathology. Clinical Information Sterilization, menorrhagia, abnormal uterine bleeding, pelvic pain. Gross Description Request for sterilization are bilateral, unoriented fallopian tubes with fimbriated distal ends, 5 x 0.8 cm, and 7 x 0.8 cm. The serosa is rutledge-purple, smooth and glistening. Serial sections reveal pinpoint lumen within each segment as follows: A1 Entirety of longitudinally bisected distal tip and sales representative rural power cross-sections from shorter tube A2 Entirety longitudinally bisected distal tip and sales representative rural power cross-sections from longer tube (2, ss, [id number])J Microscopic Description Microscopic examination is performed. -------- Specimen: [id number] Received: 09/27/24 Status: MIGUEL Stone Num: [id number] Spec Type: Surgical Subm Dr: Joellen Arriola Tissues: A Fallopian Tube - Sterilization (VALERY FAL TUBES) Procedures: HE/2, Gross/Micro L2 -------- Patient: MohanJose davis [id number] (Continued) -------- Specimen: [id number] Received: 09/27/24 (Continued) Signed (signature on file) Navjot Rdz MD 09/30/241809 -------- Specimen: [id number] Received: 09/27/24 Status: MIGUEL Stone Num: [id number] Spec Type: Surgical Subm Dr: Joellen Arriola Tissues: A Fallopian Tube - Sterilization (VALERY FAL TUBES) Procedures: LIANG/Jose Luis Gallagher/Ricardo L2 -------- Patient: Jose Rodriguez [id number] (Continued) -------- Specimen: [id number] Received: 11/08/24-1403 (Continued) CPT Codes 33167 -------- -------- Specimen: [id number] Received: 09/27/24 Status: MIGUEL Stone Num: [id number] Spec Type: Surgical Subm Dr: Joellen Arriola Tissues: A Fallopian Tube - Sterilization (VALERY FAL TUBES) Procedures: Jose Luis HANSEN/Ricardo L2 -------- Patient: Jose Rodriguez [id number] (Continued) -------- Signed (signature on file) Navjot Rdz MD 09/30/24 2472 Normal [facility] Physician [facility] HCG ( test) Ql (U)o n 10-14-2024 Interpretation and review of laboratory results Normal [facility] Preg Test, Ur Negative [facility] Rudi 09-02-2024 L Specimen: [id number] Received: 09/03/24 Status: MIGUEL Stone Num: [id number] Spec Type: Surgical Subm Dr: Joellen Arriola Tissues: A Endometrium - Biopsy (EMBX) Procedures: HE/2, Gross/Micro L4 Age/ Patient Sex Location Account Attending Physician Jose Rodriguez 43/F [facility] [id number] Joellen Arriola SPEC NUM: [id number] RECD: 09/03/24 STATUS: MIGUEL STONE NUM: [id number] JAMILA: 09/02/24 DR: Joellen Arriola ENTERED: 09/03/[address] [facility] [address]: Mesfin,Lab SPEC TYPE: Surgical DEPT: ISABELLE ANSARI ENTERED BY: [id number] RECV BY: [id number] ORDERED: HE/2, Gross/Micro L4 ORDERED: HE/2, Gross/Micro [...] Description Microscopic examination is performed. CPT Codes 37597 -------- -------- Specimen: [id number] Received: 09/03/24 Status: MIGUEL Stone Num: [id number] Spec Type: Surgical Subm Dr: Joellen Arriola Tissues: A Endometrium - Biopsy (EMBX) Procedures: HE/2, Gross/Micro L4 -------- Patient: Jose Rodriguez [id number] (Continued) -------- Signed (signature on file) Navjot Rdz MD 09/11/24 0935 Normal [facility] ALL CBC WITH AUTO DIFFon BASOPHILS ABSOLUTE AUTO 0.0 [facility] Basophils/100 WBC (Bld) 0.5 % 0.2 - 2.0 % [facility] Eosinophils/100 WBC (Bld) 2.1 % 0.9 - 7.0 % [facility] Erythrocyte distribution width (RBC) [Ratio] 12.5 % 11.0 - 15.0 % [facility] Hematocrit (Bld) [Volume fraction] 39.0 % 36.0 - 48.0 % [facility] Hemoglobin (Bld) [Mass/Vol] 13.0 g/dL 12.0 - 16.0 g/dL [facility] IMMATURE GRANULOCYTES ABS AUTO 0.02 [facility] Immature granulocytes/100 WBC (Bld) 0.3 % 0.0 - 0.5 % [facility] LYMPHOCYTES ABSOLUTE AUTO 2.0 [facility] Lymphocytes/100 WBC (Bld) 25.0 % 20.5 - 60.0 % [facility] MCH (RBC) [Entitic mass] 27.3 pg 26.7 - 34.0 pg [facility] MCHC (RBC) [Mass/Vol] 33.3 g/dL 29.9 - 35.2 g/dL [facility] MCV (RBC) [Entitic vol] 81.8 fL 81.0 - 99.0 fL [facility] MONOCYTES ABSOLUTE AUTO 0.3 [facility] Monocytes/100 WBC (Bld) 4.0 % 1.7 - 12.0 % [facility] NEUTROPHILS ABSOLUTE AUTO 5.3 [facility] Neutrophils/100 WBC (Bld) 68.1 % 43.0 - 75.0 % [facility] Platelet mean volume (Bld) [Entitic vol] 10.1 fL 9.5 - 13.5 fL [facility] TBH EO # 0.2 [facility] TBH PLT 264 [facility] TBH RBC 4.77 [facility] WBC 7.8 [facility] CBC AUTO DIFFon 10-31-2022 BASO # 0.0 103/ul Normal 0.0-0.1 [facility] Comment on above: Performed By: #### C BC #### [facility] [address] [place] [address] Dr. Zainab Simpson Basophils/100 WBC (Bld) 0.5 % Normal 0.2-2.0 [facility] Comment on above: Performed By: #### C BC #### [facility] [address] [place] [address] Dr. Zainab Simpson EO # 0.1 103/ul Normal 0.0-0.7 [facility] Comment on above: Performed By: #### C BC #### [facility] [address] [place] [address] Dr. Zainab Simpson Eosinophils/100 WBC (Bld) 1.6 % Normal 0.9-7.0 [facility] Comment on above: Performed By: #### C BC #### [facility] [address] [place] [address] Dr. Zainab Simpson Erythrocyte distribution width (RBC) [Ratio] 12.2 % Normal 11.0-15.0 [facility] Comment on above: Performed By: #### C BC #### [facility] [address] [place] [address] Dr. Zainab Simpson Hematocrit (Bld) [Volume fraction] 41.2 % Normal 36.0-48.0 [facility] Comment on above: Performed By: #### C BC #### [facility] [address] [place] [address] Dr. Zainab Simpson Hemoglobin (Bld) [Mass/Vol] 13.7 g/dL Normal 12.0-16.0 [facility] Comment on above: Performed By: #### C BC #### [facility] [address] [place] [address] Dr. Zainab Simpson IG # 0.03 10e3/ul Normal 0.00-0.03 [facility] Comment on above: Performed By: #### C BC #### [facility] [address] [place] [address] Dr. Zainab Simpson IG % 0.3 % Normal 0.0-0.5 [facility] Comment on above: Performed By: #### C BC #### [facility] [address] [place] [address] Dr. Zainab Simpson LYMPH # 2.0 103/ul Normal 1.2-3.8 [facility] Comment on above: Performed By: #### C BC #### [facility] [address] [place] [address] Dr. Zainab Simpson Lymphocytes/100 WBC (Bld) 23.1 % Normal 20.5-60.0 [facility] Comment on above: Performed By: #### C BC #### [facility] [address] [place] [address] Dr. Zainab Simpson MANUAL DIFF REQ NO Normal [facility] Comment on above: Performed By: #### C BC #### [facility] [address] [place] [address] Dr. Zainab Simpson MCH (RBC) [Entitic mass] 27.6 pg Normal 26.7-34.0 [facility] Comment on above: Performed By: #### C BC #### [facility] [address] [address] [address] Zainab Simpson MCHC (RBC) [Mass/Vol] 33.3 g/dL Normal 29.9-35.2 [facility] Comment on above: Performed By: #### C BC #### [facility] [address] [address] [address] Zainab Simpson MCV (RBC) [Entitic vol] 82.9 fL Normal 81.0-99.0 [facility] Comment on above: Performed By: #### C BC #### [facility] [address] [address] [address] Zainab Simpson MONO # 0.3 103/ul Normal 0.3-0.8 [facility] Comment on above: Performed By: #### C BC #### [facility] [address] [place] [address] Dr. Zainab Simpson Monocytes/100 WBC (Bld) 3.7 % Normal 1.7-12.0 [facility] Comment on above: Performed By: #### C BC #### [facility] [address] [place] [address] Dr. Zainab Simpson NEUT # 6.3 103/ul Normal 1.4-6.5 [facility] Comment on above: Performed By: #### C BC #### [facility] [address] [place] [address] Dr. Zainab Simpson Neutrophils/100 WBC (Bld) 70.8 % Normal 43.0-75.0 [facility] Comment on above: Performed By: #### C BC #### [facility] [address] [place] [address] Dr. Zainab Simpson Platelet mean volume (Bld) [Entitic vol] 10.3 fL Normal 9.5-13.5 [facility] Comment on above: Performed By: #### C BC #### [facility] [address] [place] [address] Dr. Zainab Simpson PLT 289 103/ul Normal 150-450 [facility] Comment on above: Performed By: #### C BC #### [facility] [address] [place] [address] Dr. Zainab Simpson RBC 4.97 106/ul Normal 4.20-5.40 [facility] Comment on above: Performed By: #### C BC #### [facility] [address] [place] [address] Dr. Zainab Simpson WBC 8.8 103/ul Normal 4.0-11.0 [facility] Comment on above: Performed By: #### C BC #### [facility] [address] [place] [address] Dr. Zainab Simpson FREE T4on 10-31-2022 Free T4 [Mass/Vol] 0.89 ng/dL Normal 0.76-1.46 [facility] Comment on above: Performed By: #### F T4 #### [facility] [address] [place] [address] Dr. Zainab Simpson PROF 14(COMP METB)on 022 Albumin [Mass/Vol] 3.2 g/dL Critically low 3.4-5.0 [facility] Comment on above: Performed By: #### T SH, CMP #### [facility] [address] [place] [address] Dr. Zainab Simpson Albumin/Globulin [Mass ratio] 0.7 {ratio} Normal [facility] Comment on above: Performed By: #### T SH, CMP #### [facility] [address] [place] [address] Dr. Zainab Simpson ALP [Catalytic activity/Vol] 64 U/L Normal 46-116 [facility] Comment on above: Performed By: #### T SH, CMP #### [facility] [address] [place] [address] Dr. Zainab Simpson ALT [Catalytic activity/Vol] 32 U/L Normal 14-59 [facility] Comment on above: Performed By: #### T SH, CMP #### [facility] [address] [place] [address] Dr. Zainab Simpson Anion gap [Moles/Vol] 11.0 mmol/L Normal [facility] Comment on above: Performed By: #### T SH, CMP #### [facility] [address] [address] [address] Zainab Simpson AST [Catalytic activity/Vol] 21 U/L Normal 15-37 [facility] Comment on above: Performed By: #### T SH, CMP #### [facility] [address] [address] [address] Zainab Simpson Bilirubin [Mass/Vol] 0.5 mg/dL Normal 0.2-1.0 [facility] Comment on above: Performed By: #### T SH, CMP #### [facility] [address] [place] [address] Dr. Zainab Simpson Calcium [Mass/Vol] 9.0 mg/dL Normal 8.5-10.1 [facility] Comment on above: Performed By: #### T SH, CMP #### [facility] [address] [place] [address] Dr. Zainab Simpson Chloride [Moles/Vol] 102 mmol/L Normal 98-107 [facility] Comment on above: Performed By: #### T SH, CMP #### [facility] [address] [address] [address] Zainab Simpson CO2 [Moles/Vol] 30.2 mmol/L Normal 21.0-32.0 [facility] Comment on above: Performed By: #### T SH, CMP #### [facility] [address] [place] [address] Dr. Zainab Simpson Creatinine [Mass/Vol] 0.62 mg/dL Normal 0.55-1.02 [facility] Comment on above: Performed By: #### T SH, CMP #### [facility] [address] [place] [address] Dr. Zainab Simpson EGFR-AF GRENADIAN >60 Normal >=60 [facility] Comment on above: Performed By: #### T SH, CMP #### [facility] [address] [place] [address] Dr. Zainab Simpson EGFR-NON AF GRENADIAN >60 Normal >=60 [facility] Comment on above: Performed By: #### T SH, CMP #### [facility] [address] [place] [address] Dr. Zainab Simpson Globulin (S) [Mass/Vol] 4.5 g/dL Normal [facility] Comment on above: Performed By: #### T SH, CMP #### [facility] [address] [address] [address] Zainab Simpson Glucose [Mass/Vol] 90 mg/dL Normal 74-106 [facility] Comment on above: Performed By: #### T SH, CMP #### [facility] [address] [address] [address] Zainab Simpson Potassium [Moles/Vol] 4.2 mmol/L Normal 3.5-5.1 [facility] Comment on above: Performed By: #### T SH, CMP #### [facility] [address] [place] [address] Dr. Zainab Simpson Protein [Mass/Vol] 7.7 g/dL Normal 6.4-8.2 [facility] Comment on above: Performed By: #### T SH, CMP #### [facility] [address] [place] [address] Dr. Zainab Simpson Sodium [Moles/Vol] 139 mmol/L Normal 136-145 [facility] Comment on above: Performed By: #### T SH, CMP #### [facility] [address] [place] [address] Dr. Zainab Simpson Urea nitrogen [Mass/Vol] 10.0 mg/dL Normal 7.0-18.0 [facility] Comment on above: Performed By: #### T SH, CMP #### [facility] [address] [place] [address] Dr. Zainab Simpson Urea nitrogen/Creatinine [Mass ratio] 16.1 mg/mg Normal [facility] Comment on above: Performed By: #### T SH, CMP #### [facility] [address] [place] [address] Dr. Zainab Simpson TSHon 10-31-2022 TSH 2.431 uIU/mL Normal 0.358-3.740 [facility] Comment on above: Performed By: #### T SH, CMP #### [facility] [address] [address] [address] Zainab Simpson MG MAMM SCREEN 3D VALERY CADon 01-24-2022 MG MAMM SCREEN 3D VALERY CAD Patient: JOSE RODRIGUEZ Exam Date: 01/24/2022 : 1980 Gender:F Ordering : KIRBY TANVI [facility]RNE [facility] Admission #: [id number] Family : Order #: [id number] CLICK HERE TO VIEW EXAM RADIOLOGY REPORT PROCEDURE: MAMMOGRAM SCREENING 3D BILATERAL CAD COMPARISON: None. INDICATIONS: Screening mammography Calculator Name NCI Breast Cancer Risk Assessment Tool 5 Year Breast Cancer Risk 0.50% Lifetime Breast Cancer Risk 9.00% Personal Breast Cancer No Personal Ovarian Cancer No Treatments None Family Cancers Grandmother-paternal with lung cancer at age 66. LOCATION: [facility] BREAST COMPOSITION: Heterogeneously dense,which may obscure small [...] White MD on 01/24/2022 at 10:42 Normal [facility] PAP ACOG PANEL 2: 30 to 65on 01-22-2022 . . Normal [facility] Comment on above: Result Comment: Perf ormed at: WB Performed By: #### [id number] #### [facility] [address] [place], [place] [address] Dr. Zainab Simpson DIAGNOSIS: Comment Normal [facility] Comment on above: Result Comment: NEGA TIVE FOR INTRAEPITHELIAL LESION OR MALIGNANCY. Performed at: WB Performed By: #### [id number] #### [facility] [address] [place], [place] [address] Dr. Zainab Simpson HPV Aptima Negative Normal Negative [facility] Comment on above: Result Comment: This nucleic acid amplification test detects fourteen high-risk HPV types (16,18,31,33,35,39,45,51,52,56,58,59,66,68) without differentiation. Performed at: =G Performed By: #### [id number] #### [facility] [address] [place] [address] Dr. Zainab Simpson Methodology: Comment [facility] Comment on above: Result Comment: This liquid based ThinPrep(R) pap test was screened with the use of an image guided system. Performed at: WB Performed By: #### [id number] #### [facility] [address] [place] [address] Dr. Zainab Simpson Note: Comment [facility] Comment on above: Result Comment: The Pap smear is a screening test designed to aid in the detection of premalignant and malignant conditions of the uterine cervix. It is not a diagnostic procedure and should not be used as the sole means of detecting cervical cancer. Both false-positive and false-negative reports do occur. . Performed at: WB Performed By: #### [id number] #### [facility] [address] [place] [address] Dr. Zainab Simpson Performed by: Comment Normal [facility] Comment on above: Result Comment: Loretta Oliveira, Hand Sample Maker (ASCP) Performed at: WB Performed By: #### [id number] #### [facility] [address] [place] [address] Dr. Zainab Simpson Specimen adequacy: Comment [facility] Comment on above: Result Comment: Sati sfactory for evaluation. Endocervical and/or squamous metaplastic cells (endocervical component) are present. Performed at: WB Performed By: #### [id number] #### [facility] [address] [place] [address] Dr. Zainab Simpson Age Gdln ACOG Testing 30-65 [facility] Comment on above: Performed By: #### [id number] #### [facility] [address] [place] [address] Dr. Zainab Simpson VAGINITIS/VAGINOSIS DNA PROB Joe 01-20-2022 Mana species Negative Normal Negative [facility] Comment on above: Performed By: #### V AGINT ####[facility] [address] [place] [address]Dr. Zainab Simpson Gardnerella vaginalis Negative Normal Negative [facility] Comment on above: Performed By: #### V AGINT ####[facility] [address] [place] [address]Dr. Zainab Simpson Trichomonas vaginalis Negative Normal Negative [facility] Comment on above: Performed By: #### V AGINT ####[facility] [address] [place], [place] [address]Dr. Zainab Calvin CBC AUTO DIFFon 01-15-2022 BASO # 0.0 103/ul Normal 0.0-0.1 [facility] Comment on above: Performed By: #### C BC ####[facility] [address] [place], [place] [address]Dr. Zainab Simpson Basophils/100 WBC (Bld) 0.5 % Normal 0.2-2.0 [facility] Comment on above: Performed By: #### C BC ####[facility] [address] [place], [place] [address]Dr. Zainab Simpson EO # 0.2 103/ul Normal 0.0-0.7 [facility] Comment on above: Performed By: #### C BC ####[facility] [address] [place], [place] [address]Dr. Avriladelina Simpson Eosinophils/100 WBC (Bld) 1.8 % Normal 0.9-7.0 [facility] Comment on above: Performed By: #### C BC ####[facility] [address] [place], [place] [address]Dr. Avriladelina Simpson Erythrocyte distribution width (RBC) [Ratio] 12.8 % Normal 11.0-15.0 [facility] Comment on above: Performed By: #### C BC ####[facility] [address] [place], [place] [address]Dr. Zainab Simpson Hematocrit (Bld) [Volume fraction] 40.9 % Normal 36.0-48.0 [facility] Comment on above: Performed By: #### C BC ####[facility] [address] [place] [address]Dr. Zainab Simpson Hemoglobin (Bld) [Mass/Vol] 13.4 g/dL Normal 12.0-16.0 [facility] Comment on above: Performed By: #### C BC ####[facility] [address] [place] [address]Dr. Zainab Simpson IG # 0.02 10e3/ul Normal 0.00-0.03 [facility] Comment on above: Performed By: #### C BC ####[facility] [address] [place], [place] [address]Dr. Avriladelina Calvin IG % 0.2 % Normal 0.0-0.5 [facility] Comment on above: Performed By: #### C BC ####[facility] [address] [place], [place] [address]Dr. Avriladelina Calvin LYMPH # 2.3 103/ul Normal 1.2-3.8 [facility] Comment on above: Performed By: #### C BC ####[facility] [address] [place], [place] [address]Dr. Avriladelina Simpson Lymphocytes/100 WBC (Bld) 26.8 % Normal 20.5-60.0 [facility] Comment on above: Performed By: #### C BC ####[facility] [address] [place] [address]Dr. Zainab Simpson MANUAL DIFF REQ NO Normal [facility] Comment on above: Performed By: #### C BC ####[facility] [address] [place], [place] [address]Dr. Zainab Simpson MCH (RBC) [Entitic mass] 27.6 pg Normal 26.7-34.0 [facility] Comment on above: Performed By: #### C BC ####[facility] [address] [place] [address]Dr. Zainab Simpson MCHC (RBC) [Mass/Vol] 32.8 g/dL Normal 29.9-35.2 [facility] Comment on above: Performed By: #### C BC ####[facility] [address] [place] [address]Dr. Zainab Simpson MCV (RBC) [Entitic vol] 84.3 fL Normal 81.0-99.0 [facility] Comment on above: Performed By: #### C BC ####[facility] [address] [place], [place] [address]Dr. Zainab Calvin MONO # 0.4 103/ul Normal 0.3-0.8 [facility] Comment on above: Performed By: #### C BC ####[facility] [address] [place], [place] [address]Dr. Avriladelina Simpson Monocytes/100 WBC (Bld) 4.9 % Normal 1.7-12.0 [facility] Comment on above: Performed By: #### C BC ####[facility] [address] [place], [place] [address]Dr. Zainab Simpson NEUT # 5.7 103/ul Normal 1.4-6.5 [facility] Comment on above: Performed By: #### C BC ####[facility] [address] [place], [place] [address]Dr. Avriladelina Simpson Neutrophils/100 WBC (Bld) 65.8 % Normal 43.0-75.0 [facility] Comment on above: Performed By: #### C BC ####[facility] [address] [place], [place] [address]Dr. Zainab Calvin Platelet mean volume (Bld) [Entitic vol] 10.1 fL Normal 9.5-13.5 [facility] Comment on above: Performed By: #### C BC ####[facility] [address] [place], [place] [address]Dr. Zainab Simpson PLT 265 103/ul Normal 150-450 [facility] Comment on above: Performed By: #### C BC ####[facility] [address] [place], [place] [address]Dr. Zainab Simpson RBC 4.85 106/ul Normal 4.20-5.40 [facility] Comment on above: Performed By: #### C BC ####[facility] [address] [place] [address]Dr. Zainab Simpson WBC 8.7 103/ul Normal 4.0-11.0 [facility] Comment on above: Performed By: #### C BC ####[facility] [address] [place] [id number]. Zainab Simpson GLYCOHEMOGLOBIN A1Con 2021 ADA RECOMMENDATION ADA THERAPEUTIC TARGET 6.0 - 7.0 ACTION SUGGESTED > 7.0 Normal [facility] Comment on above: Performed By: #### A 1C #### [facility] [address] [place] [address] [address] Zainab Simpson Glucose [Mass/Vol] 111 mg/dL Normal [facility] Comment on above: Performed By: #### A 1C #### [facility] [address] [place] [address] [address] Zainab Simpson HbA1c (Bld) [Mass fraction] 5.5 % Normal <=6.0 [facility] Comment on above: Performed By: #### A 1C #### [facility] [address] [place] [address] [address] Zainab Simpson LIPID PROFILEon 01-15-2022 CHOL-HDL RATIO NORM SEE BELOW Normal [facility] Comment on above: Result Comment: 3.3 - 4.4 LOW RISK 4.4 - 7.1 AVERAGE RISK 7.1 - 11.0 MODERATE RISK >11.0 HIGH RISK Performed By: #### T ERWIN, LIPID, CMP #### [facility] [address] [place] [address] [address] Zainab Simpson Cholesterol [Mass/Vol] 194 mg/dL Normal <=200 [facility] Comment on above: Performed By: #### T ERWIN, LIPID, CMP #### [facility] [address] [place] [address] [address] Zainab Simpson Cholesterol in HDL [Mass/Vol] 50 mg/dL Normal [facility] Comment on above: Performed By: #### T SH, LIPID, CMP #### [facility] [address] [place] [address] [address] Zainab Simpson Cholesterol in LDL [Mass/Vol] 108.8 mg/dL Normal [facility] Comment on above: Performed By: #### T ERWIN, LIPID, CMP #### [facility] [address] [place] [address] [address] Zainab Simpson Cholesterol.total/Ch olesterol in HDL [Mass ratio] 3.9 {ratio} Normal [facility] Comment on above: Performed By: #### T SH, LIPID, CMP #### [facility] [address] [place] [address] [address] Zainab Simpson HDL NORMAL > or = 60 mg/dl - LO W CARDIOVASCULAR RISK <40 mg/dl - HIGH CARDIOVASCULAR RISK Normal [facility] Comment on above: Performed By: #### T ERWIN, LIPID, CMP #### [facility] [address] [place] [address] [address] Zainab Simpson LDL CALC NORMAL SEE BELOW Normal [facility] Comment on above: Result Comment: <100 mg/dl OPTIMAL 100 - 129 mg/dl NEAR OR ABOVE OPTIMAL 130 - 159 mg/dl BORDERLINE HIGH 160 - 189 mg/dl HIGH >190 mg/dl VERY HIGH Performed By: #### T ERWIN, LIPID, CMP #### [facility] [address] [place] [address] [address] Zainab Simpson Triglyceride [Mass/Vol] 176 mg/dL Critically high <=150 [facility] Comment on above: Performed By: #### T ERWIN, LIPID, CMP #### [facility] [address] [place] [address] [address] Zainab Simpson VLDL CALC 35.2 mg/dL Normal [facility] Comment on above: Performed By: #### T SH, LIPID, CMP #### [facility] [address] [place] [address] [address] Zainab Simpson PROF 14(COMP METB)on 022 Albumin [Mass/Vol] 3.2 g/dL Critically low 3.5-5.0 [facility] Comment on above: Performed By: #### T ERWIN, LIPID, CMP ####[facility] [address] [place] [address]Dr. Zainab Simpson Albumin/Globulin [Mass ratio] 0.7 {ratio} Normal [facility] Comment on above: Performed By: #### T ERWIN, LIPID, CMP ####[facility] [address] [place] [address]Dr. Zainab Simpson ALP [Catalytic activity/Vol] 70 U/L Normal 38-126 [facility] Comment on above: Performed By: #### T ERWIN, LIPID, CMP ####[facility] [address] [place], [place] [address]Dr. Zainab Simpson ALT [Catalytic activity/Vol] 28 U/L Normal 9-52 [facility] Comment on above: Performed By: #### T ERWIN, LIPID, CMP ####[facility] [address] [place], [place] [address]Dr. Avriladelina Simpson Anion gap [Moles/Vol] 7.7 mmol/L Normal [facility] Comment on above: Performed By: #### T ERWIN LIPID, CMP ####[facility] [address] [place], [place] [address]Dr. Zainab Simpson AST [Catalytic activity/Vol] 14 U/L Normal 14-36 [facility] Comment on above: Performed By: #### T ERWIN, LIPID, CMP ####[facility] [address] [place], [place] [address]Dr. Zainab Calvin Bilirubin [Mass/Vol] 0.4 mg/dL Normal 0.2-1.3 [facility] Comment on above: Performed By: #### T ERWIN, LIPID, CMP ####[facility] [address] [place], [place] [address]Dr. Avriladelina Simpson Calcium [Mass/Vol] 9.1 mg/dL Normal 8.4-10.2 [facility] Comment on above: Performed By: #### T ERWIN, LIPID, CMP ####[facility] [address] [place], [place] [address]Dr. Zainab Simpson Chloride [Moles/Vol] 105 mmol/L Normal 98-107 [facility] Comment on above: Performed By: #### T ERWIN, LIPID, CMP ####[facility] [address] [place] [id number]. Zainab Simpson CO2 [Moles/Vol] 31.0 mmol/L Critically high 22.0-30.0 [facility] Comment on above: Performed By: #### T SH, LIPID, CMP ####[facility] [address] [place] [id number]. Zainab Simpson Creatinine [Mass/Vol] 0.63 mg/dL Normal 0.52-1.04 [facility] Comment on above: Performed By: #### T SH, LIPID, CMP ####[facility] [address] [place] [id number]. Zainab Simpson EGFR-AF GRENADIAN >60 Normal >=60 The [facility] Comment on above: Performed By: #### T SH, LIPID, CMP ####[facility] [address] [place] [address]Dr. Zainab Simpson EGFR-NON AF GRENADIAN >60 Normal >=60 [facility] Comment on above: Performed By: #### T SH, LIPID, CMP ####[facility] [address] [place] [address]Dr. Zainab Simpson Globulin (S) [Mass/Vol] 4.3 g/dL Normal [facility] Comment on above: Performed By: #### T SH, LIPID, CMP ####[facility] [address] [place] [id number]. Zainab Simpson Glucose [Mass/Vol] 92 mg/dL Normal 74-106 [facility] Comment on above: Performed By: #### T SH, LIPID, CMP ####[facility] [address] [place] [address]Dr. Zainab Simpson Potassium [Moles/Vol] 3.7 mmol/L Normal 3.4-5.0 [facility] Comment on above: Performed By: #### T SH, LIPID, CMP ####[facility] [address] [place] [address]Dr. Zainab Simpson Protein [Mass/Vol] 7.5 g/dL Normal 6.1-8.2 [facility] Comment on above: Performed By: #### T SH, LIPID, CMP ####[facility] [address] [place] [address]DrYogi Simpson Sodium [Moles/Vol] 140 mmol/L Normal 137-145 [facility] Comment on above: Performed By: #### T SH, LIPID, CMP ####[facility] [address] [place] [address]DrYogi Simpson Urea nitrogen [Mass/Vol] 9.0 mg/dL Normal 7.0-17.0 [facility] Comment on above: Performed By: #### T SH, LIPID, CMP ####[facility] [address] [place] [address]Dr. Zainab Simpson Urea nitrogen/Creatinine [Mass ratio] 14.3 mg/mg Normal [facility] Comment on above: Performed By: #### T ERWIN, LIPID, CMP ####[facility] [address] [place] [address]Dr. Zainab Simpson TSHon 01-15-2022 TSH 4.291 uIU/mL Normal 0.470-4.680 The [facility] Comment on above: Performed By: #### T ERWIN, LIPID, CMP #### [facility] [address] [place] [address] [address] Zainab Simpson TSH RANGE SEE BELOW Normal [facility] Comment on above: Result Comment: <0.3 4 UIU/ml HYPERTHYROID 0.34-5.60 UIU/ml EUTHYROID >5.60 UIU/ml HYPOTHYROID Performed By: #### T SH, LIPID, CMP #### [facility] [address] [place] [address] [address] Zainab Simpson UA RANDOM W/MICROSCOPICon BACTERIA TRACE Abnormal NONE SEEN [facility] Comment on above: Performed By: #### U AMIC #### [facility] [address] [place] [address] [address] Zainab Simpson Bilirubin Ql (U) Negative Normal NEGATIVE [facility] Comment on above: Performed By: #### U AMIC #### [facility] [address] [place] [address] [address] Zainab Simpson CAST NONE SEEN Normal NONE SEEN [facility] Comment on above: Performed By: #### U AMIC #### [facility] [address] [place] [address] [address] Zainab Simpson Clarity (U) CLEAR Normal CLEAR [facility] Comment on above: Performed By: #### U AMIC #### [facility] [address] [place] [address] [address] Zainab Simpson Color (U) LT. YELLOW Normal YELLOW [facility] Comment on above: Performed By: #### U AMIC #### [facility] [address] [place] [address] [address] Zainab Simpson Crystals LM Nom (Urine sed) NONE SEEN Normal NONE SEEN [facility] Comment on above: Performed By: #### U AMIC #### [facility] [address] [place] [address] Dr. Zainab Simpson Epithelial cells LM Ql (Urine sed) FEW Abnormal NONE SEEN /RARE [facility] Comment on above: Performed By: #### U AMIC #### [facility] [address] [place] [address] Dr. Zainab Simpson Glucose Ql (U) Negative Normal NEGATIVE The [facility] Comment on above: Performed By: #### U AMIC #### [facility] [address] [place] [address] Dr. Zainab Simpson Hemoglobin Ql (U) Negative Normal NEGATIVE [facility] Comment on above: Performed By: #### U AMIC #### [facility] [address] [place] [address] Dr. Zainab Simpson Ketones Ql (U) Negative Normal NEGATIVE [facility] Comment on above: Performed By: #### U AMIC #### [facility] [address] [place] [address] [address] Zainab Simpson LEUKOCYTES Negative Normal NEGATIVE [facility] Comment on above: Performed By: #### U AMIC #### [facility] [address] [place] [address] [address] Zainab Simpson MUCOUS NONE SEEN Normal NONE SEEN [facility] Comment on above: Performed By: #### U AMIC #### [facility] [address] [place] [address] [address] Zainab Simpson Nitrite Ql (U) Negative Normal NEGATIVE [facility] Comment on above: Performed By: #### U AMIC #### [facility] [address] [place] [address] Dr. Zainab Simpson pH (U) 6.0 [pH] Normal 5-9 [facility] Comment on above: Performed By: #### U AMIC #### [facility] [address] [place] [address] Dr. Zainab Simpson RBC NONE SEEN Abnormal 0-2 [facility] Comment on above: Performed By: #### U AMIC #### [facility] [address] [place] [address] Dr. Zainab Simpson SPEC GRAVITY 1.025 Normal 1.005-<=1.025 [facility] Comment on above: Performed By: #### U AMIC #### [facility] [address] [place] [address] Dr. Zainab Simpson UA PROTEIN Negative Normal NEGATIVE/ TRACE [facility] Comment on above: Performed By: #### U AMIC #### [facility] [address] [place] [address] Dr. Zainab Simpson Urobilinogen Qn (U) 0.2 {Robyn'U}/dL Normal 0.2 - 1. 0 [facility] Comment on above: Performed By: #### U AMIC #### [facility] [address] [place] [address] Dr. Zainab Simpson WBC 0-2 Abnormal NONE SEEN [facility] Comment on above: Performed By: #### U AMIC #### [facility] [address] [place] [address] Dr. Zainab Simpson Vital Signs Date Time Vital Sign Value Performing Clinician Faci lity 09-02-2024 10:44-0400 Body mass index (BMI) [Ratio] 45.4 kg/m2 Joellen Flako [employer] Work Phone: [facility] 09-02-2024 10:44-0400 Body weight 137.44 kg Joellen Flako DO Work Phone: [facility] 09-02-2024 10:44-0400 Diastolic blood pressure 82 mm[Hg] Joellen Flako DO Work Phone: [facility] 09-02-2024 10:44-0400 Systolic blood pressure 124 mm[Hg] Joellen Flako DO Work Phone: [facility] 07-29-2024 08:46-0400 Body mass index (BMI) [Ratio] 45.25 kg/m2 Joellen Flako DO Work Phone: [facility] 07-29-2024 08:46-0400 Body weight 136.99 kg Joellen Flako DO Work Phone: [facility] 07-29-2024 08:46-0400 Diastolic blood pressure 88 mm[Hg] Joellen Flako DO Work Phone: [facility] 07-29-2024 08:46-0400 Systolic blood pressure 142 mm[Hg] Joellen Flako DO Work Phone: [facility] Encounters Encounter Date Encounter Type Care Provider Facility Start: 11-10-2024 End: 11-11-2024 Refill Tanvi Aichblaisez [employer] Work Phone: [facility] Comment on above: Mixed hyperlipidemia (CMS/HCC) Start: 10-11-2024 End: 10-11-2024 Refill Tanvi Aichholz [employer]PARTMENT MANAGER Work Phone: [facility] Comment on above: Mixed hyperlipidemia (CMS/HCC) Start: 09-27-2024 End: 09-27-2024 Clinisync Result Encounter Generic External Data Provider [facility] Unsolicited Start: 09-27-2024 End: 09-27-2024 Clinisync Result Encounter Generic External Data Provider [facility] External [facility] Unsolicited Start: 09-27-2024 End: 09-27-2024 ambulatory Joellen Flako Facility:[facility] Start: 09-27-2024 End: 09-27-2024 Departed Referred Joellen Flako DO Work Phone: [facility] Start: 09-03-2024 End: 09-03-2024 ambulatory Joellen Flako [facility] Work Phone: Start: 09-03-2024 End: 09-03-2024 Departed Referred DO Joellen Flako Work Phone: [facility] Start: 09-02-2024 End: 09-02-2024 Patient encounter procedure Joellen Flako DO Work Phone: [facility] Comment on above: Pre-op examination; Request for sterilization; Menorrhagia with regular cycle; Abnormal uterine bleeding (AUB); Pelvic pain in female; Dysmenorrhea Start: 09-02-2024 End: 09-02-2024 Preprocedural examination done Joellen Flako DO Work Phone: [facility] Start: 09-02-2024 End: 09-02-2024 ambulatory JOELLEN FLAKO Not Available Start: 08-11-2024 End: 08-13-2024 Refill Tanvi Byrne [employer]OTECH[employer]ICAL DEPARTMENT MANAGER Work Phone: [facility] Comment on above: Mixed hyperlipidemia (CMS/HCC) Start: 07-29-2024 End: 07-29-2024 Bamboo flowsheet Joellen Flako DO Work Phone: [facility] Start: 07-29-2024 End: 07-29-2024 Bamboo flowsheet Joellen Flako DO Work Phone: [facility] Start: 07-29-2024 End: 07-29-2024 Clinisync Result Encounter Generic External Data Provider [facility] External Department Unsolicited Start: 07-29-2024 End: 07-29-2024 ambulatory JOELLEN FLAKO Not Available Start: 07-29-2024 End: 07-29-2024 Female genitalia finding Joellen Flako DO Work Phone: [facility] Start: 07-29-2024 End: 07-29-2024 Office outpatient new 20 minutes Joellen Flako DO Work Phone: [facility] Comment on above: Gynecologic exam nor mal; Dysmenorrhea; Encounter to discuss procedure; Lower abdominal pain; Heavy menses due to IUD ([facility]/HCC); Menorrhagia with regular cycle Start: 06-10-2024 Encounter for gynecological examination (general) (routine) without abnormal findings Joellen Flako DO Work Phone: [facility] Start: 06-10-2024 End: 06-10-2024 ambulatory TANVI JOSE ELIAS Not Available Start: 10-31-2022 End: 11-01-2022 ambulatory [employer] TANVI AICHHOLZ Facility:[facility] Start: 01-24-2022 End: 01-25-2022 ambulatory [employer] TANVI AICHHOLZ Facility:[facility] Start: 01-18-2022 End: 01-18-2022 ambulatory [employer] TANVI AICHBLAISEZ Facility:[facility] Start: 01-15-2022 End: 01-16-2022 ambulatory [employer] TANVI AICHHOLZ Facility:[facility] Procedures Date Procedure Procedure Detail Performing Clinician Start: 09-27-2024 ALL CBC WITH AUTO DIFF Joellen Flako DO Work Phone: Start: 09-02-2024 Urine test visual color cmprsn meths Joellen Flako DO Work Phone: Start: 07-29-2024 ALL CBC WITH AUTO DIFF Joellen Flako DO Work Phone: Start: 06-17-2024 Mammography Joellen Fazi o DO Work Phone: Start: 06-10-2024 Microscopic observat ion [Identifier] in Cervix by Cyto stain Joellen Flako DO Work Phone: Plan of Treatment Date Care Activity Detail Author Start: 06-10-2027 Screening for malign ant neoplasm of cervix [facility] Start: 01-18-2027 Screening for malign ant neoplasm of cervix [facility] Start: 06-17-2025 Screening for malign ant neoplasm of breast Mammogram [facility] Start: 09-02-2024 End: 09-02-2024 Patient encounter procedure 09/02/2024 10:30 AM EDT Procedure Visit [facility] [address] [place] [address] Joellen Arriola, DO [address] [place] [address] [facility] Start: 07-29-2024 End: 07-29-2025 aPTT in Blood by Coagulation assay AP[facility] Lab Routine Lower abdominal pain Heavy menses due to IUD (CMS/HCC) Menorrhagia with regular cycle Expected: 07/29/2024, Expires: 07/29/2025 [facility] Comment on above: Expected: 07/29/2024 , Expires: 07/29/2025 Start: 07-29-2024 End: 07-29-2025 CBC W Auto Differential panel - Blood CBC and differential Lab Routine Lower abdominal pain Heavy menses due to IUD (CMS/HCC) Menorrhagia with regular cycle Expected: 07/29/2024 (Approximate), Expires: 07/29/2025 [facility] Work Phone: Comment on above: Expected: 07/29/2024 (Approximate), Expires: 07/29/2025 Start: 07-29-2024 End: 07-29-2025 hCG, quantitative, hCG, quantitative, Lab Routine Lower abdominal pain Heavy menses due to IUD (CMS/HCC) Menorrhagia with regular cycle Expected: 07/29/2024 (Approximate), Expires: 07/29/2025 [facility] Comment on above: Expected: 07/29/2024 (Approximate), Expires: 07/29/2025 Start: 07-29-2024 End: 07-29-2025 Prothrombin time (PT) in Blood by Coagulation assay Protime-INR Lab Routine Lower abdominal pain Heavy menses due to IUD (CMS/HCC) Menorrhagia with regular cycle Expected: 07/29/2024 (Approximate), Expires: 07/29/2025 [facility] Comment on above: Expected: 07/29/2024 (Approximate), Expires: 07/29/2025 Start: 07-29-2024 End: 07-29-2025 Thyrotropin [Units/volume] in Serum or Plasma TSH Lab Routine Lower abdominal pain Heavy menses due to IUD (CMS/HCC) Menorrhagia with regular cycle Expected: 07/29/2024 (Approximate), Expires: 07/29/2025 [facility] Comment on above: Expected: 07/29/2024 (Approximate), Expires: 07/29/2025 Start: 07-29-2024 End: 07-29-2025 Thyroxine (T4) free [Mass/volume] in Serum or Plasma T4, free Lab Routine Lower abdominal pain Heavy menses due to IUD (CMS/HCC) Menorrhagia with regular cycle Expected: 07/29/2024 (Approximate), Expires: 07/29/2025 [facility] Comment on above: Expected: 07/29/2024 (Approximate), Expires: 07/29/2025 Start: 07-29-2024 End: 07-29-2025 US for US PELVIS-TRANSVAG IF INDICATED Imaging Routine Lower abdominal pain Heavy menses due to IUD (CMS/HCC) Menorrhagia with regular cycle Expected: 07/29/2024 (Approximate), Expires: 07/29/2025 [facility] Comment on above: Expected: 07/29/2024 (Approximate), Expires: 07/29/2025 Start: 2002 Screening for malign ant neoplasm of cervix Pap Smear [facility] Tissue exam Tissue exam Path ology and Cytology Routine Dysmenorrhea Ordered: 09/02/2024 [facility] Work Phone: Comment on above: Ordered: 09/02/2024 Payers Date Payer Category Payer Self-pay 2022 Medicaid [id number] 1981 Unknown [id number] 2.16.84 [id number] 1981 Unknown [id number] 2.16.84 [id number] 1981 Unknown [id number] 2.16.84 [id number] 1981 Unknown [id number] 2.16.84 [id number] 1981 Unknown [id number] 2.16.84 [id number] 1981 Unknown [id number] 2.16.84 [id number] 1981 Unknown [id number] 2.16.84 [id number] 1959 Unknown [id number] Medicaid [id number] Unknown [employer] [id number] Social History Date Type Detail Facility Start: 06-10-2024 Tobacco smoking stat [facility] Smokes tobacco daily [facility] History of tobacco use Cigarette Smoker [facility] Start: 07-29-2024 End: 09-02-2024 Alcoholic beverage intake [facility] (finding[facility] Start: 06-10-2024 History of Social function [facility] Start: 06-10-2024 [id number] Health Literacy [facility] How often do you nee d to have someone help you when you read instructions, pamphlets, or other written material from your doctor or pharmacy [SILS] Never [facility] Do you belong to any clubs or organizations such as baptist groups, unions, fraternal or athletic groups, or [...] some extent [facility] (I/We) worried abdulaziz lu (my/our) food would run out before (I/we) got money to buy more. Never true [facility] Start: 06-10-2024 Tobacco Comment vapes [facility] Start: 1980 Sex assigned at Not on file [facility] Start: 1980 Sex Assigned At Female F [facility] Tobacco smoking stat [facility] Unknown if ever smoked [facility] Work Phone: Start: 09-28-2024 Sex Female (finding) [facility] History of Present illness Narrative 09-02-2024 Monika [...] on 09/27/[address] Arriola at [facility]. MEDICATIONS Current Outpatient Medications Medication Instructions atorvastatin [...] nursing note reviewed. Exam conducted with a passenger tire inspector present. Vitals: Estimated body mass index [...] reviewed, and patient is to proceed to [facility]. Follow Up: Patient is to follow up between 1-2 weeks post op to assess proper healing and recovery from procedure. Documented by Alessandra Benedict LPN on behalf of: Joellen Arriola DO documented in this encounter [facility] History of Present illness Narrative 07-29-2024 Alessandra Benedict LPN - 07/29/2024 8:40 AM EDT Note Date & Type Note Facility 07-29-2024 History of Presen t illness Narrative Reason for Appointment: Patient ID: Jose Rodriguez is a 43 y.o. female who presents for Dysmenorrhea (Discuss an IUD that has been inside for over 15 years and discuss a hysterectomy. ) Patient presents today for Consult appointment. MEDICATIONS Current Outpatient Medications Medication Instructions atorvastatin [...] 06/10/2024 Morbid obesity due to excess calories ([facility]) 06/10/2024 Mixed anxiety and depressive disorder 06/10/2024 Participant in health and wellness plan 06/10/2024 Encounter for screening mammogram for malignant neoplasm of breast 06/10/2024 Pap smear, as part of routine gynecological examination 06/10/2024 Dysmenorrhea 06/10/2024 Vaginal discharge 06/10/2024 Lumbar back pain 06/10/2024 Folliculitis 06/10/2024 Bacterial vaginosis 06/12/2024 Resolved Ambulatory Problems Diagnosis Date Noted No Resolved Ambulatory Problems No Additional Past Medical History HISTORY PAST MEDICAL HISTORY SOCIAL HISTORY No past medical history on file. Social History Tobacco Use Smoking status: Every Day Types: Cigarettes Smokeless tobacco: Not on file Tobacco comments: vapes Substance Use Topics Alcohol use: Not Currently Drug use: Not on file FAMILY HISTORY No family history on file. SURGICAL HISTORY History reviewed. No pertinent surgical history. REVIEW OF SYSTEMS Review of Systems: Review of Systems All other systems reviewed and are negative. OBJECTIVE Objective: Physical Exam Constitutional: Appearance: Normal appearance. She is well-developed. Cardiovascular: Rate and Rhythm: Normal rate and [...] nursing note reviewed. Exam conducted with a passenger tire inspector present. Vitals: Estimated body mass index is 45.25 kg/m as calculated from the following: Height as of 06/10/24: 5' 8.5 . Weight as of this encounter: 302 lb. BP: 142/88 Patient's last menstrual period was 06/27/2024 (approximate). ASSESSMENT & PLAN ICD-10-CM 1. Gynecologic exam normal Z01.419 Ambulatory referral to Obstetrics / Gynecology 2. Dysmenorrhea N94.6 3. Encounter to discuss procedure Z71.89 Patient presents today to discuss heavy cycles. Patient has had her gallbladder removed and that is the only abdominal surgery. Patient has heavy cycles and desires to have a hysterectomy. Patient thought that her IUD had fallen out years ago since PCP never saw strings at time of PAP, but this year PCP noted strings and that would mean that IUD has been in for nearly 16 years. Patient does not desire to have removed at this time and would like taken out at time of surgery. Discussed with patient Endometrial Ablation w/ tubal ligation. Patient is not currently sexually active and has not been for 12 years and does NOT desire to have bilateral tubal ligation. Discussed risks with patient in regards to not having salpingectomy and reasoning for having done at time of surgery. Patient at this time still does not desire to have salpingectomy. Gave patient handout for Maggie and discussed workup to outpatient procedure. Patient aware that she will need to have labs drawn, US and endometrial biopsy. Patient to schedule for Diagnostic Lap, Maggie Ablation, IUD removal and bilateral salpingectomy. Patient to schedule for Pre-op/Endometrial Biopsy. Documented by Alessandra Benedict LPN on behalf [...] Facility Evaluation note No assessment information availa [facility] Work Phone: Evaluation note Note Date & Type Note Facility Evaluation note Diagnosis Gynecologic exam normal- Primary Morbid obesity due to excess calories (CMS/HCC) Mixed hyperlipidemia (CMS/HCC) Mixed hyperlipidemia Participant in health and wellness plan Encounter for screening mammogram for malignant neoplasm of breast Dysmenorrhea Vaginal discharge Leukorrhea, not specified as infective Lumbar back pain Lumbago Folliculitis Other specified disease of hair and hair follicles Mixed hyperlipidemia (CMS/HCC) Mixed hyperlipidemia documented in this encounter [facility] Evaluation note Note Date & Type Note Facility Evaluation note Diagnosis Gynecologic exam normal Dysmenorrhea Encounter to discuss procedure Lower abdominal pain Abdominal pain, other specified site Heavy menses due to IUD (CMS/HCC) Menorrhagia with regular cycle documented in this encounter [facility] Evaluation note Note Date & Type Note Facility Evaluation note Diagnosis Mixed hyperlipidemia (CMS/HCC) Mixed hyperlipidemia documented in this encounter [facility] Summary Purpose Family History No Family History Records FoundNo Family History Records FoundNo Family History Records Found Advance Directives No Advanced Directives Records FoundNo Advanced Directives Records FoundNo Advanced Directives Records Found Additional Source Comments INFORMATION SOURCE (unrecogn ized section and content) DATE CREATED AUTHOR 01/11/2023 [facility] DATE CREATED AUTHOR AUTHOR'S ORGANIZ ATION 09/03/2024 [facility] EPIC DATE CREATED AUTHOR AUTHOR'S ORGANIZ ATION 10/02/2024 [facility] Reason for Visit (unrecogniz ed section and content) Reason Comments Pre-op Visit Endometrial Biopsy Reason Comments Med Refill Reason Comments Dysmenorrhea Discuss an IUD that has been inside for over 15 years and discuss a hysterectomy. Specialty Diagnoses / Procedures Referred By Bharati nova Referred To Contact Obstetrics and Gynecology Diagnoses Gynecologic exam normal Procedures [place] OFFICE/OUTPATIENT NEW HIGH MDM 60 MINUTES Tanvi Byrne NP [address] [place] [address] Joellen Arriola, DO [address] [place] [address] [place] [address] Referral ID Status Reason Start Date Expiration Date V isits Requested Visits Authorized [id number] Closed Specialty Services Required 06/10/2024 12/07/2024 1 1 Care Teams (unrecognized sec tion and content) Automated Weaver Relationship Specialty Start Date End Date Brad Lala MD [address] [place] [address] PCP - General Family Medicine 05/14/24 Team Status: Inactive Member Role Status Dates Joellen Arriola DO Attending Provider Active Start : September 03, 2024 End: September 03, 2024 Automated Weaver Relationship Specialty Start Date End Date Brad Lala MD [address] [place] [phone] PCP - General Family Medicine 05/14/24 Team Status: Inactive Member Role Status Dates Joellen Arriola DO Attending Provider Active Start : September 27, 2024 End: September 27, 2024 Automated Weaver Relationship Specialty Start Date End Date Brad Lala MD [address] [place] [phone] PCP - General Family Medicine 05/14/24 Automated Weaver Relationship Specialty Start Date End Date Brad Lala MD [address] [place] [phone] PCP - General Family Medicine 05/14/24 Automated Weaver Relationship Specialty Start Date End Date Brad Lala MD [address] [place] [phone] PCP - General Family Medicine 05/14/24 Automated Weaver Relationship Specialty Start Date End Date Brad Lala MD [address] [place] [phone] PCP - General Family Medicine 05/14/24 Automated Weaver Relationship Specialty Start Date End Date Brad Lala MD [address] [place] [phone] PCP - General Family Medicine 05/14/24 Goals (unrecognized section and content) Goals may be documented in a n alternate sectionGoals may be documented in an alternate section FOR RECORDS PERTAINING TO PATIENTS [...] BE BASED ON THE PRIMARY CLINICAL RECORDS. [facility] [employer] [facility] provides no warranty or guarantee of the accuracy or completeness of information in this document.
[2024-11-30 12:13] LABS: Alanine Aminotransferase 31 U/L (14-59); Aspartate Amino Transferase 16 U/L (15-37); Chol HDL Ratio 3.9; Cholesterol 189 mg/dL (<=200); HDL Cholesterol 49 mg/dL (40-60); LDL Cholesterol Calculated 115.6 mg/dL; Triglycerides 122 mg/dL (<=150); VLDL CHOLESTEROL 24.4 mg/dL
== END 2024-11-30 10:41 | disposition home or self-care (01) ==
LOC: LAB 10:41
PROVIDERS: PCP Nurse Practitioner; Visit Provider Nurse Practitioner
DX: E78.2 Mixed hyperlipidemia (principal)
CPT/HCPCS: 36415; 80061; 84450; 84460